=== PATIENT | female | born 1970 | race Caucasian/White ===

== ENCOUNTER 2021-01-25 06:47 | Outpatient (REF) | payer OTHER, SELFPAY ==
--- NOTE | ~2021-01-25 | XR_ITS ---
EXAMINATION: XR CHEST CLINICAL INFORMATION: Chest pain COMPARISON: None TECHNIQUE: 2 views of the chest were obtained. FINDINGS: No significant abnormality is noted involving the heart, lungs, mediastinum, bony thorax or soft tissues. XR/XR chest 2V IMPRESSION: Unremarkable chest examination.
[2021-01-25 11:10] LABS: MANUAL DIFF FLAG NO
[2021-01-25 11:16] LABS: Basophils Absolute Auto 0.1 X10*3/uL (0.0-0.2); Basophils Percent Auto 1.3 % (0-2); Eosinophils Absolute Auto 0.2 X10*3/uL (0.0-0.4); Eosinophils Percent Auto 2.2 % (0-4); Hematocrit 34.3 % (37.0-47.0); Hemoglobin 10.2 g/dl (12.0-16.0); Imm Gran Abs Auto 0.02 X10*3/uL (0.00-0.03); Imm Gran Pct Auto 0.2 % (0.0-0.4); Lymphocytes Absolute Auto 3.1 X10*3/uL (1.2-4.9); Lymphocytes Percent Auto 36.1 % (20-40); Mean Corpuscular HGB Conc 29.7 g/dl (31.0-35.0); Mean Corpuscular Hemoglobin 21.5 pg (27.0-33.0); Mean Corpuscular Volume 72.4 fL (80.0-98.0); Mean Platelet Volume 10.8 fL (9.4-12.3); Monocytes Percent Auto 11.4 % (2-11); Neutrophils Absolute Auto 4.2 x10*3/uL (2.0-8.3); Neutrophils Percent Auto 48.8 % (45-73); Platelet Count 429 X10*3/uL (160-400); Red Blood Count 4.74 X10*6/uL (4.20-5.50); Red Cell Distribution Width 18.3 % (11.0-16.0); White Blood Count 8.5 X10*3/uL (4.8-10.8)
[2021-01-25 12:04] LABS: Alanine Aminotransferase 11 U/L (0-31); Albumin Level 4.3 g/dL (3.5-5.0); Alkaline Phosphatase 63 U/L (39-117); Anion Gap 16 (12-20); Aspartate Amino Transferase 33 U/L (5-31); Bilirubin Total 0.4 mg/dL (0.0-1.0); Blood Urea Nitrogen 8 mg/dL (9-16); Calcium 9.4 mg/dL (8.4-10.2); Carbon Dioxide 20 mmol/L (22-29); Chloride 108 mmol/L (96-108); Cholesterol 326 mg/dL; Estimated Glomerular Filt Rate > 60; Glucose Fasting 88 mg/dL (60-99); HDL Cholesterol 55 mg/dL; LDL Cholesterol Calculated 236 mg/dl; Potassium 4.5 mmol/L (3.3-5.1); Sodium 139 mmol/L (135-145); Total Protein 7.1 g/dL (6.5-8.0); Triglycerides 176 mg/dL
== END 2021-01-25 06:48 | disposition home or self-care (01) ==
LOC: HO.HMGCLDS 06:47
PROVIDERS: PCP Internal Medicine; Visit Provider Internal Medicine
DX: Z00.01 Encounter for general adult medical examination with abnormal findings (principal); G47.9 Sleep disorder, unspecified; R07.9 Chest pain, unspecified; U09.9 Post COVID-19 condition, unspecified
CPT/HCPCS: 36415; 71046; 80053; 80061; 84443; 85025

== ENCOUNTER 2021-03-02 06:40 | Outpatient (REF) | payer OTHER, SELFPAY ==
[2021-03-02 11:44] LABS: MANUAL DIFF FLAG NO
[2021-03-02 11:49] LABS: Basophils Absolute Auto 0.1 X10*3/uL (0.0-0.2); Basophils Percent Auto 1.3 % (0-2); Eosinophils Absolute Auto 0.3 X10*3/uL (0.0-0.4); Eosinophils Percent Auto 3.9 % (0-4); Hematocrit 34.1 % (37.0-47.0); Hemoglobin 9.9 g/dl (12.0-16.0); Imm Gran Abs Auto 0.02 X10*3/uL (0.00-0.03); Imm Gran Pct Auto 0.3 % (0.0-0.4); Lymphocytes Absolute Auto 3.2 X10*3/uL (1.2-4.9); Lymphocytes Percent Auto 44.8 % (20-40); Mean Corpuscular Hemoglobin 20.8 pg (27.0-33.0); Mean Corpuscular Volume 71.8 fL (80.0-98.0); Mean Platelet Volume 10.7 fL (9.4-12.3); Monocytes Absolute Auto 0.6 X10*3/uL (0.1-1.2); Monocytes Percent Auto 7.9 % (2-11); Neutrophils Percent Auto 41.8 % (45-73); Platelet Count 433 X10*3/uL (160-400); Red Blood Count 4.75 X10*6/uL (4.20-5.50); Red Cell Distribution Width 16.4 % (11.0-16.0); White Blood Count 7.1 X10*3/uL (4.8-10.8)
[2021-03-02 12:14] LABS: Iron 18 mcg/dL (30-160); Percent Iron Saturation 4 % (15-50); Total Iron Binding Capacity 415 mcg/dL (228-428); Unsaturated Iron Binding 397 ug/dL
[2021-03-02 12:24] LABS: Ferritin 10 ng/mL (10-250)
[2021-03-02 12:41] LABS: Vitamin B12 514 pg/mL (200-900)
== END 2021-03-02 06:41 | disposition home or self-care (01) ==
LOC: HO.HMGCLDS 06:40
PROVIDERS: PCP Internal Medicine; Visit Provider Internal Medicine
DX: D64.9 Anemia, unspecified (principal)
CPT/HCPCS: 36415; 82607; 82728; 83540; 85025

== ENCOUNTER 2021-05-16 07:23 | Outpatient (REF) | payer OTHER, SELFPAY ==
[2021-05-16 11:42] LABS: MANUAL DIFF FLAG NO
[2021-05-16 11:58] LABS: Basophils Absolute Auto 0.1 X10*3/uL (0.0-0.2); Basophils Percent Auto 1.3 % (0-2); Eosinophils Absolute Auto 0.3 X10*3/uL (0.0-0.4); Eosinophils Percent Auto 3.8 % (0-4); Hematocrit 41.1 % (37.0-47.0); Hemoglobin 12.4 g/dl (12.0-16.0); Imm Gran Abs Auto 0.01 X10*3/uL (0.00-0.03); Imm Gran Pct Auto 0.1 % (0.0-0.4); Lymphocytes Absolute Auto 3.3 X10*3/uL (1.2-4.9); Lymphocytes Percent Auto 43.8 % (20-40); Mean Corpuscular HGB Conc 30.2 g/dl (31.0-35.0); Mean Corpuscular Volume 79.7 fL (80.0-98.0); Mean Platelet Volume 10.6 fL (9.4-12.3); Monocytes Absolute Auto 0.8 X10*3/uL (0.1-1.2); Neutrophils Absolute Auto 3.1 x10*3/uL (2.0-8.3); Platelet Count 381 X10*3/uL (160-400); Red Blood Count 5.16 X10*6/uL (4.20-5.50); Red Cell Distribution Width 21.6 % (11.0-16.0); White Blood Count 7.6 X10*3/uL (4.8-10.8)
[2021-05-16 12:47] LABS: Ferritin 10 ng/mL (10-250)
[2021-05-16 13:11] LABS: Alanine Aminotransferase 14 U/L (0-31); Albumin Level 4.3 g/dL (3.5-5.0); Alkaline Phosphatase 72 U/L (39-117); Anion Gap 12 (12-20); Aspartate Amino Transferase 35 U/L (5-31); Bilirubin Total 0.3 mg/dL (0.0-1.0); Blood Urea Nitrogen 10 mg/dL (9-16); Calcium 9.4 mg/dL (8.4-10.2); Carbon Dioxide 24 mmol/L (22-29); Chloride 107 mmol/L (96-108); Cholesterol 333 mg/dL; Estimated Glomerular Filt Rate > 60; Glucose Fasting 97 mg/dL (60-99); HDL Cholesterol 61 mg/dL; LDL Cholesterol Calculated 238 mg/dl; Potassium 4.2 mmol/L (3.3-5.1); Sodium 139 mmol/L (135-145); Total Protein 7.1 g/dL (6.5-8.0); Triglycerides 174 mg/dL
== END 2021-05-16 07:24 | disposition home or self-care (01) ==
LOC: HO.HMGCLDS 07:23
PROVIDERS: PCP Internal Medicine; Visit Provider Internal Medicine
DX: D50.9 Iron deficiency anemia, unspecified (principal); L65.9 Nonscarring hair loss, unspecified; E78.9 Disorder of lipoprotein metabolism, unspecified
CPT/HCPCS: 36415; 80053; 80061; 82728; 85025

== ENCOUNTER 2021-08-22 08:31 | Outpatient (REF) | payer OTHER, SELFPAY ==
[2021-08-22 11:59] LABS: Alanine Aminotransferase 12 U/L (0-31); Albumin Level 4.4 g/dL (3.5-5.0); Alkaline Phosphatase 69 U/L (39-117); Anion Gap 12 (12-20); Aspartate Amino Transferase 35 U/L (5-31); Bilirubin Total 0.9 mg/dL (0.0-1.0); Blood Urea Nitrogen 10 mg/dL (9-16); Carbon Dioxide 25 mmol/L (22-29); Chloride 108 mmol/L (96-108); Cholesterol 197 mg/dL; Estimated Glomerular Filt Rate > 60; Glucose Fasting 96 mg/dL (60-99); HDL Cholesterol 54 mg/dL; LDL Cholesterol Calculated 121 mg/dl; Potassium 4.2 mmol/L (3.3-5.1); Sodium 141 mmol/L (135-145); Total Protein 6.8 g/dL (6.5-8.0); Triglycerides 114 mg/dL
[2021-08-22 12:27] LABS: Ferritin 19 ng/mL (10-250); TSH reflex Free T4 1.67 uIU/mL (0.32-4.0)
[2021-08-22 12:31] LABS: Vitamin B12 574 pg/mL (200-900)
[2021-08-29 15:06] LABS: Vitamin D 25-OH, D2 <4 ng/mL; Vitamin D 25-OH, D3 32 ng/mL; Vitamin D 25-OH, Total 32 ng/mL (30-100)
== END 2021-08-22 08:32 | disposition home or self-care (01) ==
LOC: HO.HMGCLDS 08:31
PROVIDERS: PCP Internal Medicine; Visit Provider Internal Medicine
DX: E78.9 Disorder of lipoprotein metabolism, unspecified (principal); D50.9 Iron deficiency anemia, unspecified; R00.2 Palpitations
CPT/HCPCS: 36415; 80053; 80061; 82306; 82607; 82728; 84443

== ENCOUNTER 2022-04-11 06:54 | Outpatient (REF) | payer OTHER, SELFPAY ==
[2022-04-11 11:14] LABS: MANUAL DIFF FLAG NO
[2022-04-11 11:31] LABS: Basophils Absolute Auto 0.1 X10*3/uL (0.0-0.2); Basophils Percent Auto 1.2 % (0-2); Eosinophils Absolute Auto 0.3 X10*3/uL (0.0-0.4); Eosinophils Percent Auto 3.7 % (0-4); Hematocrit 42.4 % (37.0-47.0); Hemoglobin 14.1 g/dl (12.0-16.0); Imm Gran Abs Auto 0.01 X10*3/uL (0.00-0.03); Imm Gran Pct Auto 0.1 % (0.0-0.4); Lymphocytes Absolute Auto 3.1 X10*3/uL (1.2-4.9); Lymphocytes Percent Auto 43.1 % (20-40); Mean Corpuscular HGB Conc 33.3 g/dl (31.0-35.0); Mean Corpuscular Hemoglobin 28.7 pg (27.0-33.0); Mean Corpuscular Volume 86.4 fL (80.0-98.0); Mean Platelet Volume 10.6 fL (9.4-12.3); Monocytes Absolute Auto 0.7 X10*3/uL (0.1-1.2); Neutrophils Percent Auto 41.9 % (45-73); Platelet Count 323 X10*3/uL (160-400); Red Blood Count 4.91 X10*6/uL (4.20-5.50); Red Cell Distribution Width 11.7 % (11.0-16.0); White Blood Count 7.3 X10*3/uL (4.8-10.8)
[2022-04-11 12:06] LABS: Alanine Aminotransferase 15 U/L (0-31); Albumin Level 4.3 g/dL (3.5-5.0); Alkaline Phosphatase 73 U/L (39-117); Anion Gap 14 (12-20); Aspartate Amino Transferase 43 U/L (5-31); Bilirubin Total 0.7 mg/dL (0.0-1.0); Blood Urea Nitrogen 12 mg/dL (9-16); Calcium 9.7 mg/dL (8.4-10.2); Carbon Dioxide 27 mmol/L (22-29); Chloride 107 mmol/L (96-108); Cholesterol 240 mg/dL; Estimated Glomerular Filt Rate > 60; Glucose Fasting 88 mg/dL (60-99); HDL Cholesterol 69 mg/dL; LDL Cholesterol Calculated 147 mg/dl; Potassium 4.3 mmol/L (3.3-5.1); Sodium 144 mmol/L (135-145); Total Protein 6.5 g/dL (6.5-8.0); Triglycerides 123 mg/dL
[2022-04-11 12:20] LABS: Ferritin 33 ng/mL (10-250)
== END 2022-04-11 06:55 | disposition home or self-care (01) ==
LOC: HO.HMGCLDS 06:54
PROVIDERS: Visit Provider Internal Medicine
DX: D50.9 Iron deficiency anemia, unspecified (principal); E78.9 Disorder of lipoprotein metabolism, unspecified
CPT/HCPCS: 36415; 80053; 80061; 82728; 85025

== ENCOUNTER 2022-08-28 06:37 | Outpatient (REF) | payer OTHER, SELFPAY ==
[2022-08-28 11:13] LABS: MANUAL DIFF FLAG NO
[2022-08-28 11:37] LABS: Basophils Absolute Auto 0.1 X10*3/uL (0.0-0.2); Basophils Percent Auto 0.9 % (0-2); Eosinophils Absolute Auto 0.2 X10*3/uL (0.0-0.4); Eosinophils Percent Auto 2.5 % (0-4); Hematocrit 41.7 % (37.0-47.0); Hemoglobin 13.9 g/dl (12.0-16.0); Imm Gran Abs Auto 0.01 X10*3/uL (0.00-0.03); Imm Gran Pct Auto 0.1 % (0.0-0.4); Lymphocytes Absolute Auto 3.3 X10*3/uL (1.2-4.9); Lymphocytes Percent Auto 40.9 % (20-40); Mean Corpuscular HGB Conc 33.3 g/dl (31.0-35.0); Mean Corpuscular Hemoglobin 28.8 pg (27.0-33.0); Mean Corpuscular Volume 86.3 fL (80.0-98.0); Mean Platelet Volume 10.6 fL (9.4-12.3); Monocytes Absolute Auto 0.8 X10*3/uL (0.1-1.2); Neutrophils Absolute Auto 3.6 x10*3/uL (2.0-8.3); Neutrophils Percent Auto 45.6 % (45-73); Platelet Count 340 X10*3/uL (160-400); Red Blood Count 4.83 X10*6/uL (4.20-5.50); Red Cell Distribution Width 11.9 % (11.0-16.0)
[2022-08-28 12:38] LABS: Alanine Aminotransferase 14 U/L (0-31); Albumin Level 4.2 g/dL (3.5-5.0); Alkaline Phosphatase 62 U/L (39-117); Anion Gap 14 (12-20); Aspartate Amino Transferase 36 U/L (5-31); Bilirubin Total 1.1 mg/dL (0.0-1.0); Blood Urea Nitrogen 10 mg/dL (9-16); Calcium 9.2 mg/dL (8.4-10.2); Carbon Dioxide 21 mmol/L (22-29); Chloride 109 mmol/L (96-108); Cholesterol 199 mg/dL; Estimated Glomerular Filt Rate > 60; Glucose Fasting 83 mg/dL (60-99); HDL Cholesterol 61 mg/dL; LDL Cholesterol Calculated 113 mg/dl; Potassium 3.6 mmol/L (3.3-5.1); Sodium 140 mmol/L (135-145); Total Protein 6.7 g/dL (6.5-8.0); Triglycerides 127 mg/dL
== END 2022-08-28 06:38 | disposition home or self-care (01) ==
LOC: HO.HMGCLDS 06:37
PROVIDERS: Absent Provider Internal Medicine Medical Oncology; PCP Internal Medicine; Visit Provider Internal Medicine
DX: D50.9 Iron deficiency anemia, unspecified (principal); E78.9 Disorder of lipoprotein metabolism, unspecified; R23.2 Flushing
CPT/HCPCS: 36415; 80053; 80061; 85025

== ENCOUNTER 2022-08-30 08:12 | Outpatient (AMB) | payer OTHER, SELFPAY ==
--- NOTE | 2022-08-30 08:14 | MHC.PC.OV ---
Vital Signs 08/30/22 08:17 Height 5 ft 2 in Weight 132 lb BMI 24.1 BP 118/62 Blood Pressure Location Rt brachial Position Sitting Pulse 100 Pulse Source Pulse Oximeter Pulse Oximetry (%) 95 Oxygen Delivery Method Room Air Intake Visit Reasons: PE Allergies amoxicillin [AMOXICILLIN] Allergy (Unknown, Verified 08/30/22 08:18) RASH Medication List - Last Reconciled 08/30/22 by Ana Flores MD ascorbic acid (vitamin C) (Vitamin C) 500 mg PO DAILY biotin 10,000 mg PO DAILY cholecalciferol (vitamin D3) (Vitamin D3) 25 mcg PO DAILY ferrous sulfate 324 mg PO ONCE 90 days scopolamine base 1 patch transdermal Q3D PRN simvastatin 20 mg PO DAILY 90 days Tobacco use date assessed: 08/30/22 Dental Screening Dental Screen Date: 08/30/22 Did you have a dental visit in the last 12 months?: Yes Did you have a dental problem in the last 6 months where you did not have access to dental care?: No Was dental information given to patient?: No HPI PE HPI Details Patient is a 52-year-old female came in today for physical exam Due for mammogram She has OBGYN doctor Vikas in [place], breast exams Pap smears through him Patient does not want to have a colonoscopy but she agrees to have a Cologuard Patient says that every now and then she gets pain in her right upper quadrant and it has been happening for the past 2 years She is requesting an ultrasound of her abdomen she is concerned about splenomegaly Labs were done recently reviewed with the patient no signs of splenomegaly in the labs Her physical exam is benign. For patient's own peace of mind I have ordered the ultrasound of abdomen. 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 She is taking simvastatin 20 mg Iron supplement once a week, vitamin-D and vitamin-C. Follow-up 6 months [facility] Medical History Urinary tract infection Family History Other No family history of cancer Social History Household Members: Spouse Housing: House Are you a primary health care attorney to a significant other at home: No Do you presently have visiting nurse or other home services: No Patient Tobacco Use Status: Never used Tobacco e-Cigarette/Vaping Use: Never Used service: No Current occupational status: employed Cognitive needs: No Hearing needs: No Vision needs: No Questionnaire Thrive Questionnaire Date Thrive assessed: 05/30/21 AUDIT C Alcohol Use Questionnaire (AUDIT-C) 1. How often do you have a drink containing alcohol?: Never 3. How often do you have six or more drinks on one occasion?: Never Total Score: 0 Score Reviewed/Action Taken: Yes LANNY-7 AMB Questionnaire LANNY-7 Date LANNY - 7 assessed: 05/30/21 Source: Developed by Drs. Cesar Santamaria, Mali Champion, Cal Lomeli and colleagues, with an educational leola from [employer]. Review of Systems Const Denies chills, Denies fever(s) and Denies headache(s) Eyes Denies blurry vision ENT Denies headache(s), Denies nasal discharge, Denies nasal obstruction, Denies odynophagia and Denies sinus pain Card Denies chest pain at rest and Denies chest pain with activity Resp Denies cough and Denies hemoptysis GI Denies diarrhea, Denies odynophagia, Denies vomiting and Denies hematemesis Reports as per HPI Musc Denies abnormal gait Skin/Breast Reports as per HPI Neuro Denies Neuro-related abnormal movements, Denies Abnormal speech present, Denies abnormal gait, Denies headache(s) and Denies Sensory deficit (Neuro) Psych Denies mood swings and Denies paranoia Endo Reports as per HPI Gera/Lymph Reports as per HPI Aller/Immun Reports as per HPI Physical exam (Primary Care) Vital Signs: Last Vital Signs Pulse 100 08/30/22 08:17 BP 118/62 08/30/22 08:17 Pulse Ox 95 08/30/22 08:17 Oxygen Delivery Method Room Air 08/30/22 08:17 BMI result Body Mass Index 24.1 Tobacco/Smoking Status: Tobacco use Status Tobacco use date assessed 08/30/22 08/30/22 08:19 Patient Tobacco Use Status Never used Tobacco 08/30/22 08:19 e-Cigarette/Vaping Use Never Used 08/30/22 08:19 Thrive Assessment: Date of Thrive Assessment Date Thrive assessed 05/30/21 08/30/22 08:19 Const General: cooperative, comfortable and no acute distress Orientation/consciousness: patient oriented x3 HENMT Head: Yes normocephalic and Yes atraumatic Eyes General: appearance normal, both eyes and all related structures Pupils: Equal, round and reactive pupils present EOM: EOMs intact bilaterally Neck Neck: Yes supple and No lymphadenopathy Thyroid: Thyroid normal Lymphatic: no lymphadenopathy noted Resp Effort & Inspection: normal respiratory effort and able to speak in complete sentences Auscultation: clear to auscultation bilaterally Cardio Heart sounds: S1 normal heart sound present and S2 normal heart sound present GI Palpation (GI): Soft to palpation and nontender Auscultation: normal bowel sounds General: Yes no CVA tenderness Back/Spine/Pelvis Back: no CVA tenderness Skin General skin exam: elasticity normal and turgor normal Neuro General: patient oriented x3 and gait normal Cranial nerves: Yes Equal, round and reactive pupils present Speech: No Abnormal speech present Sensory Exam: No Sensory deficit (Neuro) Coordination: tandem gait normal and Romberg test negative Extrem General: Yes normal exam except as noted and No edema Assessment and Plan Assessment & Plan (1) Encounter for general adult medical examination with abnormal findings: Code(s): Z00.01 - Encounter for general adult medical examination with abnormal findings (2) Lipid disorder: Code(s): E78.9 - Disorder of lipoprotein metabolism, unspecified (3) Left upper quadrant abdominal pain: Code(s): R10.12 - Left upper quadrant pain (4) LFT elevation: Code(s): R79.89 - Other specified abnormal findings of blood chemistry Plan Patient is a 52-year-old female came in today for physical exam Due for mammogram She has OBGYN doctor Valeryk in [place], breast exams Pap smears through him Patient does not want to have a colonoscopy but she agrees to have a Cologuard Patient says that every now and then she gets pain in her right upper quadrant and it has been happening for the past 2 years She is requesting an ultrasound of her abdomen she is concerned about splenomegaly Labs were done recently reviewed with the patient no signs of splenomegaly in the labs Her physical exam is benign. For patient's own peace of mind I have ordered the ultrasound of abdomen. 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 She is taking simvastatin 20 mg Iron supplement once a week, vitamin-D and vitamin-C. Follow-up 6 months Orders: Orders US abdomen complete Today R10.12 - Left upper quadrant pain MM tomosynthesis screening BI Today Z12.31 - Encounter for screening mammogram for malignant neoplasm of breast Referrals Cologuard Test Z12.11 - Encounter for screening for malignant neoplasm of colon Coding Level of Care Code Est Pt Prev Care 40-64y(34427) Diagnoses Encounter for general adult medical examination with abnormal findings Z00.01 Lipid disorder E78.9 Left upper quadrant abdominal pain R10.12 LFT elevation R79.89
[2022-08-30 08:17] VITALS: BP 118/62; PULSE 100; O2SAT 95; BMI 24.1
== END 2022-08-30 09:00 | disposition home or self-care (01) ==
PROVIDERS: Visit Provider Internal Medicine
DX: Z00.01 Encounter for general adult medical examination with abnormal findings (principal); E78.9 Disorder of lipoprotein metabolism, unspecified; R10.12 Left upper quadrant pain; R79.89 Other specified abnormal findings of blood chemistry
CPT/HCPCS: 99396

== ENCOUNTER 2022-09-11 07:59 | Outpatient (REF) | payer OTHER, SELFPAY ==
--- NOTE | ~2022-09-11 | US_ITS ---
EXAMINATION: US ABDOMEN COMPLETE CLINICAL INFORMATION: Left upper quadrant pain, elevated liver function test. COMPARISON: None available. TECHNIQUE: Real-time imaging of the abdominal viscera. FINDINGS: PANCREAS: Normal. ABDOMINAL AORTA: The proximal, mid, and distal segments are normal in caliber. INFERIOR VENA CAVA: Visualized portions are normal. LIVER: Normal. The liver is normal in size. The liver contour is normal. Parenchymal echogenicity is normal. No focal hepatic lesion. There is no intrahepatic biliary duct dilatation seen. GALLBLADDER: Normal. The gallbladder is physiologically distended without evidence of stones, sludge, polyps, wall thickening or pericholecystic fluid. COMMON BILE DUCT: Normal in caliber measuring 0.26 cm in diameter. RIGHT KIDNEY: No nephrolithiasis. No hydronephrosis or focal parenchymal lesions. The kidney measures 10.1 cm in maximum dimension. LEFT KIDNEY: Nonobstructive 0.3 cm calculus in the interpolar region. No hydronephrosis or focal parenchymal lesions. The kidney measures 10.3 cm in maximum dimension. SPLEEN: Normal. The spleen measures 8.9 cm in maximum dimension. FREE FLUID: None. US/US abdomen complete IMPRESSION: 1. Nonobstructive 0.3 cm calculus in the left kidney. 2. Otherwise, normal examination.
== END 2022-09-11 08:00 | disposition home or self-care (01) ==
LOC: HO.HMGCX 07:59
PROVIDERS: PCP Internal Medicine; Visit Provider Internal Medicine
DX: R10.12 Left upper quadrant pain (principal)
CPT/HCPCS: 76700

== ENCOUNTER 2022-10-22 13:03 | Outpatient (AMB) | payer OTHER, SELFPAY ==
--- NOTE | 2022-10-22 13:05 | A.OFFPC_ITS ---
Vital Signs 10/22/22 13:10 Height 5 ft 2 in Weight 128 lb BMI 23.4 BP 128/72 Blood Pressure Location Rt brachial Position Sitting Pulse 91 Pulse Source Pulse Oximeter Pulse Oximetry (%) 98 Oxygen Delivery Method Room Air Intake Visit Reasons: Follow Up ~ US report Allergies amoxicillin [AMOXICILLIN] Allergy (Unknown, Verified 10/22/22 13:05) RASH Medication List - Last Reconciled 10/22/22 by Ana Flores MD ascorbic acid (vitamin C) (Vitamin C) 500 mg PO DAILY biotin 10,000 mg PO DAILY cholecalciferol (vitamin D3) (Vitamin D3) 25 mcg PO DAILY ferrous sulfate 324 mg PO ONCE 90 days scopolamine base 1 patch transdermal Q3D PRN simvastatin 20 mg PO DAILY 90 days Tobacco use date assessed: 10/22/22 Dental Screening Dental Screen Date: 10/22/22 Did you have a dental visit in the last 12 months?: Yes Did you have a dental problem in the last 6 months where you did not have access to dental care?: No Was dental information given to patient?: No HPI Follow Up ~ US report HPI Details Patient is a 52 year female Came in today to go over her ultrasound abdomen report Patient was concerned that she keep having discomfort left upper quadrant and back She was concerned about her spleen Ultrasound shows normal spleen normal liver and within normal range gallbladder However it does show Nonobstructive 0.3 cm calculus in the left kidney. Explained to patient that most likely the stone is not causing any discomfort. There is no hydronephrosis But we talked about the symptoms if the stone gets bigger or move and start causing obstructions. She wanted to talk about what can be done if that happens Discussed briefly the procedure of lithotripsy or cystoscopy for removal of the stone from ureter [facility] Medical History Urinary tract infection Family History Other No family history of cancer Social History Household Members: Spouse Housing: House Are you a primary career services officer to a significant other at home: No Do you presently have visiting nurse or other home services: No Patient Tobacco Use Status: Never used Tobacco e-Cigarette/Vaping Use: Never Used service: No Current occupational status: employed Cognitive needs: No Hearing needs: No Vision needs: No Questionnaire PHQ-9 Over the last 2 weeks, how often have you been bothered by any of the following problems? 1. Little interest or pleasure in doing things: not at all 2. Feeling down, depressed, or hopeless: not at all 3. Trouble falling or staying asleep, or sleeping too much: more than half the days 4. Feeling tired or having little energy: not at all 5. Poor appetite or overeating: not at all 6. Feeling bad about yourself - or that you are a failure or have let yourself or your family down: not at all 7. Trouble concentrating on things, such as reading the newspaper or watching television: not at all 8. Moving or speaking so slowly that other people could have noticed. Or the opposite - being so fidgety or restless that you have been moving around a lot more than usual: not at all 9. Thoughts that you would be better off or of hurting yourself in some way: not at all Total score: 2 Depression Screening Interpretation: Negative 06141 - PHQ-9 Billing: Yes Source: Developed by Drs. Cesar Santamaria, Mali Champion, Cal Lomeli and colleagues, with an educational leola from [employer]. Thrive Questionnaire Date Thrive assessed: 10/22/22 I am a: Patient What is your living situation today?: I have a steady place to live Within the past 12 months, did the food you bought not last and you didn't have the money to get more?: Never true Within the past 12 months, did you worry whether your food would run out before you got money to buy more?: Never true Do you have trouble paying for medicines?: No Do you have trouble getting transportation to medical appointments?: No Do you have trouble paying your heating and electricity bill?: No Do you have trouble taking care of your child, family member or friend?: No Do you have trouble with day-to-day activities such as bathing, preparing meals, shopping, managing finances, etc.?: No Are you currently unemployed and looking for a job?: No Are you interested in more education?: No AUDIT C Alcohol Use Questionnaire (AUDIT-C) 1. How often do you have a drink containing alcohol?: Never 3. How often do you have six or more drinks on one occasion?: Never Total Score: 0 Score Reviewed/Action Taken: Yes LANNY-7 AMB Questionnaire LANNY-7 Date LANNY - 7 assessed: 10/22/22 Feeling nervous, anxious, or on edge: 1 = Several days Not being able to stop or control worryin = Several days Worrying too much about different things: 1 = Several days Trouble relaxin = Several days Being so restless that it is hard to sit still: 0 = Not at all Becoming easily annoyed or irritable: 0 = Not at all Feeling afraid as if something awful might happen: 1 = Several days Total LANNY-7 score (0-4 normal; 5-9 mild; 10-14 moderate; 15-21 severe): 5 Source: Developed by Drs. Cesar Santamaria, Mali Champion, Cal Lomeli and colleagues, with an educational leola from [employer]. LANNY-7 Assessment Billing LANNY-7 Assessment Tool: LANNY-7 Assessment 44692 Review of Systems Const Denies chills and Denies fever(s) ENT Denies epistaxis and Denies nasal discharge Card Denies chest pain Resp Denies chest congestion, Denies cough and Denies hemoptysis GI Denies diarrhea and Denies nausea Skin/Breast Denies rash Neuro Reports no additional complaints Psych Reports no additional complaints Endo Reports no additional complaints Physical exam (Primary Care) Vital Signs: Last Vital Signs Pulse 91 10/22/22 13:10 BP 128/72 10/22/22 13:10 Pulse Ox 98 10/22/22 13:10 Oxygen Delivery Method Room Air 10/22/22 13:10 BMI result Body Mass Index 23.4 Tobacco/Smoking Status: Tobacco use Status Tobacco use date assessed 10/22/22 10/22/22 13:05 Patient Tobacco Use Status Never used Tobacco 10/22/22 13:05 e-Cigarette/Vaping Use Never Used 10/22/22 13:05 PHQ-9: PHQ-9 Score PHQ-9: Total score 2 10/22/22 13:30 Depression Screening Interpretation: Negative Thrive Assessment: Date of Thrive Assessment Date Thrive assessed 10/22/22 10/22/22 13:30 Const General: cooperative, comfortable and no acute distress Orientation/consciousness: patient oriented x3 HENMT Head: Yes normocephalic Eyes General: appearance normal, both eyes and all related structures Neck Neck: Yes supple Resp Effort & Inspection: normal respiratory effort, no cough and no stridor Cardio Rhythm: regular rhythm Heart sounds: S1 normal heart sound present and S2 normal heart sound present Skin General skin exam: turgor normal Neuro General: patient oriented x3, tone normal and moves all extremities Extrem Right lower extremity: no edema Left lower extremity: no edema Assessment and Plan Assessment & Plan (1) Renal calculus, left: Code(s): N20.0 - Calculus of kidney Plan Patient is a 52 year female Came in today to go over her ultrasound abdomen report Patient was concerned that she keep having discomfort left upper quadrant and back She was concerned about her spleen Ultrasound shows normal spleen normal liver and within normal range gallbladder However it does show Nonobstructive 0.3 cm calculus in the left kidney. Explained to patient that most likely the stone is not causing any discomfort. There is no hydronephrosis But we talked about the symptoms if the stone gets bigger or move and start causing obstructions. She wanted to talk about what can be done if that happens Discussed briefly the procedure of lithotripsy or cystoscopy for removal of the stone from ureter Coding Level of Care Code Est Pt Level 3 (98828) Diagnoses Renal calculus, left N20.0 Additional Codes LANNY-7 Assessment Billing - LANNY-7 Assessment Tool: LANNY-7 Assessment [id number] ([id number])
[2022-10-22 13:10] VITALS: BP 128/72; PULSE 91; O2SAT 98; BMI 23.4
== END 2022-10-22 15:05 | disposition home or self-care (01) ==
PROVIDERS: PCP Internal Medicine; Visit Provider Internal Medicine
DX: N20.0 Calculus of kidney (principal)
CPT/HCPCS: 99213

== ENCOUNTER 2023-03-07 07:50 | Outpatient (AMB) | payer OTHER, SELFPAY ==
--- NOTE | 2023-03-07 08:03 | MHC.PC.OV ---
Vital Signs 03/07/23 08:04 Height 5 ft 2 in Weight 131 lb 8 oz BMI 24.0 BP 120/86 Blood Pressure Location Rt brachial Position Sitting Pulse 76 Pulse Source Pulse Oximeter Pulse Oximetry (%) 98 Oxygen Delivery Method Room Air Intake Visit Reasons: 6 Month follow up Allergies amoxicillin [AMOXICILLIN] Allergy (Unknown, Verified 03/07/23 08:06) RASH Medication List - Last Reconciled 03/07/23 by Ana Flores MD ascorbic acid (vitamin C) (Vitamin C) 500 mg PO DAILY biotin 10,000 mg PO DAILY cholecalciferol (vitamin D3) (Vitamin D3) 25 mcg PO DAILY ferrous sulfate 324 mg PO ONCE 90 days scopolamine base 1 patch transdermal Q3D PRN simvastatin 20 mg PO DAILY 90 days Tobacco use date assessed: 03/07/23 Dental Screening Dental Screen Date: 03/07/23 Did you have a dental visit in the last 12 months?: Yes Did you have a dental problem in the last 6 months where you did not have access to dental care?: No Was dental information given to patient?: Patient has dentist HPI 6 Month follow up HPI Details Patient is a 52-year-old female came in for regular follow-up appointment Patient is due for labs last set of labs was August of last year 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 She is complaining of paresthesia both hands The problem has been going on for a while, patient has been wearing splints at night which does help Patient says that she feels weak in her hands now and she gets electric shock-like feeling starting from her elbows all the way to her hands I have ordered EMG nerve conduction study for further evaluate the severity of problem before referring her. She is taking simvastatin 20 mg Iron supplement once a week, vitamin-D and vitamin-C. Follow-up 6 months for physical exam [facility] Medical History Urinary tract infection Family History Other No family history of cancer Social History Household Members: Spouse Housing: House Are you a primary care director rn to a significant other at home: No Do you presently have visiting nurse or other home services: No Patient Tobacco Use Status: Never used Tobacco e-Cigarette/Vaping Use: Never Used service: No Current occupational status: employed Cognitive needs: No Hearing needs: No Vision needs: No Questionnaire PHQ-9 Over the last 2 weeks, how often have you been bothered by any of the following problems? 1. Little interest or pleasure in doing things: not at all 2. Feeling down, depressed, or hopeless: not at all 3. Trouble falling or staying asleep, or sleeping too much: several days 4. Feeling tired or having little energy: not at all 5. Poor appetite or overeating: not at all 6. Feeling bad about yourself - or that you are a failure or have let yourself or your family down: not at all 7. Trouble concentrating on things, such as reading the newspaper or watching television: not at all 8. Moving or speaking so slowly that other people could have noticed. Or the opposite - being so fidgety or restless that you have been moving around a lot more than usual: not at all 9. Thoughts that you would be better off or of hurting yourself in some way: not at all Total score: 1 Depression Screening Interpretation: Negative Depression Screening Done: Yes 99089 - PHQ-9 Billing: Yes Source: Developed by Drs. Cesar Santamaria, Mali Champion, Cal Lomeli and colleagues, with an educational leola from [employer]. Thrive Questionnaire Date Thrive assessed: 03/07/23 I am a: Patient What is your living situation today?: I have a steady place to live Within the past 12 months, did the food you bought not last and you didn't have the money to get more?: Never true Within the past 12 months, did you worry whether your food would run out before you got money to buy more?: Never true Do you have trouble paying for medicines?: No Do you have trouble getting transportation to medical appointments?: No Do you have trouble paying your heating and electricity bill?: No Do you have trouble taking care of your child, family member or friend?: No Do you have trouble with day-to-day activities such as bathing, preparing meals, shopping, managing finances, etc.?: No Are you currently unemployed and looking for a job?: No Are you interested in more education?: No Please select the resources that you would like help with: None Currently or been in a relationship where the following occur: no concerns reported THRIVE Score: 0 AUDIT C Alcohol Use Questionnaire (AUDIT-C) 1. How often do you have a drink containing alcohol?: Never 3. How often do you have six or more drinks on one occasion?: Never Total Score: 0 Score Reviewed/Action Taken: No LANNY-7 AMB Questionnaire LANNY-7 Date LANNY - 7 assessed: 03/07/23 Feeling nervous, anxious, or on edge: 1 = Several days Not being able to stop or control worryin = Several days Worrying too much about different things: 1 = Several days Trouble relaxin = Several days Being so restless that it is hard to sit still: 0 = Not at all Becoming easily annoyed or irritable: 0 = Not at all Feeling afraid as if something awful might happen: 0 = Not at all Total LANNY-7 score (0-4 normal; 5-9 mild; 10-14 moderate; 15-21 severe): 4 Source: Developed by Drs. Cesar Santamaria, Mali Champion, Cal Lomeli and colleagues, with an educational leola from [employer]. LANNY-7 Assessment Billing LANNY-7 Assessment Tool: LANNY-7 Assessment 62081 Review of Systems Const Denies chills and Denies fever(s) ENT Denies epistaxis and Denies nasal discharge Card Denies chest pain Resp Denies chest congestion, Denies cough and Denies hemoptysis GI Denies diarrhea and Denies nausea Skin/Breast Denies rash Neuro Reports no additional complaints Psych Reports no additional complaints Endo Reports no additional complaints Physical exam (Primary Care) Vital Signs: Last Vital Signs Pulse 76 03/07/23 08:04 BP 120/86 03/07/23 08:04 Pulse Ox 98 03/07/23 08:04 Oxygen Delivery Method Room Air 03/07/23 08:04 BMI result Body Mass Index 24.0 Tobacco/Smoking Status: Tobacco use Status Tobacco use date assessed 03/07/23 03/07/23 08:08 Patient Tobacco Use Status Never used Tobacco 03/07/23 08:06 e-Cigarette/Vaping Use Never Used 03/07/23 08:06 PHQ-9: PHQ-9 Score PHQ-9: Total score 1 03/07/23 08:22 Depression Screening Interpretation: Negative Thrive Assessment: Date of Thrive Assessment Date Thrive assessed 03/07/23 03/07/23 08:14 Currently or been in a relationship where the following occur: no concerns reported Const General: cooperative, comfortable and no acute distress Orientation/consciousness: patient oriented x3 HENMT Head: Yes normocephalic Eyes General: appearance normal, both eyes and all related structures Neck Neck: Yes supple Resp Effort & Inspection: normal respiratory effort, no cough and no stridor Cardio Rhythm: regular rhythm Heart sounds: S1 normal heart sound present and S2 normal heart sound present Skin General skin exam: turgor normal Neuro Other: Handgrip is equal both hands General: patient oriented x3, tone normal and moves all extremities Extrem Right lower extremity: no edema Left lower extremity: no edema Assessment and Plan Assessment & Plan (1) Paresthesia of both hands: Code(s): R20.2 - Paresthesia of skin (2) Weakness of both hands: Code(s): R29.898 - Other symptoms and signs involving the musculoskeletal system (3) Lipid disorder: Code(s): E78.9 - Disorder of lipoprotein metabolism, unspecified (4) LFT elevation: Code(s): R79.89 - Other specified abnormal findings of blood chemistry Plan Patient is a 52-year-old female came in for regular follow-up appointment Patient is due for labs last set of labs was August of last year 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 She is complaining of paresthesia both hands The problem has been going on for a while, patient has been wearing splints at night which does help Patient says that she feels weak in her hands now and she gets electric shock-like feeling starting from her elbows all the way to her hands I have ordered EMG nerve conduction study for further evaluate the severity of problem before referring her. She is taking simvastatin 20 mg She has mildly elevated LFTs, we will continue to monitor that Iron supplement once a week, vitamin-D and vitamin-C. Follow-up 6 months for physical exam Orders: Orders Lipid Panel Today E78.9 - Disorder of lipoprotein metabolism, unspecified, R79.89 - Other specified abnormal findings of blood chemistry NE nerve conduction velocity Today R20.2 - Paresthesia of skin, R29.898 - Other symptoms and signs involving the musculoskeletal system Comprehensive [place]. Panel Fast 5 Months E78.9 - Disorder of lipoprotein metabolism, unspecified Lipid Panel 5 Months E78.9 - Disorder of lipoprotein metabolism, unspecified Complete Blood Count Auto Diff Today E78.9 - Disorder of lipoprotein metabolism, unspecified, R79.89 - Other specified abnormal findings of blood chemistry Comprehensive [place]. Panel Fast Today E78.9 - Disorder of lipoprotein metabolism, unspecified, R79.89 - Other specified abnormal findings of blood chemistry NE electromyogram (EMG) Today R20.2 - Paresthesia of skin, R29.898 - Other symptoms and signs involving the musculoskeletal system Coding Level of Care Code Est Pt Level 4 (69169) Diagnoses Paresthesia of both hands R20.2 Weakness of both hands R29.898 Lipid disorder E78.9 LFT elevation R79.89 Additional Codes LANNY-7 Assessment Billing - LANNY-7 Assessment Tool: LANNY-7 Assessment 32752 ([id number])
[2023-03-07 08:04] VITALS: BP 120/86; PULSE 76; O2SAT 98; BMI 24.0
== END 2023-03-07 09:39 | disposition home or self-care (01) ==
PROVIDERS: PCP Internal Medicine; Visit Provider Internal Medicine
DX: R20.2 Paresthesia of skin (principal); R29.898 Other symptoms and signs involving the musculoskeletal system; E78.9 Disorder of lipoprotein metabolism, unspecified; R79.89 Other specified abnormal findings of blood chemistry
CPT/HCPCS: 99214

== ENCOUNTER 2023-03-07 08:15 | Outpatient (REF) | payer OTHER, SELFPAY ==
[2023-03-07 11:40] LABS: MANUAL DIFF FLAG NO
[2023-03-07 11:55] LABS: Basophils Absolute Auto 0.1 X10*3/uL (0.0-0.2); Basophils Percent Auto 1.4 % (0-2); Eosinophils Absolute Auto 0.2 X10*3/uL (0.0-0.4); Hematocrit 43.4 % (37.0-47.0); Hemoglobin 14.6 g/dl (12.0-16.0); Imm Gran Abs Auto 0.03 X10*3/uL (0.00-0.03); Imm Gran Pct Auto 0.5 % (0.0-0.4); Lymphocytes Absolute Auto 2.4 X10*3/uL (1.2-4.9); Lymphocytes Percent Auto 35.4 % (20-40); Mean Corpuscular HGB Conc 33.6 g/dl (31.0-35.0); Mean Corpuscular Hemoglobin 28.8 pg (27.0-33.0); Mean Corpuscular Volume 85.6 fL (80.0-98.0); Mean Platelet Volume 10.4 fL (9.4-12.3); Monocytes Absolute Auto 0.7 X10*3/uL (0.1-1.2); Monocytes Percent Auto 10.4 % (2-11); Neutrophils Absolute Auto 3.3 x10*3/uL (2.0-8.3); Neutrophils Percent Auto 49.3 % (45-73); Platelet Count 356 X10*3/uL (160-400); Red Blood Count 5.07 X10*6/uL (4.20-5.50); White Blood Count 6.7 X10*3/uL (4.8-10.8)
[2023-03-07 12:22] LABS: Alanine Aminotransferase 16 U/L (0-31); Albumin Level 4.4 g/dL (3.5-5.0); Alkaline Phosphatase 79 U/L (39-117); Anion Gap 14 (12-20); Aspartate Amino Transferase 37 U/L (5-31); Bilirubin Total 0.8 mg/dL (0.0-1.0); Blood Urea Nitrogen 11 mg/dL (9-16); Calcium 9.7 mg/dL (8.4-10.2); Carbon Dioxide 27 mmol/L (22-29); Chloride 106 mmol/L (96-108); Cholesterol 217 mg/dL (<200); Estimated Glomerular Filt Rate > 60; Glucose Fasting 87 mg/dL (60-99); HDL Cholesterol 66 mg/dL (>40); LDL Cholesterol Calculated 122 mg/dL (<100); Potassium 3.7 mmol/L (3.3-5.1); Sodium 143 mmol/L (135-145); Total Protein 7.2 g/dL (6.5-8.0); Triglycerides 147 mg/dL (<150)
== END 2023-03-07 08:16 | disposition home or self-care (01) ==
LOC: HO.HMGCLDS 08:15
PROVIDERS: PCP Internal Medicine; Visit Provider Internal Medicine
DX: E78.9 Disorder of lipoprotein metabolism, unspecified (principal); R79.89 Other specified abnormal findings of blood chemistry
CPT/HCPCS: 36415; 80053; 80061; 85025

== ENCOUNTER 2023-03-20 09:11 | Outpatient (REF) | payer OTHER, SELFPAY ==
--- NOTE | 2023-03-20 09:13 | EMG_ITS ---
Bilateral median and ulnar motor and sensory studies were performed. Bilateral radial sensory studies were performed and paraspinal muscles were tested with a needle. IMPRESSION: 1. Dmga-zk-cnumosma bilateral median neuropathy across carpal tunnel. 2. 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 MD PALMA Azevedo/[place] / [id number]
== END 2023-03-20 09:12 | disposition home or self-care (01) ==
LOC: HO.NEURO 09:11
PROVIDERS: PCP Internal Medicine; Visit Provider Internal Medicine
DX: R20.2 Paresthesia of skin (principal); R29.898 Other symptoms and signs involving the musculoskeletal system
CPT/HCPCS: 95886; 95911

== ENCOUNTER 2023-03-26 08:22 | Outpatient (AMB) | payer OTHER, SELFPAY ==
--- NOTE | 2023-03-26 09:54 | MHC.PC.OV ---
Intake Visit Reasons: Discuss nerve conduction~ Allergies amoxicillin [AMOXICILLIN] Allergy (Unknown, Verified 03/26/23 09:55) RASH Medication List - Last Reconciled 03/26/23 by Ana Flores MD ascorbic acid (vitamin C) (Vitamin C) 500 mg PO DAILY biotin 10,000 mg PO DAILY cholecalciferol (vitamin D3) (Vitamin D3) 25 mcg PO DAILY ferrous sulfate 324 mg PO ONCE 90 days scopolamine base 1 patch transdermal Q3D PRN simvastatin 20 mg PO DAILY 90 days Tobacco use date assessed: 03/26/23 Dental Screening Dental Screen Date: 03/26/23 Did you have a dental visit in the last 12 months?: Yes Did you have a dental problem in the last 6 months where you did not have access to dental care?: No Was dental information given to patient?: Patient has dentist HPI Discuss nerve conduction~ HPI Details Patient is a 52-year-old female this is a telemedicine video conference to go over EMG nerve conduction study Patient has been wearing splints at night, continued to have tingling sensation in her hands along with some discomfort EMG study showed 1. Nejj-vo-dflxabya bilateral median neuropathy across carpal tunnel. 2. 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 I have placed a referral for her to see a hand specialist to discuss her options Patient does not want to have surgery at this time [facility] Medical History Urinary tract infection Family History Other No family history of cancer Social History Household Members: Spouse Housing: House Are you a primary youth care specialist to a significant other at home: No Do you presently have visiting nurse or other home services: No Patient Tobacco Use Status: Never used Tobacco e-Cigarette/Vaping Use: Never Used service: No Current occupational status: employed Cognitive needs: No Hearing needs: No Vision needs: No Questionnaire Thrive Questionnaire Date Thrive assessed: 03/07/23 AUDIT C Alcohol Use Questionnaire (AUDIT-C) 1. How often do you have a drink containing alcohol?: Never 3. How often do you have six or more drinks on one occasion?: Never Total Score: 0 Score Reviewed/Action Taken: Yes LANNY-7 AMB Questionnaire LANNY-7 Date LANNY - 7 assessed: 03/07/23 Source: Developed by Drs. Cesar Santamaria, Mali Champion, Cal Lomeli and colleagues, with an educational leola from [employer]. Review of Systems Const Denies chills and Denies fever(s) ENT Denies epistaxis and Denies nasal discharge Card Denies chest pain Resp Denies chest congestion, Denies cough and Denies hemoptysis GI Denies diarrhea and Denies nausea Skin/Breast Denies rash Neuro Reports no additional complaints Psych Reports no additional complaints Endo Reports no additional complaints Physical exam (Primary Care) Tobacco/Smoking Status: Tobacco use Status Tobacco use date assessed 03/26/23 03/26/23 09:55 Patient Tobacco Use Status Never used Tobacco 03/26/23 09:55 e-Cigarette/Vaping Use Never Used 03/26/23 09:55 Thrive Assessment: Date of Thrive Assessment Date Thrive assessed 03/07/23 03/26/23 09:55 Telehealth Telehealth Location of provider rendering services: practice address Location of patient: address on file Patient Identification confirmed using: Name, : Yes Telehealth method: video Patient verbally consented to treatment: Yes Patient verbally consented to billing insurance company: Yes Patient informed of any privacy concerns related to visit: Yes Assessment and Plan Assessment & Plan (1) Paresthesia of both hands: Code(s): R20.2 - Paresthesia of skin (2) Weakness of both hands: Code(s): R29.898 - Other symptoms and signs involving the musculoskeletal system Plan Patient is a 52-year-old female this is a telemedicine video conference to go over EMG nerve conduction study Patient has been wearing splints at night, continued to have tingling sensation in her hands along with some discomfort EMG study showed 1. Oubu-xm-ojrddwib bilateral median neuropathy across carpal tunnel. 2. 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 I have placed a referral for her to see a hand specialist to discuss her options Patient does not want to have surgery at this time Orders: Referrals Hand Surgery Referral R20.2 - Paresthesia of skin, R29.898 - Other symptoms and signs involving the musculoskeletal system Coding Level of Care Code Tele Est Pt Level 3 (42329) Diagnoses Paresthesia of both hands R20.2 Weakness of both hands R29.898
== END 2023-03-26 13:06 | disposition home or self-care (01) ==
LOC: HO.HMGC 08:22
PROVIDERS: PCP Internal Medicine; Visit Provider Internal Medicine
DX: R20.2 Paresthesia of skin (principal); R29.898 Other symptoms and signs involving the musculoskeletal system
CPT/HCPCS: 99213

== ENCOUNTER 2023-08-29 08:33 | Outpatient (AMB) | payer OTHER, SELFPAY ==
[2023-08-29 08:44] VITALS: BP 126/88; PULSE 84; O2SAT 93; BMI 23.3
--- NOTE | 2023-08-29 08:44 | MHC.PC.OV ---
Vital Signs 08/29/23 08:44 Height 5 ft 2 in Weight 127 lb 6 oz BMI 23.3 BP 126/88 Blood Pressure Location Lt brachial Position Sitting Pulse 84 Pulse Source Pulse Oximeter Pulse Oximetry (%) 93 Oxygen Delivery Method Room Air Intake Visit Reasons: Dizziness Allergies amoxicillin [AMOXICILLIN] Allergy (Unknown, Verified 08/29/23 08:46) RASH Medication List - Last Reconciled 08/29/23 by Ana Flores MD ascorbic acid (vitamin C) (Vitamin C) 500 mg PO DAILY biotin 10,000 mg PO DAILY cholecalciferol (vitamin D3) (Vitamin D3) 25 mcg PO DAILY ferrous sulfate 324 mg PO ONCE 90 days scopolamine base 1 patch transdermal Q3D PRN simvastatin 20 mg PO DAILY 90 days Tobacco use date assessed: 08/29/23 Dental Screening Dental Screen Date: 08/29/23 Did you have a dental visit in the last 12 months?: Yes Did you have a dental problem in the last 6 months where you did not have access to dental care?: No Was dental information given to patient?: Patient has dentist HPI Dizziness HPI Details Patient is a 53-year-old female came in today to be evaluated for dizziness Patient says that for the past few days she has been feeling dizzy every time she looks down or lay down She said that her mother had a severe case of vertigo She tried cleaning her ears which did helped However last night she felt really dizzy so came in On examination she does not have any ear infection Vertigo test is positive Patient also have a history of elevated LFT and anemia Last time she had labs was February of this year She has an appointment coming up in few days for her regular follow-up Meanwhile I have ordered labs She is to start meclizine 25 mg up to 3 times a day 8 hours apart Explained to patient that it is important that she hydrate herself due to summer heat Avoid outdoor activities, and move slow [facility] Medical History Urinary tract infection Family History Other No family history of cancer Social History Household Members: Spouse Housing: House Are you a primary customer care manager to a significant other at home: No Do you presently have visiting nurse or other home services: No Patient Tobacco Use Status: Never used Tobacco e-Cigarette/Vaping Use: Never Used service: No Current occupational status: employed Cognitive needs: No Hearing needs: No Vision needs: No Questionnaire Thrive Questionnaire Date Thrive assessed: 03/07/23 AUDIT C Alcohol Use Questionnaire (AUDIT-C) 1. How often do you have a drink containing alcohol?: Never 3. How often do you have six or more drinks on one occasion?: Never Total Score: 0 Score Reviewed/Action Taken: Yes LANNY-7 AMB Questionnaire LANNY-7 Date LANNY - 7 assessed: 03/07/23 Source: Developed by Drs. Cesar Santamaria, Mali Champion, Cal Lomeli and colleagues, with an educational leola from [employer]. Review of Systems Const Denies chills and Denies fever(s) ENT Denies epistaxis and Denies nasal discharge Card Denies chest pain Resp Denies chest congestion, Denies cough and Denies hemoptysis GI Denies diarrhea and Denies nausea Skin/Breast Denies rash Neuro Reports no additional complaints Psych Reports no additional complaints Endo Reports no additional complaints Physical exam (Primary Care) Vital Signs: Last Vital Signs Pulse 84 08/29/23 08:44 BP 126/88 08/29/23 08:44 Pulse Ox 93 08/29/23 08:44 Oxygen Delivery Method Room Air 08/29/23 08:44 BMI result Body Mass Index 23.3 Tobacco/Smoking Status: Tobacco use Status Tobacco use date assessed 08/29/23 08/29/23 08:47 Patient Tobacco Use Status Never used Tobacco 08/29/23 08:47 e-Cigarette/Vaping Use Never Used 08/29/23 08:47 Thrive Assessment: Date of Thrive Assessment Date Thrive assessed 03/07/23 08/29/23 08:47 Const General: cooperative, comfortable and no acute distress Orientation/consciousness: patient oriented x3 HENMT Head: Yes normocephalic Eyes General: appearance normal, both eyes and all related structures Neck Neck: Yes supple Resp Effort & Inspection: normal respiratory effort, no cough and no stridor Cardio Rhythm: regular rhythm Heart sounds: S1 normal heart sound present and S2 normal heart sound present Skin General skin exam: turgor normal Neuro Other: Vertigo test positive General: patient oriented x3, tone normal and moves all extremities Extrem Right lower extremity: no edema Left lower extremity: no edema Assessment and Plan Assessment & Plan (1) Dizziness: Code(s): R42 - Dizziness and giddiness (2) Renal calculus, left: Code(s): N20.0 - Calculus of kidney (3) Palpitations: Code(s): R00.2 - Palpitations (4) Microcytic hypochromic anemia: Code(s): D50.9 - Iron deficiency anemia, unspecified (5) Lipid disorder: Code(s): E78.9 - Disorder of lipoprotein metabolism, unspecified Plan Patient is a 53-year-old female came in today to be evaluated for dizziness Patient says that for the past few days she has been feeling dizzy every time she looks down or lay down She said that her mother had a severe case of vertigo She tried cleaning her ears which did helped However last night she felt really dizzy so came in On examination she does not have any ear infection Vertigo test is positive Patient also have a history of elevated LFT and anemia Last time she had labs was February of this year She has an appointment coming up in few days for her regular follow-up Meanwhile I have ordered labs She is to start meclizine 25 mg up to 3 times a day 8 hours apart Explained to patient that it is important that she hydrate herself due to summer heat Avoid outdoor activities, and move slow Orders: Orders Complete Blood Count Auto Diff Today D50.9 - Iron deficiency anemia, unspecified, E78.9 - Disorder of lipoprotein metabolism, unspecified, N20.0 - Calculus of kidney, R00.2 - Palpitations, R42 - Dizziness and giddiness Ferritin Today D50.9 - Iron deficiency anemia, unspecified, E78.9 - Disorder of lipoprotein metabolism, unspecified, N20.0 - Calculus of kidney, R00.2 - Palpitations, R42 - Dizziness and giddiness Comprehensive [place]. Panel Fast Today D50.9 - Iron deficiency anemia, unspecified, E78.9 - Disorder of lipoprotein metabolism, unspecified, N20.0 - Calculus of kidney, R00.2 - Palpitations, R42 - Dizziness and giddiness Lipase Today D50.9 - Iron deficiency anemia, unspecified, E78.9 - Disorder of lipoprotein metabolism, unspecified, N20.0 - Calculus of kidney, R00.2 - Palpitations, R42 - Dizziness and giddiness Vitamin D 25-OH (D2 and D3) Today D50.9 - Iron deficiency anemia, unspecified, E78.9 - Disorder of lipoprotein metabolism, unspecified, N20.0 - Calculus of kidney, R00.2 - Palpitations, R42 - Dizziness and giddiness Vitamin B12 Today D50.9 - Iron deficiency anemia, unspecified, E78.9 - Disorder of lipoprotein metabolism, unspecified, N20.0 - Calculus of kidney, R00.2 - Palpitations, R42 - Dizziness and giddiness TSH reflex Free T4 Today D50.9 - Iron deficiency anemia, unspecified, E78.9 - Disorder of lipoprotein metabolism, unspecified, N20.0 - Calculus of kidney, R00.2 - Palpitations, R42 - Dizziness and giddiness Medications: New meclizine 25 mg PO TID 30 tabs 0RF Dizziness 10 days Coding Level of Care Code Est Pt Level 4 (97243) Diagnoses Dizziness R42 Renal calculus, left N20.0 Palpitations R00.2 Microcytic hypochromic anemia D50.9 Lipid disorder E78.9
== END 2023-08-29 09:07 | disposition home or self-care (01) ==
LOC: HO.HMGC 08:33
PROVIDERS: PCP Internal Medicine; Visit Provider Internal Medicine
DX: R42 Dizziness and giddiness (principal); N20.0 Calculus of kidney; R00.2 Palpitations; D50.9 Iron deficiency anemia, unspecified; E78.9 Disorder of lipoprotein metabolism, unspecified
CPT/HCPCS: 99214

== ENCOUNTER 2023-09-02 07:53 | Outpatient (REF) | payer OTHER, SELFPAY ==
[2023-09-02 10:12] LABS: MANUAL DIFF FLAG NO
[2023-09-02 10:26] LABS: Basophils Absolute Auto 0.1 X10*3/uL (0.0-0.2); Basophils Percent Auto 0.7 % (0-2); Eosinophils Absolute Auto 0.2 X10*3/uL (0.0-0.4); Eosinophils Percent Auto 2.7 % (0-4); Hematocrit 42.2 % (37.0-47.0); Hemoglobin 14.1 g/dl (12.0-16.0); Imm Gran Abs Auto 0.02 X10*3/uL (0.00-0.03); Imm Gran Pct Auto 0.2 % (0.0-0.4); Lymphocytes Absolute Auto 3.4 X10*3/uL (1.2-4.9); Lymphocytes Percent Auto 41.1 % (20-40); Mean Corpuscular HGB Conc 33.4 g/dl (31.0-35.0); Mean Corpuscular Hemoglobin 29.1 pg (27.0-33.0); Mean Platelet Volume 10.4 fL (9.4-12.3); Monocytes Absolute Auto 0.8 X10*3/uL (0.1-1.2); Monocytes Percent Auto 9.6 % (2-11); Neutrophils Absolute Auto 3.7 x10*3/uL (2.0-8.3); Neutrophils Percent Auto 45.7 % (45-73); Platelet Count 313 X10*3/uL (160-400); Red Blood Count 4.85 X10*6/uL (4.20-5.50); White Blood Count 8.2 X10*3/uL (4.8-10.8)
[2023-09-02 10:54] LABS: Alanine Aminotransferase 13 U/L (0-31); Albumin Level 4.3 g/dL (3.5-5.0); Alkaline Phosphatase 78 U/L (39-117); Anion Gap 14 (12-20); Aspartate Amino Transferase 34 U/L (5-31); Blood Urea Nitrogen 10 mg/dL (9-16); Calcium 9.6 mg/dL (8.4-10.2); Carbon Dioxide 24 mmol/L (22-29); Chloride 108 mmol/L (96-108); Cholesterol 227 mg/dL (<200); Estimated Glomerular Filt Rate > 60; Glucose Fasting 81 mg/dL (60-99); HDL Cholesterol 56 mg/dL (>40); LDL Cholesterol Calculated 144 mg/dL (<100); Lipase 32 U/L (8-78); Sodium 142 mmol/L (135-145); Total Protein 6.8 g/dL (6.5-8.0); Triglycerides 139 mg/dL (<150)
[2023-09-02 11:04] LABS: Vitamin B12 525 pg/mL (200-900)
[2023-09-02 11:15] LABS: Ferritin 111 ng/mL (10-250); TSH reflex Free T4 2.37 uIU/mL (0.32-4.0)
[2023-09-02 11:37] LABS: Bilirubin Total 0.8 mg/dL (0.0-1.0)
[2023-09-07 15:28] LABS: Vitamin D 25-OH, D2 <4 ng/mL; Vitamin D 25-OH, D3 40 ng/mL; Vitamin D 25-OH, Total 40 ng/mL (30-100)
== END 2023-09-02 07:54 | disposition home or self-care (01) ==
LOC: HO.HMGCLDS 07:53
PROVIDERS: PCP Internal Medicine; Visit Provider Internal Medicine
DX: E78.9 Disorder of lipoprotein metabolism, unspecified (principal); R42 Dizziness and giddiness; N20.0 Calculus of kidney; R00.2 Palpitations; D50.9 Iron deficiency anemia, unspecified
CPT/HCPCS: 36415; 80053; 80061; 82306; 82607; 82728; 83690; 84443; 85025

== ENCOUNTER 2023-09-05 07:48 | Outpatient (AMB) | payer OTHER, SELFPAY ==
[2023-09-05 07:49] VITALS: BP 122/84; PULSE 85; O2SAT 99; BMI 23.3
--- NOTE | 2023-09-05 07:49 | A.OFFPC_ITS ---
Vital Signs 09/05/23 07:49 Height 5 ft 2 in Weight 127 lb 8 oz BMI 23.3 BP 122/84 Blood Pressure Location Lt brachial Position Sitting Pulse 85 Pulse Source Pulse Oximeter Pulse Oximetry (%) 99 Oxygen Delivery Method Room Air Intake Visit Reasons: Annual PE Allergies amoxicillin [AMOXICILLIN] Allergy (Unknown, Verified 09/05/23 07:51) RASH Medication List - Last Reconciled 09/05/23 by Ana Flores MD ascorbic acid (vitamin C) (Vitamin C) 500 mg PO DAILY biotin 10,000 mg PO DAILY cholecalciferol (vitamin D3) (Vitamin D3) 25 mcg PO DAILY ferrous sulfate 324 mg PO ONCE 90 days meclizine 25 mg PO TID 10 days scopolamine base 1 patch transdermal Q3D PRN simvastatin 20 mg PO DAILY 90 days Tobacco use date assessed: 09/05/23 Dental Screening Dental Screen Date: 09/05/23 Did you have a dental visit in the last 12 months?: Yes Did you have a dental problem in the last 6 months where you did not have access to dental care?: No Was dental information given to patient?: Patient has dentist HPI Annual PE HPI Details Patient is 53-year-old female came in today for physical exam Few days ago she was seen for dizziness I prescribed meclizine, patient is feeling better She says that she only took medication for 3 days and then she stopped Labs done recently reviewed with the patient she is taking iron daily, her hemoglobin is normal, patient was instructed to cut down iron intake to only once a week She is going through menopause and is complaining of hot flashes She will be seeing a new OBGYN in [place], patient will be booking appointment in October She is due for mammogram order placed She had a Cologuard test done last year which was negative I am referring her to ENT because of tinnitus she has in both ears She has developed rash under arms, patient was notified to stop shaving and use cream instead I have sent Lotrisone cream for her she may use that at night until rash is better Labs are needed before next visit in 6 months Physical exam 1 year [facility] Medical History Urinary tract infection Family History Other No family history of cancer Social History Household Members: Spouse Housing: House Are you a primary career guidance counselor to a significant other at home: No Do you presently have visiting nurse or other home services: No Patient Tobacco Use Status: Never used Tobacco e-Cigarette/Vaping Use: Never Used service: No Current occupational status: employed Cognitive needs: No Hearing needs: No Vision needs: No Questionnaire PHQ-9 Over the last 2 weeks, how often have you been bothered by any of the following problems? 1. Little interest or pleasure in doing things: not at all 2. Feeling down, depressed, or hopeless: not at all 3. Trouble falling or staying asleep, or sleeping too much: several days 4. Feeling tired or having little energy: several days 5. Poor appetite or overeating: not at all 6. Feeling bad about yourself - or that you are a failure or have let yourself or your family down: not at all 7. Trouble concentrating on things, such as reading the newspaper or watching television: not at all 8. Moving or speaking so slowly that other people could have noticed. Or the opposite - being so fidgety or restless that you have been moving around a lot more than usual: not at all 9. Thoughts that you would be better off or of hurting yourself in some way: not at all Total score: 2 Depression Screening Interpretation: Negative Depression Screening Done: Yes 08582 - PHQ-9 Billing: Yes Source: Developed by Drs. Cesar Santamaria, Mali Champion, Cal Lomeli and colleagues, with an educational leola from [employer]. Thrive Questionnaire Date Thrive assessed: 03/07/23 I am a: Patient What is your living situation today?: I have a steady place to live Within the past 12 months, did the food you bought not last and you didn't have the money to get more?: Never true Within the past 12 months, did you worry whether your food would run out before you got money to buy more?: Never true Do you have trouble paying for medicines?: No Do you have trouble getting transportation to medical appointments?: No Do you have trouble paying your heating and electricity bill?: No Do you have trouble taking care of your child, family member or friend?: No Do you have trouble with day-to-day activities such as bathing, preparing meals, shopping, managing finances, etc.?: No Are you currently unemployed and looking for a job?: No Are you interested in more education?: No Please select the resources that you would like help with: Housing/Long Term Currently or been in a relationship where the following occur: No concerns reported THRIVE Score: 0 AUDIT C Alcohol Use Questionnaire (AUDIT-C) 1. How often do you have a drink containing alcohol?: Never 3. How often do you have six or more drinks on one occasion?: Never Total Score: 0 Score Reviewed/Action Taken: Yes LANNY-7 AMB Questionnaire LANNY-7 Date LANNY - 7 assessed: 03/07/23 Feeling nervous, anxious, or on edge: 0 = Not at all Not being able to stop or control worryin = Several days Worrying too much about different things: 1 = Several days Trouble relaxin = Not at all Being so restless that it is hard to sit still: 0 = Not at all Becoming easily annoyed or irritable: 0 = Not at all Feeling afraid as if something awful might happen: 0 = Not at all Total LANNY-7 score (0-4 normal; 5-9 mild; 10-14 moderate; 15-21 severe): 2 Source: Developed by Drs. Cesar Santamaria, Mali Champion, Cal Lomeli and colleagues, with an educational leola from [employer]. Review of Systems Const Denies chills, Denies fever(s) and Denies headache(s) Eyes Denies blurry vision ENT Denies headache(s), Denies nasal discharge, Denies nasal obstruction, Denies odynophagia and Denies sinus pain Card Denies chest pain at rest and Denies chest pain with activity Resp Denies cough and Denies hemoptysis GI Denies diarrhea, Denies odynophagia, Denies vomiting and Denies hematemesis Reports as per HPI Musc Denies abnormal gait Skin/Breast Reports as per HPI Neuro Denies Neuro-related abnormal movements, Denies Abnormal speech present, Denies abnormal gait, Denies headache(s) and Denies Sensory deficit (Neuro) Psych Denies mood swings and Denies paranoia Endo Reports as per HPI Gera/Lymph Reports as per HPI Aller/Immun Reports as per HPI Physical exam (Primary Care) Vital Signs: Last Vital Signs Pulse 85 09/05/23 07:49 BP 122/84 09/05/23 07:49 Pulse Ox 99 09/05/23 07:49 Oxygen Delivery Method Room Air 09/05/23 07:49 BMI result Body Mass Index 23.3 Tobacco/Smoking Status: Tobacco use Status Tobacco use date assessed 09/05/23 09/05/23 07:52 Patient Tobacco Use Status Never used Tobacco 09/05/23 07:52 e-Cigarette/Vaping Use Never Used 09/05/23 07:52 PHQ-9: PHQ-9 Score PHQ-9: Total score 2 09/05/23 10:54 Depression Screening Interpretation: Negative Thrive Assessment: Date of Thrive Assessment Date Thrive assessed 03/07/23 09/05/23 07:52 Currently or been in a relationship where the following occur: No concerns reported Const General: cooperative, comfortable and no acute distress Orientation/consciousness: patient oriented x3 HENMT Head: Yes normocephalic and Yes atraumatic Eyes General: appearance normal, both eyes and all related structures Pupils: Equal, round and reactive pupils present EOM: EOMs intact bilaterally Neck Neck: Yes supple and No lymphadenopathy Thyroid: Thyroid normal Lymphatic: no lymphadenopathy noted Resp Effort & Inspection: normal respiratory effort and able to speak in complete sentences Auscultation: clear to auscultation bilaterally Cardio Heart sounds: S1 normal heart sound present and S2 normal heart sound present GI Palpation (GI): Soft to palpation and nontender Auscultation: normal bowel sounds General: Yes no CVA tenderness Back/Spine/Pelvis Back: no CVA tenderness Skin Other: Mild erythematous rash right axilla General skin exam: elasticity normal and turgor normal Neuro General: patient oriented x3 and gait normal Cranial nerves: Yes Equal, round and reactive pupils present Speech: No Abnormal speech present Sensory Exam: No Sensory deficit (Neuro) Coordination: tandem gait normal and Romberg test negative Extrem General: Yes normal exam except as noted and No edema Assessment and Plan Assessment & Plan (1) Encounter for general adult medical examination with abnormal findings: Code(s): Z00.01 - Encounter for general adult medical examination with abnormal findings (2) Tinnitus, bilateral: Code(s): H93.13 - Tinnitus, bilateral (3) Dizziness: Code(s): R42 - Dizziness and giddiness (4) Rash: Code(s): R21 - Rash and other nonspecific skin eruption Plan Patient is 53-year-old female came in today for physical exam Few days ago she was seen for dizziness I prescribed meclizine, patient is feeling better She says that she only took medication for 3 days and then she stopped Labs done recently reviewed with the patient she is taking iron daily, her hemoglobin is normal, patient was instructed to cut down iron intake to only once a week She is going through menopause and is complaining of hot flashes She will be seeing a new OBGYN in [place], patient will be booking appointment in October She is due for mammogram order placed She had a Cologuard test done last year which was negative I am referring her to ENT because of tinnitus she has in both ears She has developed rash under arms, patient was notified to stop shaving and use cream instead I have sent Lotrisone cream for her she may use that at night until rash is better Labs are needed before next visit in 6 months Physical exam 1 year Orders: Orders Complete Blood Count Auto Diff 5 Months H93.13 - Tinnitus, bilateral, R42 - Dizziness and giddiness, Z00.01 - Encounter for general adult medical examination with abnormal findings MM tomosynthesis screening BI Today Z12.31 - Encounter for screening mammogram for malignant neoplasm of breast Comprehensive [place]. Panel Fast 5 Months H93.13 - Tinnitus, bilateral, R42 - Dizziness and giddiness, Z00.01 - Encounter for general adult medical examination with abnormal findings Lipid Panel 5 Months H93.13 - Tinnitus, bilateral, R42 - Dizziness and giddiness, Z00.01 - Encounter for general adult medical examination with abnormal findings Referrals Ear/Nose/Throat Referral H93.13 - Tinnitus, bilateral Medications: New clotrimazole-betamethasone 1-0.05 % 1 appl topical ONCE 30 days 45 grams 0RF Coding Level of Care Code Est Pt Level 3 (68259) Est Pt Prev Care 40-64y(43651) Diagnoses Encounter for general adult medical examination with abnormal findings Z00.01 Tinnitus, bilateral H93.13 Dizziness R42 Rash R21
== END 2023-09-05 08:25 | disposition home or self-care (01) ==
PROVIDERS: PCP Internal Medicine; Visit Provider Internal Medicine
DX: Z00.00 Encounter for general adult medical examination without abnormal findings (principal); H93.13 Tinnitus, bilateral; R42 Dizziness and giddiness; R21 Rash and other nonspecific skin eruption
CPT/HCPCS: 99213; 99396

== ENCOUNTER 2023-10-27 08:08 | Outpatient (AMB) | payer OTHER, SELFPAY ==
--- OUTSIDE RECORDS SUMMARY | 2023-10-27 08:10 | XMS_ITS | Continuity of Care Document ---
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 Name Role Phone Mark BROWN, Asma Primary Care Physician Encounter [facility] Date(s): 11/29/20 - 11/30/[address] [address]- Encounter Diagnosis COVID-19(Final) - 11/30/20 Discharge Disposition: A-D/C Home Attending Physician: Celina Tran MD Admitting Physician: Celina Tran MD Referring Physician: Not on Staff, Referring MD Allergies, Adverse Reactions, Alerts Substance Reaction Severity Status amoxicillin Active Immunizations Given and Recorded Vaccine Date Status Refusal Reason influenza virus vaccine, inactivated 11/30/15 Give n influenza virus vaccine, inactivated 11/25/14 Give n influenza virus vaccine, inactivated 1 10/22/13 [facility] influenza virus vaccine, inactivated 2 02/08/13 [facility] tetanus-diphtheria toxoids (Td) 3 01/22/13 Given Fluzone Preservative-Free (oldterm) 10/29/11 Given Tetanus Toxoid Vaccine (oldterm) 02/18/00 Given 1Result Comment: [02/22/2014] [facility] 2Admin Note: given at [facility] 3Admin Note: done in ED at [facility] 01/22/13 Medications Cocup splints, bilateral Cocup splints, bilateral, See Instructions, # 1 pair, Refills 0, Tot. Refills 0, Maintenance, use at night for carpal tunnel syndrome, 02/26/16 12:04:57, Compound Start Date: 02/26/16 Status: Ordered cromolyn ophthalmic 4% solution 1 drops, Eyes, Both, 4 times a day, PRN itchy eyes, # 10 mL, 11 Refills, Maintenance, 06/28/15 13:36:39, Solution, 1 drops Eyes, Both 4 times a day,PRN:itchy eyes Start Date: 06/28/15 Status: Ordered loratadine 10 mg oral tablet 10 mg, 1, tablet, By Mouth, Daily, PRN, # 30 tablet, Refills 11, Tot. Refills 11, Maintenance, allergies, 06/28/15 13:44:20, Route to Pharmacy Electronically, [id number], [facility]/pharmacy #[id number] Start Date: 06/28/15 Status: Ordered naproxen 500 mg oral tablet 1 tablet = 500 mg, By Mouth, 2 times a day, PRN as needed for pain, # 60 tablet, 1 Refills, Maintenance, 02/26/16 12:06:55, Tablet Start Date: 02/26/16 Status: Ordered Nasacort AQ 55 mcg/inh nasal spray 1 sprays, Nares, Both, Daily, PRN Sinus Symptoms, Nasacort OTC, # 3 each, 0 Refills, Maintenance, 07/28/15 11:16:43, 1 sprays Nares, Both Daily,PRN:Sinus Symptoms,Instr:Nasacort OTC Start Date: 07/28/15 Status: Ordered Problem List Condition Effective Dates Status Health Status Inform ant 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 cough, dyspnea, nausea COMPARISON: 05/24/2014 FINDINGS: LINES AND TUBES: None. LUNGS AND PLEURA: Mild bilateral peripheral predominant hazy airspace opacities, predominately in the mid to lower lungs. No pleural effusion. No pneumothorax. HEART, MEDIASTINUM AND INDIGO: Heart is normal in size. Normal upper mediastinal and hilar contour. BONES AND SOFT TISSUES: No acute abnormality. IMPRESSION: Bilateral airspace opacities in keeping with known COVID-19 pneumonia. I have personally reviewed the images and I agree with this report. WSN: [id number] Ordering Physician: Adam Burr Dictated By: Robert Murillo DO Dictated Date/Time: 11/29/20 7:54 pm Reviewed By: Jose L Carrero MD Signed By: Jose L Carrero MD Signed Date/Time: 11/29/20 7:59 pm Transcribed By: RAPHAEL Transcribed Date/Time: 11/29/20 7:50 pm Vital Signs Most recent to oldest [Reference Range]: 1 2 3 Oxygen Saturation [94-100 %] 95 % (11/30/20 12:53 AM) 98 % (11/29/20 11:30 PM) 96 % (11/29/20 9:25 PM) Pulse Rate [55-90 bpm] 91 bpm *H* (11/29/20 11:30 PM) 112 bpm *H* (11/29/20 9:25 PM) 115 bpm *H* (11/29/20 7:07 PM) Blood Pressure [90-138/55-84 mm Hg] 122/58mm Hg (11/29/20 11:30 PM) 104/80mm Hg (11/29/20 9:25 PM) 117/55mm Hg (11/29/20 7:07 PM) Respiratory Rate [16-30 br/min] 20 br/min (11/29/20 11:30 PM) 18 br/min (11/29/20 9:25 PM) 18 br/min (11/29/20 7:07 PM) Temperature [96.8-100.4 DegF] 99.3 DegF (11/29/20 11:30 PM) 101.0 DegF *H* (11/29/20 9:25 PM) 100.5 DegF *H* (11/29/20 7:07 PM) Liters per Minute 2 L/min (11/29/20 11:30 PM) Mode of Delivery (Oxygen) Room air (11/30/20 12:53 AM) Nasal cannula (11/29/20 11:30 PM) Room air (11/29/20 7:07 PM) Blood pressure sites Arm, left (11/29/20 7:07 PM) Temperature Route Oral (11/29/20 11:30 PM) Oral (11/29/20 9:25 PM) Oral (11/29/20 7:07 PM) Social History Social History Type Response Smoking Status Never smoker entered on: 10/28/16 Sex
[2023-10-27 08:12] VITALS: BP 118/82; PULSE 92; TEMP 36.8; O2SAT 98; BMI 23.8
--- NOTE | 2023-10-27 08:12 | MHC.OFFWIV ---
Intake Vital Signs 10/27/23 08:12 Height 5 ft 2 in Weight 130 lb BMI 23.8 BP 118/82 Blood Pressure Location Lt brachial Position Sitting Pulse 92 Pulse Source Pulse Oximeter Temp 98.3 F Temp Source Oral Pulse Oximetry (%) 98 Oxygen Delivery Method Room Air Intake Visit Reasons: EP-body aches/chills/ears block Intake Note: pt c/o body aches, chills, sore throat, ears blocked, cough. Started Friday Patient Tobacco Use Status: Never used Tobacco Allergies amoxicillin [AMOXICILLIN] Allergy (Unknown, Verified 10/27/23 08:16) RASH Do you need a note to return to daycare/school/sports/work: No HPI HPI Comments History of Present Illness Details Patient presents to the walk in for 2 days of cough, sinus congestion, sore throat, bodyaches. Endorses feeling of fever yesterday but did not check Denies chest pain, shortness of breath, palpitations, syncope, weakness Denies headache, ear pain, nausea, vomiting, diarrhea PFSH Medical History Urinary tract infection Family History Other No family history of cancer Social History Household Members: Spouse Housing: House Are you a primary child care cook to a significant other at home: No Do you presently have visiting nurse or other home services: No Patient Tobacco Use Status: Never used Tobacco e-Cigarette/Vaping Use: Never Used service: No Current occupational status: employed Cognitive needs: No Hearing needs: No Vision needs: No Review of Systems Const All systems reviewed & are unremarkable except as noted in HPI and below Physical Exam Vital Signs: Last Vital Signs Temp 98.3 F 10/27/23 08:12 Pulse 92 10/27/23 08:12 BP 118/82 10/27/23 08:12 Pulse Ox 98 10/27/23 08:12 Oxygen Delivery Method Room Air 10/27/23 08:12 BMI result Body Mass Index 23.8 General: awake, alert, oriented. Answers questions appropriately. Fully engaged in examination. Skin: warm, dry, intact HEENT: TMs intact bilaterally, without erythema. Posterior pharynx without erythema or exudate. Sclera without icterus or injection. Cardiac: External chest normal in appearance. Respiratory: +cough. LSCTAB. Abdomen: without gross distension. Neurological: Oriented to person, place, time and situation. Thought process intact. Psychiatric: Appropriate mood and affect. Good judgment and insight. Results AMB Rapid Strep AMB Rapid Strep Negative Last Edit by SERGIO Dumont on 10/27/23 08:30 Results Reviewed Results Reviewed: Laboratory Last Values Strep Scn Rapid Clinic Negative 10/27/23 08:17 Assessment & Plan Assessment & Plan (1) URI (upper respiratory infection): Code(s): J06.9 - Acute upper respiratory infection, unspecified Plan URI, no abx warranted. SARS-CoV2/FLU/RSV swab collected, results pending. Patient aware she will be called with results. She is requesting antivirals if test results are positive. Benzonatate 100mg po bid as needed Rest, drink plenty of fluids, tylenol or motrin as needed. Recommend taking OTC nasal decongestants Follow up with pcp or in clinic for any new or worsening symptoms. Go to ER for shortness of breath, chest pain, palpitations, weakness, dizziness. Orders: Orders SARS-CoV2/FLU/RSV Today Lilian Luis PA-C J06.9 - Acute upper respiratory infection, unspecified AMB Rapid Strep Screen Today Lilian Luis PA-C Z13.9 - Encounter for screening, unspecified Medications: New benzonatate 100 mg PO BID PRN 20 caps 0RF cough Pamella Souza, COMPRESSION MOLDING MACHINE OPERATOR, PUBLICATION MANAGER Coding Level of Care Code Est Pt Level 3 (87066) Diagnoses URI (upper respiratory infection) J06.9
== END 2023-10-27 08:48 | disposition home or self-care (01) ==
PROVIDERS: PCP Internal Medicine; Visit Provider Registered Nurse Emergency
DX: Z13.9 Encounter for screening, unspecified (principal); J06.9 Acute upper respiratory infection, unspecified
CPT/HCPCS: 87880; 99213

== ENCOUNTER 2023-10-27 08:17 | Outpatient (REF) | payer OTHER, SELFPAY ==
[2023-10-27 11:30] LABS: Influenza A PCR NEGATIVE (Negative); Influenza B PCR NEGATIVE (Negative); Resp Syncy Virus RNA Qual PCR NEGATIVE (Negative); SARS COV2 PCR INHOUSE POSITIVE (Negative)
== END 2023-10-27 08:18 | disposition home or self-care (01) ==
LOC: HO.LAB 08:17
PROVIDERS: Visit Provider Physician Assistant
DX: J06.9 Acute upper respiratory infection, unspecified (principal)
CPT/HCPCS: 0241U

== ENCOUNTER 2023-12-02 08:03 | Outpatient (AMB) | payer OTHER, SELFPAY ==
--- NOTE | 2023-12-02 08:34 | AM.OFFVISNUR ---
Intake Visit Reasons: flu shot/TDap Intake Note: Pt was here today for a nurse visit to get flu vaccine and tdap vaccine. I informed pt that she can get them within 1 week apart to avoid any reactions she stated that she is fine getting both at the same time and that she going to to have a new born grandchild this month and she needs tdap. Pt stated that her son got both vaccines this week and he is fine. Allergies amoxicillin [AMOXICILLIN] Allergy (Unknown, Verified 10/27/23 08:16) RASH Office Procedures Flu Questionnaire Does the patient have a severe egg allergy?: No Does the patient have severe life threatening allergies?: No Does the patient have a fever or illness today?: No Has the patient ever had Guillain-[place] Syndrome?: No Has the patient ever had any past reaction to a flu shot?: No Assessment & Plan Assessment & Plan Orders: Orders Influenza [id number] Immunization Today Z23 - Encounter for immunization TDaP Immunization Today Z23 - Encounter for immunization Medications: New Fluarix Triv [id number] (PF) (flu vacc [id number] 6mos up(PF)) 0.5 mL IM ONCE 0.5 mL 0RF NS Z23 - Encounter for immunization Boostrix Tdap (diphth,pertus(acell),tetanus) 0.5 mL IM ONCE 0.5 mL 0RF NS Z23 - Encounter for immunization
== END 2023-12-02 08:39 | disposition home or self-care (01) ==
PROVIDERS: PCP Internal Medicine; Visit Provider Internal Medicine
DX: Z23 Encounter for immunization (principal)

== ENCOUNTER → 2023-12-02 08:03 | Outpatient (BNVA) | payer OTHER, SELFPAY | PROVIDERS: PCP Internal Medicine; Visit Provider Internal Medicine | DX: Z23 Encounter for immunization (principal) | CPT/HCPCS: 90471; 90472; 90656; 90715 ==

== ENCOUNTER 2024-02-19 09:28 | Outpatient (AMB) | payer OTHER, SELFPAY ==
--- OUTSIDE RECORDS SUMMARY | 2024-02-19 09:30 | XMS_ITS | Continuity of Care Document ---
Author Organization [facility] Address [address] [place] [address]- Care Team Providers Care Edge Trimmer Name Role Phone Not on Staff, PCP Primary Care Physician Unavail able [place] [facility] [place] - 01/22/[address] [address]- Attending Physician: Suyapa Mcadams MD Admitting Physician: Suyapa Mcadams MD Referring Physician: Suyapa Mcadams MD Encounter Type: Pre-OutPatient One Time Allergies, Adverse Reactions, Alerts Substance Criticality Severity Reaction Reaction Severity Status amoxicillin Active Immunizations Given [...] Vaccine (oldterm) 02/18/00 Given 1Result Comment: [02/22/2014] [facility] 2Admin Note: given at [facility] 3Admin Note: done in ED at [facility] 01/22/13 Medications Cocup splints, bilateral Cocup splints, bilateral, See Instructions, # 1 pair, Refills 0, Tot. Refills 0, Maintenance, use at night for carpal tunnel syndrome, 02/26/16 12:04:57 PM EST, Compound Start Date: 02/26/16 Status: Ordered Quantity: 1.0 Unit: pair Repeat number: 1 cromolyn ophthalmic 4% solution 1 drops, Eyes, Both, 4 times a day, PRN itchy eyes, # 10 mL, 11 Refills, Maintenance, 06/28/15 1:36:39 PM EDT, Solution, [facility]/pharmacy #[id number], 1 drops Eyes, Both 4 times a day,PRN:itchy eyes Start Date: 06/28/15 Status: Ordered Quantity: 10.0 Unit: mL Repeat number: 12 loratadine 10 mg oral tablet 10 mg, 1, tablet, By Mouth, Daily, PRN, # 30 tablet, Refills 11, Tot. Refills 11, Maintenance, allergies, 06/28/15 1:44:20 PM EDT, Route to Pharmacy Electronically, [facility]/pharmacy #0693 Start Date: 06/28/15 Status: Ordered Quantity: 30.0 Unit: tablet Repeat number: 12 naproxen 500 mg oral tablet 1 tablet = 500 mg, By Mouth, 2 times a day, PRN as needed for pain, # 60 tablet, 1 Refills, Maintenance, 02/26/16 12:06:55 PM EST, Tablet, [facility]/pharmacy #0693 Start Date: 02/26/16 Status: Ordered Quantity: 60.0 Unit: tablet Repeat number: 2 Nasacort AQ 55 mcg/inh nasal spray 1 sprays, Nares, Both, Daily, PRN Sinus Symptoms, Nasacort OTC, # 3 each, 0 Refills, Maintenance, 07/28/15 11:16:43 AM EDT, [facility]/pharmacy #0693, 1 sprays Nares, Both Daily,PRN:Sinus Symptoms,Instr:Nasacort OTC Start Date: 07/28/15 Status: Ordered Quantity: 3.0 Unit: each Repeat number: 1 Problem List Condition Confirmation Course Effective Dates Status Health Status Informant Arthropathy of cervical facet joint Confirmed Active Bunion Confirmed Active Hypercholesterolemia Confirmed Active Impacted cerumen of both ears Confirmed Active Depression, major Confirmed Active Seasonal allergic rhinitis Confirmed Active Social History Social History Type Response Smoking Status Never smoker entered on: 10/28/16 Sex Sex Representation Female (finding) Patient Care team information Care Team Personnel Name: Not on Staff, PCP Position: S Physician (General Medicine) Member Role: PCP Care Team Related Persons Name: ALEXUS PEREZIY Insurance Providers Guarantor name: ROSALBA Health Plan Information #: 3 Payer: [facility] [employer] Member Number: [id number] Policy Number: NA Group Number: ROSALBA Health Plan Information #: 5 Payer: [facility] Member Number: [id number] Policy Number: ROSALBA Group Number: ROSALBA Health Plan Information #: 1 Payer: [employer] Member Number: [id number] Policy Number: ROSALBA Group Number: ROSALBA Health Plan Information #: 4 Payer: [employer] Member Number: [id number] Policy Number: ROSALBA Group Number: ROSALBA Health Plan Information #: 2 Payer: [employer] Member Number: [id number] Policy Number: ROSALBA Group Number: NA
--- OUTSIDE RECORDS SUMMARY | 2024-02-19 09:30 | XMS_ITS | Continuity of Care Document ---
Author Organization [facility] Address [address] [place] [address]- Care Team Providers Care Field Trainer Name Role Phone Not on Staff, PCP Primary Care Physician Unavail able [place] [facility] [place]/23/23 - 01/22/[address] [address]- Attending Physician: Dylan Guevara Admitting Physician: AdmtrDylan Referring Physician: AdmtrDylan Encounter Type: Triage Allergies, Adverse Reactions, Alerts Substance Criticality Severity [...] Vaccine (oldterm) 02/18/00 Given 1Result Comment: [02/22/2014] [facility] 2Admin Note: given at [facility] 3Admin Note: done in ED at [facility] 01/22/13 Medications Cocup splints, bilateral Cocup splints, [...] Refills, Maintenance, 06/28/15 1:36:39 PM EDT, Solution, [facility]/pharmacy #0693, 1 drops Eyes, Both 4 times a day,PRN:itchy eyes Start Date: 06/28/15 Status: Ordered Quantity: 10.0 Unit: mL Repeat number: 12 loratadine 10 mg oral tablet 10 mg, 1, tablet, By Mouth, Daily, PRN, # 30 tablet, Refills 11, Tot. Refills 11, Maintenance, allergies, 06/28/15 1:44:20 PM EDT, Route to Pharmacy Electronically, [facility]/pharmacy #0693 Start Date: 06/28/15 Status: Ordered Quantity: 30.0 Unit: tablet Repeat number: 12 naproxen 500 mg oral tablet 1 tablet = 500 mg, By Mouth, 2 times a day, PRN as needed for pain, # 60 tablet, 1 Refills, Maintenance, 02/26/16 12:06:55 PM EST, Tablet, [facility]/pharmacy #0693 Start Date: 02/26/16 Status: Ordered Quantity: 60.0 Unit: tablet Repeat number: 2 Nasacort AQ 55 mcg/inh nasal spray 1 sprays, Nares, Both, Daily, PRN Sinus Symptoms, Nasacort OTC, # 3 each, 0 Refills, Maintenance, 07/28/15 11:16:43 AM EDT, [facility]/pharmacy #0693, 1 sprays Nares, Both Daily,PRN:Sinus Symptoms,Instr:Nasacort [...] Guarantor name: ROSALBA Health Plan Information #: 1 Payer: [employer] Member Number: [id number] Policy Number: NA Group Number: NA
--- OUTSIDE RECORDS SUMMARY | 2024-02-19 09:31 | XMS_ITS | Data Portability ---
Author Organization [facility], [address] Address [address] [place] [address] Care Team Providers Care Summer Intern Name Role Phone CASPER FAITH Primary Care Provider Assessment No assessment recorded. Plan of Treatment Reminders Order Date Submit Date Provider Last Modified By Organization Details Last Modified Time Details Appointments None recorded. Lab streptococc us group A, culture, throat 2022 023 [place] [facility] ([facility], [address] [place], [address], 3 12:06:35 rapid strep group A, throat 2022 023 [email or web address] [place], [address], 3 17:20:13 streptococc us group A, culture, throat [email or web address], [address] [place], [address], 3 13:30:07 Referral None recorded. Procedures None recorded. Surgeries None recorded. Imaging None recorded. Medication Orders azithromyci n 250 mg tablet 2022 023 [facility]/Pharmacy #0693, [address] [place], [address], 3 17:20:16 Patient TargetsNo targets recorded. Patient InstructionsNo instructions recorded. Reason for Referral None Reported. Results Created Date Observation Date Name Description Value Unit Range Abnormal Flag Note LastModifiedBy Organization Detail LastModifiedTime 03/13/1903/16/2022 BETA STREP GP A CULTU RE beta strep gp A culture NEGATI VE Refer ence Range : Negat deangelo Not Available [facility] ([facility]) [address] [facility], [place], [address], 03/16/2022 12:06:35 03/13/1903/13/2022 rapid strep group A, throa t Unknown Analyte Normal = Negati ve Not Available [address] [place], [address], 03/13/2022 16:37:24 03/13/1903/13/2022 rapid strep group A, throa t Unknown Analyte negati ve Not Available [address] [place], [address], 03/13/2022 16:37:24 Result Notes None recorded. Problems Name Problem SNOMED Code Status Onset Date Resolution Date Notes Provider Name and Address Organization Details Recorded Time Hyperlipidemia 21824400 Active 2022 [facility] 3 16:31:38 Problem Notes None recorded. Medical Equipment None Reported. Allergies Allergen ID Allergen Name Allergen Category Reaction Reaction Severity Criticality Documentation Date Start Date Code Code System Note Provider Name and Address Organization Details Recorded Time 413126 amoxicill in medicatio n Not available Not available Not available 03/13/2022 723 [facility] 3 16:31:03 Medications Name Sig Start Date Stop Date Status Note LastModified by Organization Details LastModified Time azithromycin 250 mg tablet TAKE 2 TABLETS (500 MG) BY ORAL ROUTE ONCE DAILY FOR 1 DAY THEN 1 TABLET (250 MG) BY ORAL ROUTE ONCE DAILY FOR 4 DAYS 2022 active Not Available Not Available Not Avai lable simvastatin 20 mg tablet Take 1 tablet every day by oral route. active Not Available Not Available No t Available ferrous sulfate active Not Available Not Available Not Available Vitals Date Recorded Body height Body mass index (BMI) Body weight Heart rate Oxygen saturation Oxygen saturation in Arterial blood by Pulse oximetry Respiratory rate Body temperature Systolic blood pressure Diastolic blood pressure Provider Name and Address Organization Details Last Updated DateTime 3 157.48 cm 23.8 kg/m2 57579.0 1 g 68 /min 99 % 99 % 18 /min 98.7 [degF] 130 mm[Hg] 80 mm[Hg] Kami Louie [facility] 3 16:33:16 Social History Question Answer Notes LastModified by Organizat ion Details LastModified Time Tobacco Smoking Status Never Smoker Kami valles [place] [facility] 03/13/2022 16:31:50 What Is Your Level Of Alcohol Consumption? None Information not available 03/13/2022 Do You Use Any Illicit Or Recreational Drugs? No [email or web address] Information not available 03/13/2022 Do You Or Have You Ever Used Any Other Forms Of Tobacco Or Nicotine? No Information not available 03/13/2022 Sex: Unknown Functional Status None recorded. Mental Status None recorded. Family History Nothing Reported. Medical History No medical history recorded. Gynecological HistoryNo gynecological history recorded. Obstetrics History GPAL:G 0 P 0 0 0 0 Immunizations Vaccine Type Date Status Note Provider Nam e and Address Organization Details Recorded Time COVID-19, mRNA, LNP-S, PF, 30 mcg/0.3 mL dose 2 completed Kami valles PA - [facility] 03/13/2022 16:30:51 COVID-19, mRNA, LNP-S, PF, 30 mcg/0.3 mL dose, fahad-sucrose 2 completed Kami valles PA - [facility] 03/13/2022 16:30:51 Td (adult), 5 Lf tetanus toxoid, preservative free, adsorbed 3 completed Kami valles PA - [facility] 03/13/2022 16:30:51 Influenza, split virus, quadrivalent, preservative 7 completed Kami valles PA - [facility] 03/13/2022 16:30:51 Past Encounters Encounter ID Performer Location Encounter Start Date Encounter Closed Date Diagnosis/Indication Diagnosis SNOMED-CT Code Diagnosis ICD10 Code [id number] [address] [facility] SHRUTHI Johnson [address] 09/12/2021 08:42:07 09/12/2021 09:03:51 [id number] [address] [facility] SHRUTHI Johnson [address] 12/21/2020 08:03:16 12/21/2020 09:16:57 [id number] [address] [facility] [place] [address] 06/28/2016 15:17:18 06/28/2016 16:05:30 [id number] [place] [address] 09/13/2021 18:20:53 09/13/2021 19:38:27 [id number] [address] [facility] [place] [address] 11/29/2020 16:07:20 11/29/2020 17:06:12 [id number] [address] [facility] [place] [address] 10/14/2016 17:41:11 10/14/2016 18:07:37 [id number] FREDDY GUO [place] [address] [place] [address] 03/13/2022 15:29:06 03/13/2022 17:21:51 Sore throat 539679320 J02.9 Cervical lymphadenitis 2909463 I88.9 Health Concerns Section Related Observation LastModified by Organization Detai ls LastModified Time None Recorded Concern Status LastModified by Organization Details LastModified Time None Recorded Advance Directives Directive None Recorded Payers Encounter Date Sequence Insurance Name Policy Number Policy Marcum Covered Member ID Marcum Member ID Guarantor Name 11/29/2020 1 [facility] PLAN (MEDICAID HMO) GERMAIN Mckinney [id number] Purnima Mckinney 12/21/2020 1 [facility] PLAN (MEDICAID HMO) GERMAIN Mckinney [id number] Purnima Mckinney 09/12/2021 1 [facility] PLAN (MEDICAID HMO) GERMAIN Mckinney [id number] Purnima Mckinney 09/13/2021 1 [facility] (MEDICAID HMO) GERMAIN Mckinney [id number] Purnima Mckinney 03/13/2022 1 [facility] (MEDICAID HMO) GERMAIN Mckinney [id number] Purnima Mckinney Notes Date Note Type Note Provider Name and Address Organization Details Recorded Time 03/13/2022 text/html pt c/o right sided throat pain, fever, weakness x 3 days FREDDY GUO MD [address] [place] [address] [place], [address], [place] - [facility] 03/13/2022 17:34:02 OBGyn Episode No OBEpisode recorded.
--- NOTE | 2024-02-19 10:22 | MHC.OFFWIV ---
Intake Vital Signs 02/19/24 10:26 Weight 132 lb BP 122/80 Blood Pressure Location Rt brachial Position Sitting Pulse 70 Pulse Source Pulse Oximeter Pulse Oximetry (%) 99 Oxygen Delivery Method Room Air Intake Visit Reasons: EP-lower back pain Intake Note: Patient here for lower back pain that has been present for a few weeks but recently she bent down to get something from the floor but felt severe pain and shortly after that she began to have pain in the left leg/knee. Patient Tobacco Use Status: Never used Tobacco Allergies amoxicillin [AMOXICILLIN] Allergy (Unknown, Verified 02/19/24 10:27) RASH Do you need a note to return to daycare/school/sports/work: No HPI EP-lower back pain HPI Details This note is constructed using voice recognition software. While every effort has been made to ensure accuracy, chief unit forester errors may have been included. The patient is a 53 year old female who presents to the clinic today with left lower back pain for the past month. She notes she has been driving more often to see her son, who lives 2 hours away, and about 3-4 weeks ago developed left lower back pain. She treated this with ibuprofen typically with some relief, however about a week ago she felt and increased sharp pain in the left lower back, and later to developed some symptoms radiating down her leg into her knee. She denies any loss of control of bladder or bowel, or any specific trauma to the area. She reports the pain is still intermittent in nature, and does respond some to the ibuprofen. She has not tried any heat or ice or any topical uwwk-eni-nouxziu treatments as of yet. REPLACED BY [facility] Medical History Urinary tract infection Family History Other No family history of cancer Social History Household Members: Spouse Housing: House Are you a primary resident care aide to a significant other at home: No Do you presently have visiting nurse or other home services: No Patient Tobacco Use Status: Never used Tobacco e-Cigarette/Vaping Use: Never Used service: No Current occupational status: employed Cognitive needs: No Hearing needs: No Vision needs: No Review of Systems Const All systems reviewed & are unremarkable except as noted in HPI and below Physical Exam Vital Signs: Last Vital Signs Pulse 70 02/19/24 10:26 BP 122/80 02/19/24 10:26 Pulse Ox 99 02/19/24 10:26 Oxygen Delivery Method Room Air 02/19/24 10:26 Const General: cooperative, healthy appearing, comfortable, no acute distress and well developed Orientation/consciousness: patient oriented x3 Limitations: no limitations Resp Effort & Inspection: normal respiratory effort and able to speak in complete sentences Back/Spine/Pelvis Other: No spinal tenderness. Spine with full range of motion. Left SI joint tenderness. No left sciatic notch tenderness. Positive left SLR, negative well SLR. Strength 5/5, equal bilaterally. Distal neurovascular exam intact. Skin General skin exam: no rashes or lesions noted Neuro General: patient oriented x3 Extrem General: Yes normal to inspection Assessment & Plan Assessment & Plan (1) Sacroiliac inflammation: Code(s): M46.1 - Sacroiliitis, not elsewhere classified Plan: Muscle relaxers sent for symptomatic management of pain. Advised use of NSAIDs, heat/ice, topical dsyg-wbn-vvkfsouu for treatment management. Advised patient to follow up with PCP with worsening or failure to resolve. May benefit from physical therapy with prolonged symptoms. No indication for imaging at this time. Plan See above for full details and plan. Medications: New cyclobenzaprine 1 to 2 orally 3 times a day PRN; 10 tabs 0RF muscle spasm Coding Level of Care Code Est Pt Level 3 (74630) Diagnoses Sacroiliac inflammation M46.1
[2024-02-19 10:26] VITALS: BP 122/80; PULSE 70; O2SAT 99
== END 2024-02-19 10:51 | disposition home or self-care (01) ==
PROVIDERS: PCP Internal Medicine; Visit Provider Registered Nurse
DX: M46.1 Sacroiliitis, not elsewhere classified (principal)

== ENCOUNTER → 2024-02-19 09:28 | Outpatient (BNVA) | payer OTHER, SELFPAY | PROVIDERS: PCP Internal Medicine; Visit Provider Registered Nurse | DX: M46.1 Sacroiliitis, not elsewhere classified (principal) | CPT/HCPCS: 99212 ==

== ENCOUNTER 2024-02-27 07:55 | Outpatient (AMB) | payer OTHER, SELFPAY ==
--- OUTSIDE RECORDS SUMMARY | 2024-02-27 07:57 | XMS_ITS | Data Portability ---
Author Organization [facility], [address] Address [address] [place] [address] Care Team Providers Care Crane Helper Name Role Phone CASPER FAITH Primary Care Provider Assessment No assessment recorded. Plan of Treatment Reminders Order Date Submit Date Provider Last Modified By Organization Details Last Modified Time Details Appointments None recorded. Lab streptococc us group A, culture, throat 2022 023 [place] [facility] ([facility], [address] [place], [address], 3 12:06:35 rapid strep group A, throat 2022 023 [email or web address] [place], [address], 3 17:20:13 streptococc us group A, culture, throat [email or web address], [address] [place], [address], 3 13:30:07 Referral None recorded. Procedures None recorded. Surgeries None recorded. Imaging None recorded. Medication Orders azithromyci n 250 mg tablet 2022 023 [facility]/Pharmacy #0693, [address] [place], [address], 3 17:20:16 Patient TargetsNo targets recorded. Patient InstructionsNo instructions recorded. Reason for Referral None Reported. Results Created Date Observation Date Name Description Value Unit Range Abnormal Flag Note LastModifiedBy Organization Detail LastModifiedTime 03/13/1903/16/2022 BETA STREP GP A CULTU RE beta strep gp A culture NEGATI VE Refer ence Range : Negat deangelo Not Available [facility] ([facility]) [address] [facility], [place], [address], 03/16/2022 12:06:35 03/13/1903/13/2022 rapid strep group A, throa t Unknown Analyte Normal = Negati ve Not Available [address] [place], [address], 03/13/2022 16:37:24 03/13/1903/13/2022 rapid strep group A, throa t Unknown Analyte negati ve Not Available [address] [place], [address], 03/13/2022 16:37:24 Result Notes None recorded. Problems Name Problem SNOMED Code Status Onset Date Resolution Date Notes Provider Name and Address Organization Details Recorded Time Hyperlipidemia 65473228 Active 2022 [facility] 3 16:31:38 Problem Notes None recorded. Medical Equipment None Reported. Allergies Allergen ID Allergen Name Allergen Category Reaction Reaction Severity Criticality Documentation Date Start Date Code Code System Note Provider Name and Address Organization Details Recorded Time 385482 amoxicill in medicatio n Not available Not [...] Updated DateTime 3 157.48 cm 23.8 kg/m2 84853.0 1 g 68 /min 99 % 99 % 18 /min 98.7 [degF] 130 mm[Hg] 80 mm[Hg] Kami Louie [facility] 3 16:33:16 Social History Question Answer Notes LastModified by Organizat ion Details LastModified Time Tobacco Smoking Status Never Smoker Kami valles [place] [facility] 03/13/2022 16:31:50 What Is Your Level Of Alcohol Consumption? None [email or web address] Information not available 03/13/2022 Do You Use Any Illicit Or Recreational Drugs? No Information not available 03/13/2022 Do You Or Have You Ever Used Any Other Forms Of Tobacco Or Nicotine? No [email or web address] Information not available 03/13/2022 Sex: Unknown Functional [...] Diagnosis/Indication Diagnosis SNOMED-CT Code Diagnosis ICD10 Code Diagnosis Note [id number] [address] [facility] SHRUTHI Johnson [address] 09/12/2021 08:42:07 09/12/2021 09:03:51 [id number] Bandar Ni [facility] SHRUTHI Johnson [address] 12/21/2020 08:03:16 12/21/2020 09:16:57 [id number] Bandar Gresham [address] [place] [address] [place] [address] 06/28/2016 15:17:18 06/28/2016 16:05:30 [id number] [address] [place] [address] 09/13/2021 18:20:53 09/13/2021 19:38:27 [id number] Bandar Gresham [address] [facility] [place] [address] 11/29/2020 16:07:20 11/29/2020 17:06:12 [id number] Bandar Thompsonr [address] [place] [address] [place] [address] 10/14/2016 17:41:11 10/14/2016 18:07:37 [id number] FREDDY GUO MD [address] [place] [address] 03/13/2022 15:29:06 03/13/2022 17:21:51 Sore throat 401379848 J02.9 Sore throatClea r liquids for comfortFre sh Helder Root Tea-Cut up fresh helder root and boil it till fragrant. drink the liquid as a tea. Can add Honey to taste. Also For Sore Throat:Thr oat Comfort Tea (by [employer])Thro at Coat Tea ( by [employer] ) Clear broth soup: Vegetable, Chicken or Beef as tolerated. Cervical lymphadenitis 1143057 I88.9 Health Concerns Section Related Observation LastModified by Organization Detai ls LastModified Time None Recorded Concern Status LastModified by Organization Details LastModified Time None Recorded Advance Directives Directive None Recorded Payers Encounter Date Sequence Insurance Name Policy Number Policy Marcum Covered Member ID Marcum Member ID Guarantor Name 11/29/2020 1 [facility] [employer] [facility] PLAN (MEDICAID HMO) GERMAIN Mckinney [id number] Purnima Mckinney 12/21/[address] [facility] PLAN (MEDICAID HMO) GERMAIN Reillyarmin [id number] Purnima Rene 09/12/[address] [facility] PLAN (MEDICAID HMO) [facility] [id number] Purnima Reillyjennifer 09/13/[address] [facility] PLAN (MEDICAID HMO) GERMAIN Mckinney [id number] Purnima Reillyarmin 03/13/[address] [facility] PLAN (MEDICAID HMO) GERMAIN Mckinney [id number] Purnima Mckinney Notes Date Note Type Note Provider Name and Address Organization Details Recorded Time 03/13/2022 text/html pt c/o right sided throat pain, fever, weakness x 3 days FREDDY GUO MD [address] [place], [address], [place] - [facility] 03/13/2022 17:34:02 OBGyn Episode No OBEpisode recorded.
[2024-02-27 08:00] VITALS: BP 122/82; PULSE 83; O2SAT 98; BMI 24.2
--- NOTE | 2024-02-27 08:00 | A.OFFPC_ITS ---
Vital Signs 02/27/24 08:00 Height 5 ft 2 in Weight 132 lb 6 oz BMI 24.2 BP 122/82 Blood Pressure Location Rt brachial Position Sitting Pulse 83 Pulse Source Pulse Oximeter Pulse Oximetry (%) 98 Intake Visit Reasons: lower back pain Allergies amoxicillin [AMOXICILLIN] Allergy (Unknown, Verified 02/27/24 08:02) RASH Medication List - Last Reconciled 02/27/24 by Ana Flores MD ascorbic acid (vitamin C) (Vitamin C) 500 mg PO DAILY benzonatate 100 mg PO BID PRN biotin 10,000 mg PO DAILY cholecalciferol (vitamin D3) (Vitamin D3) 25 mcg PO DAILY clotrimazole-betamethasone 1-0.05 % 1 appl topical ONCE 30 days cyclobenzaprine 1 to 2 orally 3 times a day PRN; ferrous sulfate 324 mg PO ONCE 90 days scopolamine base 1 patch transdermal Q3D PRN simvastatin 20 mg PO DAILY 90 days Tobacco use date assessed: 02/27/24 Dental Screening Dental Screen Date: 02/27/24 Did you have a dental visit in the last 12 months?: Yes Did you have a dental problem in the last 6 months where you did not have access to dental care?: No Was dental information given to patient?: Patient has dentist HPI lower back pain HPI Details Patient is a 53-year-old female who was evaluated 02/19/2024 at our walk- in clinic When she presented with lower back pain Following note was taken from that visit The patient is a 53 year old female who presents to the clinic today with left lower back pain for the past month. She notes she has been driving more often to see her son, who lives 2 hours away, and about 3-4 weeks ago developed left lower back pain. She treated this with ibuprofen typically with some relief, however about a week ago she felt and increased sharp pain in the left lower back, and later to developed some symptoms radiating down her leg into her knee. She denies any loss of control of bladder or bowel, or any specific trauma to the area. She reports the pain is still intermittent in nature, and does respond some to the ibuprofen. She has not tried any heat or ice or any topical mzhu-old-klcromc treatments as of yet. She was prescribed cyclobenzaprine She came in today for a follow-up visit Patient states that she continued to have the pain which starts from left lumbar area radiating to her left leg all the way to knee and little bit below Patient is having weakness in the leg and paresthesia as well Cyclobenzaprine has not helped her I have ordered x-ray of her left knee as well as lumbar spine Treatment will be provided with Diclofenac 75 mg b.i.d. with food Prednisone 20 mg once a day for 5 days with food And tramadol at night as needed for pain control, 15 tablets sent Patient have a follow-up appointment on of this month [facility] Medical History Urinary tract infection Surgical History No pertinent past surgical history Family History Other No family history of cancer Social History Household Members: Spouse Housing: House Are you a primary director medicare sales to a significant other at home: No Do you presently have visiting nurse or other home services: No Patient Tobacco Use Status: Never used Tobacco e-Cigarette/Vaping Use: Never Used service: No Current occupational status: employed Cognitive needs: No Hearing needs: No Vision needs: No Questionnaire PHQ-9 Over the last 2 weeks, how often have you been bothered by any of the following problems? 1. Little interest or pleasure in doing things: not at all 2. Feeling down, depressed, or hopeless: not at all 3. Trouble falling or staying asleep, or sleeping too much: several days 4. Feeling tired or having little energy: not at all 5. Poor appetite or overeating: not at all 6. Feeling bad about yourself - or that you are a failure or have let yourself or your family down: not at all 7. Trouble concentrating on things, such as reading the newspaper or watching television: not at all 8. Moving or speaking so slowly that other people could have noticed. Or the opposite - being so fidgety or restless that you have been moving around a lot more than usual: not at all 9. Thoughts that you would be better off or of hurting yourself in some way: not at all Total score: 1 Depression Screening Interpretation: Negative Depression Screening Done: Yes 93213 - PHQ-9 Billing: Yes Source: Developed by Drs. Cesar Santamaria, Cal Woo and colleagues, with an educational leola from [employer]. Thrive Questionnaire Date Thrive assessed: 02/27/24 I am a: Patient What is your living situation today?: I have a steady place to live Within the past 12 months, did the food you bought not last and you didn't have the money to get more?: Never true Within the past 12 months, did you worry whether your food would run out before you got money to buy more?: Never true Do you have trouble paying for medicines?: No Do you have trouble getting transportation to medical appointments?: No Do you have trouble paying your heating and electricity bill?: No Do you have trouble taking care of your child, family member or friend?: Yes Do you have trouble with day-to-day activities such as bathing, preparing meals, shopping, managing finances, etc.?: Yes Are you currently unemployed and looking for a job?: No Are you interested in more education?: No Please select the resources that you would like help with: None Currently or been in a relationship where the following occur: No concerns reported THRIVE Score: 0 AUDIT C Alcohol Use Questionnaire (AUDIT-C) 1. How often do you have a drink containing alcohol?: Never 3. How often do you have six or more drinks on one occasion?: Never Total Score: 0 Score Reviewed/Action Taken: Yes LANNY-7 AMB Questionnaire LANNY-7 Date LANNY - 7 assessed: 02/27/24 Feeling nervous, anxious, or on edge: 1 = Several days Not being able to stop or control worryin = Several days Worrying too much about different things: 1 = Several days Trouble relaxin = Several days Being so restless that it is hard to sit still: 1 = Several days Becoming easily annoyed or irritable: 1 = Several days Feeling afraid as if something awful might happen: 1 = Several days Total LANNY-7 score (0-4 normal; 5-9 mild; 10-14 moderate; 15-21 severe): 7 Source: Developed by Mali Ortiz Kurt Kroenke and colleagues, with an educational leola from [employer]. LANNY-7 Assessment Billing LANNY-7 Assessment Tool: LANNY-7 Assessment 12076 Review of Systems Const Denies chills and Denies fever(s) ENT Denies epistaxis and Denies nasal discharge Card Denies chest pain Resp Denies chest congestion, Denies cough and Denies hemoptysis GI Denies diarrhea and Denies nausea Skin/Breast Denies rash Neuro Reports no additional complaints Psych Reports no additional complaints Endo Reports no additional complaints Physical exam (Primary Care) Tobacco/Smoking Status: Tobacco use Status Tobacco use date assessed 09/05/23 09/05/23 07:52 Patient Tobacco Use Status Never used Tobacco 02/19/24 10:23 e-Cigarette/Vaping Use Never Used 09/05/23 07:52 Depression Screening Interpretation: Negative Thrive Assessment: Date of Thrive Assessment Date Thrive assessed 02/25/24 02/25/24 13:33 Currently or been in a relationship where the following occur: No concerns reported Const General: cooperative, comfortable and no acute distress Orientation/consciousness: patient oriented x3 HENMT Head: Yes normocephalic Eyes General: appearance normal, both eyes and all related structures Neck Neck: Yes supple Resp Effort & Inspection: normal respiratory effort, no cough and no stridor Cardio Rhythm: regular rhythm Heart sounds: S1 normal heart sound present and S2 normal heart sound present Back/Spine/Pelvis Other: No pain with percussion over lumbar spine, straight leg positive left side, range of motion back limited secondary to pain Skin General skin exam: turgor normal Neuro General: patient oriented x3, tone normal and moves all extremities Extrem Right lower extremity: no edema Left lower extremity: no edema Coding Level of Care Code Est Pt Level 4 (17498) Diagnoses Acute left-sided low back pain with left-sided sciatica M54.42 Back pain laterality: left Chronicity: acute Sciatica laterality: sciatica of left side Sciatica presence: with sciatica Left lumbar radiculitis M54.16 Weakness of left leg R29.898 Left leg paresthesias R20.2 Additional Codes LANNY-7 Assessment Billing - LANNY-7 Assessment Tool: LANNY-7 Assessment 30323 ([id number]) PHQ-9 - 18883 - PHQ-9 Billing: Yes ([id number]) Assessment & Plan Assessment & Plan (1) Lower back pain: Code(s): M54.50 - Low back pain, unspecified Category: Medical Qualifiers: Back pain laterality: left Chronicity: acute Sciatica laterality: sciatica of left side Sciatica presence: with sciatica Qualified Code(s): M54.42 - Lumbago with sciatica, left side (2) Left lumbar radiculitis: Code(s): M54.16 - Radiculopathy, lumbar region Category: Medical (3) Weakness of left leg: Code(s): R29.898 - Other symptoms and signs involving the musculoskeletal system Category: Medical (4) Left leg paresthesias: Code(s): R20.2 - Paresthesia of skin Category: Medical Plan Patient is a 53-year-old female who was evaluated 02/19/2024 at our walk-in clinic When she presented with lower back pain Following note was taken from that visit The patient is a 53 year old female who presents to the clinic today with left lower back pain for the past month. She notes she has been driving more often to see her son, who lives 2 hours away, and about 3-4 weeks ago developed left lower back pain. She treated this with ibuprofen typically with some relief, however about a week ago she felt and increased sharp pain in the left lower back, and later to developed some symptoms radiating down her leg into her knee. She denies any loss of control of bladder or bowel, or any specific trauma to the area. She reports the pain is still intermittent in nature, and does respond some to the ibuprofen. She has not tried any heat or ice or any topical mabu-yli-ogfcjpy treatments as of yet. She was prescribed cyclobenzaprine She came in today for a follow-up visit Patient states that she continued to have the pain which starts from left lumbar area radiating to her left leg all the way to knee and little bit below Patient is having weakness in the leg and paresthesia as well Cyclobenzaprine has not helped her I have ordered x-ray of her left knee as well as lumbar spine Treatment will be provided with Diclofenac 75 mg b.i.d. with food Prednisone 20 mg once a day for 5 days with food And tramadol at night as needed for pain control, 15 tablets sent Patient have a follow-up appointment on this month Orders: Orders XR lumbar spine 2-3V Today M54.16 - Radiculopathy, lumbar region, M54.50 - Low back pain, unspecified, R20.2 - Paresthesia of skin, R29.898 - Other symptoms and signs involving the musculoskeletal system XR knee RT 2V Today M54.16 - Radiculopathy, lumbar region, M54.50 - Low back pain, unspecified, R20.2 - Paresthesia of skin, R29.898 - Other symptoms and signs involving the musculoskeletal system Medications: New prednisone 20 mg PO DAILY 5 days 5 tabs 0RF diclofenac sodium 75 mg PO BID 15 days 30 tabs 0RF pain tramadol 50 mg PO BEDTIME 15 days PRN 14 tabs 0RF pain
== END 2024-02-27 09:34 | disposition home or self-care (01) ==
PROVIDERS: PCP Internal Medicine; Visit Provider Internal Medicine
DX: M54.42 Lumbago with sciatica, left side (principal); M54.16 Radiculopathy, lumbar region; R29.898 Other symptoms and signs involving the musculoskeletal system; R20.2 Paresthesia of skin

== ENCOUNTER 2024-02-27 07:55 | Outpatient (REF) | payer OTHER, SELFPAY ==
--- NOTE | ~2024-02-27 | XR_ITS ---
EXAMINATION: XR KNEE 1-2 VIEWS LEFT HISTORY: Left knee pain. COMPARISON: There are no prior studies available for comparison. FINDINGS: AP and lateral views of the left knee are submitted. Osseous mineralization is normal. There is no fracture or dislocation. There is mild degenerative change with narrowing of the medial compartment and small osteophytes off the superior and inferior poles of the patella. The soft tissues are unremarkable. There is no joint effusion. XR/XR knee LT 2V IMPRESSION: Mild degenerative changes as described. Electronically signed by: Cesar Cardoza MD 03/02/2024 08:13 AM [facility]
--- NOTE | ~2024-02-27 | XR_ITS ---
EXAMINATION: XR LUMBOSACRAL SPINE CLINICAL INFORMATION: M54.50 - Low back pain, unspecified COMPARISON: None available. TECHNIQUE: Three views of the lumbosacral spine. FINDINGS: Endplate sclerosis decreased intervertebral disc height at L5-S1. Grade 1 anterolisthesis L4-5. Multilevel marginal osteophyte formation and endplate sclerosis and the lower thoracic spine. Facet joint hypertrophy at L4-5 and L5-S1. No acute cortical disruption. No lytic or blastic lesions. XR/XR lumbar spine 2-3V IMPRESSION: Multilevel spondylosis resulting in grade 1 anterolisthesis L4-5. Electronically signed by: Austin Pedro MD 03/03/2024 12:01 PM [facility]
== END 2024-02-27 07:56 | disposition home or self-care (01) ==
LOC: HO.HMGCX 07:55
PROVIDERS: PCP Internal Medicine; Visit Provider Internal Medicine
DX: M54.42 Lumbago with sciatica, left side (principal); M54.16 Radiculopathy, lumbar region; R29.898 Other symptoms and signs involving the musculoskeletal system; R20.2 Paresthesia of skin
CPT/HCPCS: 72100; 73560; 96127; 99212

== ENCOUNTER → 2024-02-27 08:34 | Outpatient (BNV) | payer OTHER, SELFPAY | PROVIDERS: PCP Internal Medicine; Visit Provider Radiology Diagnostic Radiology | DX: M54.50 Low back pain, unspecified (principal) | CPT/HCPCS: 72100; 73560 ==

== ENCOUNTER 2024-03-05 08:11 | Outpatient (REF) | payer OTHER, SELFPAY ==
--- OUTSIDE RECORDS SUMMARY | 2024-03-05 08:24 | XMS_ITS | Data Portability ---
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 Plan of Treatment Reminders Order Date Submit Date Provider Last Modified By Organization Details Last Modified Time Details Appointments None recorded. Lab streptococc us group A, culture, throat 2022 023 [place] [facility] ([facility], [address] [place], [address], 3 12:06:35 rapid strep group A, throat 2022 023 [email or web address], [address] [place], [address], 3 17:20:13 streptococc us group A, culture, throat [email or web address], [address] [place], [address], 3 13:30:07 Referral None recorded. Procedures None recorded. Surgeries None recorded. Imaging None recorded. Medication Orders azithromyci n 250 mg tablet 2022 023 [facility] #[id number], [address] [place], [address], 3 17:20:16 Patient TargetsNo targets recorded. Patient InstructionsNo instructions recorded. Reason for Referral None Reported. Results Created Date Observation Date Name Description Value Unit Range Abnormal Flag Note LastModifiedBy Organization Detail LastModifiedTime 03/13/1903/16/2022 BETA STREP GP A CULTU RE beta strep gp A culture NEGATI VE Refer ence Range : Negat deangelo Not Available [facility] ([facility]) [address] [facility], [place], [address], 03/16/2022 12:06:35 03/13/1903/13/2022 rapid strep group A, throa t Unknown Analyte Normal = Negati ve Not Available [address] [place], [address], 03/13/2022 16:37:24 03/13/1903/13/2022 rapid strep group A, throa t Unknown Analyte negati ve Not Available [address] [place], [address], 03/13/2022 16:37:24 Result Notes None recorded. Problems Name Problem SNOMED Code Status Onset Date Resolution Date Notes Provider Name and Address Organization Details Recorded Time Hyperlipidemia 07401296 Active 2022 [facility] 3 16:31:38 Problem Notes None recorded. Medical Equipment None Reported. Allergies Allergen ID Allergen Name Allergen Category Reaction Reaction Severity Criticality Documentation Date Start Date Code Code System Note Provider Name and Address Organization Details Recorded Time 925172 amoxicill in medicatio n Not available Not [...] Not Available Vitals Date Recorded Body height Provider Name an d Address Organization Details Last Updated DateTime 03/13/2022 157.48 cm Kami Todd PA - [facility] 0 03/13/2022 16:31:54 Date Recorded Body mass index (BMI) Body weight Provider Name and Address Organization Details Last Updated DateTime 03/13/2022 23.8 kg/m2 66384.01 g Kami Todd PA - [facility] 03/13/2022 16:32:15 Date Recorded Pain severity - 0-10 verbal numeric rating [Score] - Reported Provider Name and Address Organization Details Last Updated DateTime 03/13/2022 6 Kami Todd PA - [facility] 0 03/13/2022 16:32:03 Date Recorded Heart rate Provider Name an d Address Organization Details Last Updated DateTime 03/13/2022 68 /min Kami Todd PA - [facility] 0 03/13/2022 16:33:20 Date Recorded Oxygen saturation Oxygen saturation in Arterial blood by Pulse oximetry Provider Name and Address Organization Details Last Updated DateTime 03/13/2022 99 % 99 % Kami Todd PA - [facility] 03/13/2022 16:33:17 Date Recorded Respiratory rate Provider Name a nd Address Organization Details Last Updated DateTime 03/13/2022 18 /min Kami Todd PA - [facility] 0 03/13/2022 16:33:21 Date Recorded Body temperature Provider Name a nd Address Organization Details Last Updated DateTime 03/13/2022 98.7 [degF] Kami Todd PA - [facility] 03/13/2022 16:33:26 Date Recorded Systolic blood pressure Diastolic blood pressure Provider Name and Address Organization Details Last Updated DateTime 03/13/2022 130 mm[Hg] 80 mm[Hg] Kami Todd PA - [facility] 03/13/2022 16:33:16 Social History Question Answer Notes LastModified by Organizat ion Details LastModified Time Tobacco Smoking Status Never Smoker Kami Todd reena PA - [facility] 03/13/2022 16:31:50 What Is Your Level Of Alcohol Consumption? None [email or web address] Information not available 03/13/2022 Do You Use Any Illicit Or Recreational Drugs? No [email or web address] Information not available 03/13/2022 Do You Or Have You Ever Used Any Other Forms Of Tobacco Or Nicotine? No [email or web address] Information not available 03/13/2022 Sex: Unknown Functional Status None recorded. Mental Status None recorded. Family History Nothing Reported. Medical History No medical history recorded. Gynecological HistoryNo gynecological history recorded. Obstetrics History GPAL:G 0 P 0 0 0 0 Immunizations Vaccine Type Date Status Note Provider Nam e and Address Organization Details Recorded Time COVID-19, mRNA, LNP-S, PF, 30 mcg/0.3 mL dose 2 completed Kamivera Todd null, PA - [facility] 03/13/2022 16:30:51 COVID-19, mRNA, LNP-S, PF, 30 mcg/0.3 mL dose, fahad-sucrose 2 completed Kamivera Todd null, PA - [facility] 03/13/2022 16:30:51 Td (adult), 5 Lf tetanus toxoid, preservative free, adsorbed 3 completed Kami valles, PA - [facility] 03/13/2022 16:30:51 Influenza, split virus, quadrivalent, preservative 7 completed Kamivera valles, PA - [facility] 03/13/2022 16:30:51 Past Encounters Encounter ID Performer Location Encounter Start Date Encounter Closed Date Diagnosis/Indication Diagnosis SNOMED-CT Code Diagnosis ICD10 Code Diagnosis Note [id number] [address] [place] [address] 09/12/2021 08:42:07 09/12/2021 09:03:51 [id number] [address] [place] [address] 12/21/2020 08:03:16 12/21/2020 09:16:57 [id number] [address] [place], [place] [address], [place] [address] 06/28/2016 15:17:18 06/28/2016 16:05:30 [id number] [address] [address] [place] [address] 09/13/2021 18:20:53 09/13/2021 19:38:27 [id number] [address] [facility] SHRUTHI Johnson [address] 11/29/2020 16:07:20 11/29/2020 17:06:12 [id number] [address] [facility] SHRUTHI Johnson [address] 10/14/2016 17:41:11 10/14/2016 18:07:37 [id number] FREDDY GUO MD [address] [facility] SHRUTHI hernandez [id number] 03/13/2022 15:29:06 03/13/2022 17:21:51 Sore throat 602840867 J02.9 Sore throatClea r liquids for comfortFre sh Helder Root Tea-Cut up fresh helder root and boil it till fragrant. drink the liquid as a tea. Can add Honey to taste. Also For Sore Throat:Thr oat Comfort Tea (by [employer])Thro at Coat Tea ( by [employer] ) Clear broth soup: Vegetable, Chicken or Beef as tolerated. Cervical lymphadenitis 9414771 I88.9 Health Concerns Section Related Observation LastModified by Organization Detai ls LastModified Time None Recorded Concern Status LastModified by Organization Details LastModified Time None Recorded Advance Directives Directive None Recorded Payers Encounter Date Sequence Insurance Name Policy Number Policy Marcum Covered Member ID Marcum Member ID Guarantor Name 11/29/2020 1 [facility]AN (MEDICAID HMO) GERMAIN Mckinney [id number] Purnima Mckinney 12/21/2020 1 [facility] NET PLAN (MEDICAID HMO) GERMAIN Mckinney [id number] Purnima Mckinney 09/12/2021 1 [facility] NET PLAN (MEDICAID HMO) GERMAIN Mckinney [id number] Purnima Mckinney 09/13/2021 1 [facility] NET PLAN (MEDICAID HMO) GERMAIN Mckinney [id number] Purnima Mckinney 03/13/2022 1 [facility] NET PLAN (MEDICAID HMO) GERMAIN Reneuk [id number] Purnima Mckinney Notes Date Note Type Note Provider Name and Address Organization Details Recorded Time 03/13/2022 text/html pt c/o right sided throat pain, fever, weakness x 3 days FREDDY GUO MD [address] [place], [place] [address], [address], PA - [facility] 03/13/2022 17:34:02 OBGyn Episode No OBEpisode recorded.
[2024-03-05 10:17] LABS: MANUAL DIFF FLAG NO
[2024-03-05 10:28] LABS: Basophils Absolute Auto 0.1 X10*3/uL (0.0-0.2); Eosinophils Absolute Auto 0.3 X10*3/uL (0.0-0.4); Eosinophils Percent Auto 2.9 % (0-4); Hematocrit 40.4 % (37.0-47.0); Hemoglobin 13.6 g/dl (12.0-16.0); Imm Gran Abs Auto 0.03 X10*3/uL (0.00-0.03); Imm Gran Pct Auto 0.3 % (0.0-0.4); Lymphocytes Absolute Auto 4.5 X10*3/uL (1.2-4.9); Mean Corpuscular HGB Conc 33.7 g/dl (31.0-35.0); Mean Corpuscular Hemoglobin 29.2 pg (27.0-33.0); Mean Corpuscular Volume 86.7 fL (80.0-98.0); Mean Platelet Volume 10.2 fL (9.4-12.3); Monocytes Absolute Auto 0.7 X10*3/uL (0.1-1.2); Monocytes Percent Auto 7.7 % (2-11); Neutrophils Absolute Auto 3.6 x10*3/uL (2.0-8.3); Neutrophils Percent Auto 39.1 % (45-73); Platelet Count 380 X10*3/uL (160-400); Red Blood Count 4.66 X10*6/uL (4.20-5.50); Red Cell Distribution Width 12.1 % (11.0-16.0); White Blood Count 9.2 X10*3/uL (4.8-10.8)
[2024-03-05 11:02] LABS: Alanine Aminotransferase 27 U/L (0-31); Albumin Level 4.2 g/dL (3.5-5.0); Alkaline Phosphatase 66 U/L (39-117); Anion Gap 9 (12-20); Aspartate Amino Transferase 50 U/L (5-31); Bilirubin Total 0.4 mg/dL (0.0-1.0); Blood Urea Nitrogen 11 mg/dL (9-16); Calcium 8.9 mg/dL (8.4-10.2); Carbon Dioxide 28 mmol/L (22-29); Chloride 110 mmol/L (96-108); Cholesterol 214 mg/dL (<200); Estimated Glomerular Filt Rate > 60; Glucose Fasting 84 mg/dL (60-99); HDL Cholesterol 58 mg/dL (>40); LDL Cholesterol Calculated 108 mg/dL (<100); Potassium 3.7 mmol/L (3.3-5.1); Sodium 143 mmol/L (135-145); Total Protein 6.8 g/dL (6.5-8.0); Triglycerides 241 mg/dL (<150)
== END 2024-03-05 08:12 | disposition home or self-care (01) ==
LOC: HO.HMGCLDS 08:11
PROVIDERS: PCP Internal Medicine; Visit Provider Internal Medicine
DX: Z00.01 Encounter for general adult medical examination with abnormal findings (principal); H93.13 Tinnitus, bilateral; R42 Dizziness and giddiness
CPT/HCPCS: 36415; 80053; 80061; 85025

== ENCOUNTER 2024-03-09 08:44 | Outpatient (AMB) | payer OTHER, SELFPAY ==
[2024-03-09 08:55] VITALS: BP 130/88; PULSE 92; O2SAT 100; BMI 24.2
--- NOTE | 2024-03-09 08:55 | A.OFFPC_ITS ---
Vital Signs 03/09/24 08:55 Height 5 ft 2 in Weight 132 lb 8 oz BMI 24.2 BP 130/88 Blood Pressure Location Lt brachial Position Sitting Pulse 92 Pulse Source Pulse Oximeter Pulse Oximetry (%) 100 Oxygen Delivery Method Room Air Intake Visit Reasons: 6 month follow up Allergies amoxicillin [AMOXICILLIN] Allergy (Unknown, Verified 03/09/24 08:59) RASH Medication List - Last Reconciled 03/09/24 by Ana Flores MD ascorbic acid (vitamin C) (Vitamin C) 500 mg PO DAILY biotin 10,000 mg PO DAILY cholecalciferol (vitamin D3) (Vitamin D3) 25 mcg PO DAILY cyclobenzaprine 1 to 2 orally 3 times a day PRN; diclofenac sodium 75 mg PO BID 15 days ferrous sulfate 324 mg PO ONCE 90 days scopolamine base 1 patch transdermal Q3D PRN simvastatin 20 mg PO DAILY 90 days tramadol 50 mg PO BEDTIME PRN 15 days Tobacco use date assessed: 03/09/24 Dental Screening Dental Screen Date: 03/09/24 Did you have a dental visit in the last 12 months?: Yes Did you have a dental problem in the last 6 months where you did not have access to dental care?: No Was dental information given to patient?: Patient has dentist HPI 6 month follow up HPI Details - The patient is a 53-year-old female pr esenting with lower back pain radiating to the left leg. - Symptoms commenced on February 08, a pproximately four weeks prior to the visit. - Pain severity intermittently reaches u p to 9 out of 10 but can fluctuate. - Pain significantly impairs activities such as picking items from the floor and driving. - Reports weakness initially, especially descending stairs; continues to experience numbness in the leg. - X-ray indicates multilevel spondylosis ; symptoms suggestive of a possible herniated disc. - Treatment to date includes prednisone, ibuprofen, and tramadol with temporary relief. - Experiences increased difficulty durin g activities such as rising from the toilet without assistance. Problem List - Multilevel spondylosis - Possible herniated disc - left lumbar radiculitis - paresthesia left lower extremity Patient Instructions - Begin physical therapy as prescribed. - Continue taking medications as previou sly directed for pain relief. - Attend MRI appointment upon approval t o further investigate symptoms. Review of Systems - Musculoskeletal: Reports severe lower back pain radiating to the left leg, leg weakness, and numbness. - Neurological: Reports occasional leg w eakness and numbness. 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: Alert awake oriented x3 motor sensory intact, uncomfortable sitting down, straight leg positive left side, motor strength equal both legs Skin: Normal turgor [facility] Medical History Urinary tract infection Surgical History No pertinent past surgical history Family History Other No family history of cancer Social History Household Members: Spouse Housing: House Are you a primary animal care attendant to a significant other at home: No Do you presently have visiting nurse or other home services: No Patient Tobacco Use Status: Never used Tobacco e-Cigarette/Vaping Use: Never Used service: No Current occupational status: employed Cognitive needs: No Hearing needs: No Vision needs: No Questionnaire PHQ-9 Over the last 2 weeks, how often have you been bothered by any of the following problems? 1. Little interest or pleasure in doing things: not at all 2. Feeling down, depressed, or hopeless: not at all 3. Trouble falling or staying asleep, or sleeping too much: several days 4. Feeling tired or having little energy: not at all 5. Poor appetite or overeating: not at all 6. Feeling bad about yourself - or that you are a failure or have let yourself or your family down: not at all 7. Trouble concentrating on things, such as reading the newspaper or watching television: not at all 8. Moving or speaking so slowly that other people could have noticed. Or the opposite - being so fidgety or restless that you have been moving around a lot more than usual: not at all 9. Thoughts that you would be better off or of hurting yourself in some way: not at all Total score: 1 Depression Screening Interpretation: Negative Depression Screening Done: Yes 37119 - PHQ-9 Billing: Yes Source: Developed by Drs. Cesar Santamaria, Mali Champion, Cal Lomeli and colleagues, with an educational leola from [employer]. Thrive Questionnaire Date Thrive assessed: 03/09/24 I am a: Patient What is your living situation today?: I have a steady place to live Within the past 12 months, did the food you bought not last and you didn't have the money to get more?: Never true Within the past 12 months, did you worry whether your food would run out before you got money to buy more?: Never true Do you have trouble paying for medicines?: No Do you have trouble getting transportation to medical appointments?: No Do you have trouble paying your heating and electricity bill?: No Do you have trouble taking care of your child, family member or friend?: Yes Do you have trouble with day-to-day activities such as bathing, preparing meals, shopping, managing finances, etc.?: Yes Are you currently unemployed and looking for a job?: No Are you interested in more education?: No Please select the resources that you would like help with: None Currently or been in a relationship where the following occur: No concerns reported THRIVE Score: 0 AUDIT C Alcohol Use Questionnaire (AUDIT-C) 1. How often do you have a drink containing alcohol?: Never 3. How often do you have six or more drinks on one occasion?: Never Total Score: 0 Score Reviewed/Action Taken: Yes LANNY-7 AMB Questionnaire LANNY-7 Date LANNY - 7 assessed: 03/09/24 Feeling nervous, anxious, or on edge: 1 = Several days Not being able to stop or control worryin = Several days Worrying too much about different things: 1 = Several days Trouble relaxin = Several days Being so restless that it is hard to sit still: 1 = Several days Becoming easily annoyed or irritable: 1 = Several days Feeling afraid as if something awful might happen: 1 = Several days Total LANNY-7 score (0-4 normal; 5-9 mild; 10-14 moderate; 15-21 severe): 7 Source: Developed by Drs. Cesar Santamaria, Mali Champion, Cal Lomeli and colleagues, with an educational leola from [employer]. LANNY-7 Assessment Billing LANNY-7 Assessment Tool: LANNY-7 Assessment 34040 Physical exam (Primary Care) Vital Signs: Last Vital Signs Pulse 92 03/09/24 08:55 BP 130/88 03/09/24 08:55 Pulse Ox 100 03/09/24 08:55 Oxygen Delivery Method Room Air 03/09/24 08:55 BMI result Body Mass Index 24.2 Tobacco/Smoking Status: Tobacco use Status Tobacco use date assessed 03/09/24 03/09/24 09:00 Patient Tobacco Use Status Never used Tobacco 03/09/24 09:00 e-Cigarette/Vaping Use Never Used 03/09/24 09:00 PHQ-9: PHQ-9 Score PHQ-9: Total score 1 03/09/24 09:00 Depression Screening Interpretation: Negative Thrive Assessment: Date of Thrive Assessment Date Thrive assessed 03/09/24 03/09/24 09:00 Currently or been in a relationship where the following occur: No concerns reported Coding Level of Care Code Est Pt Level 3 (54784) Diagnoses Left leg paresthesias R20.2 Left lumbar radiculitis M54.16 Weakness of left leg R29.898 Additional Codes LANNY-7 Assessment Billing - LANNY-7 Assessment Tool: LANNY-7 Assessment 29051 ([id number]) PHQ-9 - 21378 - PHQ-9 Billing: Yes ([id number]) Assessment & Plan Assessment & Plan (1) Left leg paresthesias: Code(s): R20.2 - Paresthesia of skin Category: Medical (2) Left lumbar radiculitis: Code(s): M54.16 - Radiculopathy, lumbar region Category: Medical (3) Weakness of left leg: Code(s): R29.898 - Other symptoms and signs involving the musculoskeletal system Category: Medical Plan - The patient is a 53-year-old female presenting with lower back pain radiating to the left leg. - Symptoms commenced on February 08, approximately four weeks prior to the visit. - Pain severity intermittently reaches up to 9 out of 10 but can fluctuate. - Pain significantly impairs activities such as picking items from the floor and driving. - Reports weakness initially, especially descending stairs; continues to experience numbness in the leg. - X-ray indicates multilevel spondylosis; symptoms suggestive of a possible herniated disc. - Treatment to date includes prednisone, ibuprofen, and tramadol with temporary relief. - Experiences increased difficulty during activities such as rising from the toilet without assistance. Problem List - Multilevel spondylosis - Possible herniated disc - left lumbar radiculitis - paresthesia left lower extremity Patient Instructions - Begin physical therapy as prescribed. - Continue taking medications as previously directed for pain relief. - Attend MRI appointment upon approval Follow-up after MRI report Orders: Orders OT Evaluation and Treatment Today M54.16 - Radiculopathy, lumbar region, R20.2 - Paresthesia of skin, R29.898 - Other symptoms and signs involving the musculoskeletal system MR lumbar spine wo con Today M54.16 - Radiculopathy, lumbar region, R20.2 - Paresthesia of skin, R29.898 - Other symptoms and signs involving the musculoskeletal system Medications: Changed From cyclobenzaprine 1 to 2 orally 3 times a day PRN; 10 tabs 0RF muscle spasm To cyclobenzaprine 5 mg PO BEDTIME PRN 14 tabs 0RF muscle spasm 14 days Refilled tramadol 50 mg PO BEDTIME PRN 14 tabs 0RF pain 15 days diclofenac sodium 75 mg PO BID 30 tabs 0RF pain 15 days
--- OUTSIDE RECORDS SUMMARY | 2024-03-09 09:00 | XMS_ITS | Data Portability ---
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 Plan of Treatment Reminders Order Date Submit Date Provider Last Modified By Organization Details Last Modified Time Details Appointments None recorded. Lab streptococc us group A, culture, throat 2022 023 LEUPP [facility] ([facility], [address] [place], [address], 3 12:06:35 rapid strep group A, throat 2022 023 [email or web address], [address] [place], [address], 3 17:20:13 streptococc us group A, culture, throat [address], [address] [place], [address], 3 13:30:07 Referral None recorded. Procedures None recorded. Surgeries None recorded. Imaging None recorded. Medication Orders azithromyci n [address] [id number], [address] [place], [address], 3 17:20:16 Patient TargetsNo targets recorded. Patient InstructionsNo instructions recorded. Reason for Referral None Reported. Results Created Date Observation Date Name Description Value Unit Range Abnormal Flag Note LastModifiedBy Organization Detail LastModifiedTime 03/13/1903/16/2022 BETA STREP GP A CULTU RE beta strep gp A culture NEGATI VE Refer ence Range : Negat deangelo Not Available [facility] ([facility]) [address] [facility], [place], [address], 03/16/2022 12:06:35 03/13/1903/13/2022 rapid strep group A, throa t Unknown Analyte Normal = Negati ve Not Available [address] [place], [address], 03/13/2022 16:37:24 03/13/1903/13/2022 rapid strep group A, throa t Unknown Analyte negati ve Not Available [address] [place], [address], 03/13/2022 16:37:24 Result Notes None recorded. Problems Name Problem SNOMED Code Status Onset Date Resolution Date Notes Provider Name and Address Organization Details Recorded Time Hyperlipidemia 59856336 Active 2022 [facility] 3 16:31:38 Problem Notes None recorded. Medical Equipment None Reported. Allergies Allergen ID Allergen Name Allergen Category Reaction Reaction Severity Criticality Documentation Date Start Date Code Code System Note Provider Name and Address Organization Details Recorded Time 303157 amoxicill in medicatio n Not available Not [...] Details Last Updated DateTime 03/13/2022 23.8 kg/m2 01298.01 g Kami Todd PA - [facility] [...] Is Your Level Of Alcohol Consumption? None [email or web address] Information not available 03/13/2022 Do You Use Any Illicit Or Recreational Drugs? No [email or web address] Information not available 03/13/2022 Do You Or [...] SNOMED-CT Code Diagnosis ICD10 Code Diagnosis Note [id number] [address] [place] [address] 09/12/2021 08:42:07 09/12/2021 09:03:51 [id number] [address] [place] [address] 12/21/2020 08:03:16 12/21/2020 09:16:57 [id number] [address] [place], [place] [address], [place] [address] 06/28/2016 15:17:18 06/28/2016 16:05:30 [id number] [address] [address] [place] [address] 09/13/2021 18:20:53 09/13/2021 19:38:27 [id number] [address] [facility] SHRUTHI Johnson [address] 11/29/2020 16:07:20 11/29/2020 17:06:12 [id number] [address] [facility] SHRUTHI Johnson [address] 10/14/2016 17:41:11 10/14/2016 18:07:37 [id number] FREDDY GUO MD [address] [facility] SHRUTHI hernandez [address] 03/13/2022 15:29:06 03/13/2022 17:21:51 Sore throat [id number] J02.9 Sore throatClea r liquids for comfortFre sh Helder Root Tea-Cut up fresh helder root and boil it till fragrant. drink the liquid as a tea. Can add Honey to taste. Also For Sore Throat:Thr oat Comfort Tea (by [employer])Thro at Coat Tea ( by [employer] ) Clear broth soup: Vegetable, Chicken or Beef as tolerated. Cervical lymphadenitis 3821386 I88.9 Health Concerns Section Related Observation LastModified by Organization Detai ls LastModified Time None Recorded Concern Status LastModified by Organization Details LastModified Time None Recorded Advance Directives Directive None Recorded Payers Encounter Date Sequence Insurance Name Policy Number Policy Marcum Covered Member ID Marcum Member ID Guarantor Name 11/29/2020 1 [facility] NET PLAN (MEDICAID HMO) GERMAIN Mckinney [id number] Purnima Mckinney 12/21/2020 1 [facility] NET PLAN (MEDICAID HMO) GERMAIN Mckinney [id number] Purnima Mckinney 09/12/2021 1 [facility] NET PLAN (MEDICAID HMO) GERMAIN Mckinney [id number] Purnima Mckinney 09/13/2021 1 [facility] NET PLAN (MEDICAID HMO) GERMAIN Mckinney [id number] Purnima Mckinney 03/13/2022 1 [facility] [employer] NET PLAN (MEDICAID HMO) GERMAIN Reneuk [id number] Purnima Mckinney Notes Date Note Type Note Provider Name and Address Organization Details Recorded Time 03/13/2022 text/html pt c/o right sided throat pain, fever, weakness x 3 days FREDDY GUO MD [address] [place], [place] [address], [address], PA - [facility] 03/13/2022 17:34:02 OBGyn Episode No OBEpisode recorded.
== END 2024-03-09 11:20 | disposition home or self-care (01) ==
PROVIDERS: PCP Internal Medicine; Visit Provider Internal Medicine
DX: R20.2 Paresthesia of skin (principal); M54.16 Radiculopathy, lumbar region; R29.898 Other symptoms and signs involving the musculoskeletal system

== ENCOUNTER → 2024-03-09 08:44 | Outpatient (BNVA) | payer OTHER, SELFPAY | PROVIDERS: PCP Internal Medicine; Visit Provider Internal Medicine | DX: R20.2 Paresthesia of skin (principal); M54.16 Radiculopathy, lumbar region; R29.898 Other symptoms and signs involving the musculoskeletal system | CPT/HCPCS: 96127; 99212 ==

== ENCOUNTER → 2024-03-26 16:05 | Outpatient (BNV) | payer OTHER, SELFPAY | PROVIDERS: PCP Internal Medicine; Visit Provider Radiology Diagnostic Radiology | DX: M54.16 Radiculopathy, lumbar region (principal) | CPT/HCPCS: 72148 ==

== ENCOUNTER 2024-03-26 16:27 | Outpatient (REF) | payer OTHER, SELFPAY ==
--- NOTE | ~2024-03-26 | MR_ITS ---
MR/MR lumbar spine wo con IMPRESSION: Multilevel thoracolumbar spondylosis. Left foraminal disc extrusion, L3-4 compressing the left L3 exiting nerve root. Right subarticular disc protrusion, T11-12 without compression upon neural elements. Bilateral neuroforamina narrowing, L4-5 and L5-S1 on a degenerative basis. Electronically signed by: Austin Pedro MD 03/29/2024 07:53 AM EST
== END 2024-03-26 16:28 | disposition home or self-care (01) ==
LOC: HO.MRI 16:27
PROVIDERS: PCP Internal Medicine; Visit Provider Internal Medicine
DX: R20.2 Paresthesia of skin (principal); M54.16 Radiculopathy, lumbar region; R29.898 Other symptoms and signs involving the musculoskeletal system
CPT/HCPCS: 72148

== ENCOUNTER 2024-03-31 12:57 | Outpatient (AMB) | payer OTHER, SELFPAY ==
--- NOTE | 2024-03-31 13:00 | MHC.PC.OV ---
Vital Signs 03/31/24 13:01 Height 5 ft 2 in Weight 134 lb BMI 24.5 BP 120/74 Blood Pressure Location Lt brachial Position Sitting Respiration 18 Pulse 101 H Pulse Source Pulse Oximeter Temp 99.1 F Temp Source Oral Pulse Oximetry (%) 97 Oxygen Delivery Method Room Air Intake Visit Reasons: Discuss Results Allergies amoxicillin [AMOXICILLIN] Allergy (Unknown, Verified 03/31/24 13:01) RASH Medication List - Last Reconciled 03/31/24 by Ana Flores MD ascorbic acid (vitamin C) (Vitamin C) 500 mg PO DAILY biotin 10,000 mg PO DAILY cholecalciferol (vitamin D3) (Vitamin D3) 25 mcg PO DAILY cyclobenzaprine 5 mg PO BEDTIME PRN 14 days diclofenac sodium 75 mg PO BID 15 days ferrous sulfate 324 mg PO ONCE 90 days scopolamine base 1 patch transdermal Q3D PRN simvastatin 20 mg PO DAILY 90 days tramadol 50 mg PO BEDTIME PRN 15 days Tobacco use date assessed: 03/31/24 Dental Screening Dental Screen Date: 03/09/24 HPI Discuss Results HPI Details Patient is a 53-year-old female came in today to go over MRI report and also for an acute visit Patient has been having sore throat cough for the past 3 days Cough is getting congested, sinuses feels full Having mild headache but no fever chills No chest pain no shortness a breath Her mid back pain is better MRI back showed Multilevel thoracolumbar spondylosis. Left foraminal disc extrusion, L3-4 compressing the left L3 exiting nerve root. Right subarticular disc protrusion, T11-12 without compression upon neural elements. Bilateral neuroforamina narrowing, L4-5 and L5-S1 on a degenerative basis. Since she is feeling better we will continue to observe. For her respiratory infection I have sent antibiotic patient was instructed to push fluids and vitamin-C. [facility] Medical History Urinary tract infection Surgical History No pertinent past surgical history Family History Other No family history of cancer Social History Household Members: Spouse Housing: House Are you a primary healthcare business analyst to a significant other at home: No Do you presently have visiting nurse or other home services: No Patient Tobacco Use Status: Never used Tobacco e-Cigarette/Vaping Use: Never Used service: No Current occupational status: employed Cognitive needs: No Hearing needs: No Vision needs: No Questionnaire Thrive Questionnaire Date Thrive assessed: 02/25/24 I am a: Patient What is your living situation today?: I have a steady place to live Within the past 12 months, did the food you bought not last and you didn't have the money to get more?: Never true Within the past 12 months, did you worry whether your food would run out before you got money to buy more?: Never true Do you have trouble paying for medicines?: No Do you have trouble getting transportation to medical appointments?: No Do you have trouble paying your heating and electricity bill?: No Do you have trouble taking care of your child, family member or friend?: Yes Do you have trouble with day-to-day activities such as bathing, preparing meals, shopping, managing finances, etc.?: Yes Are you currently unemployed and looking for a job?: No Are you interested in more education?: No Please select the resources that you would like help with: None Currently or been in a relationship where the following occur: No concerns reported THRIVE Score: 0 LANNY-7 AMB Questionnaire LANNY-7 Date LANNY - 7 assessed: 03/09/24 Source: Developed by Drs. Cesar Santamaria, Mali Champion, Cal Lomeli and colleagues, with an educational leola from [employer]. Physical exam (Primary Care) Vital Signs: Last Vital Signs Temp 99.1 F 03/31/24 13:01 Pulse 101 H 03/31/24 13:01 Resp 18 03/31/24 13:01 BP 120/74 03/31/24 13:01 Pulse Ox 97 03/31/24 13:01 Oxygen Delivery Method Room Air 03/31/24 13:01 BMI result Body Mass Index 24.5 Tobacco/Smoking Status: Tobacco use Status Tobacco use date assessed 03/31/24 03/31/24 13:07 Patient Tobacco Use Status Never used Tobacco 03/31/24 13:07 e-Cigarette/Vaping Use Never Used 03/31/24 13:07 Thrive Assessment: Date of Thrive Assessment Date Thrive assessed 02/25/24 03/31/24 13:07 Currently or been in a relationship where the following occur: No concerns reported Results AMB Rapid Strep AMB Rapid Strep Negative Last Edit by SONIA Haney on 03/31/24 13:20 Results Reviewed Results Reviewed: Laboratory Last Values Strep Scn Rapid Clinic Negative 03/31/24 13:10 Coding Level of Care Code Est Pt Level 3 (35290) Diagnoses Left lumbar radiculitis M54.16 HNP (herniated nucleus pulposus), lumbar M51.26 Acute pharyngitis J02.9 Assessment & Plan Assessment & Plan (1) Left lumbar radiculitis: Code(s): M54.16 - Radiculopathy, lumbar region Category: Medical (2) HNP (herniated nucleus pulposus), lumbar: Code(s): M51.26 - Other intervertebral disc displacement, lumbar region Category: Medical (3) Acute pharyngitis: Code(s): J02.9 - Acute pharyngitis, unspecified Category: Medical Plan Patient is a 53-year-old female came in today to go over MRI report and also for an acute visit Patient has been having sore throat cough for the past 3 days Cough is getting congested, sinuses feels full Having mild headache but no fever chills No chest pain no shortness a breath Her mid back pain is better MRI back showed Multilevel thoracolumbar spondylosis. Left foraminal disc extrusion, L3-4 compressing the left L3 exiting nerve root. Right subarticular disc protrusion, T11-12 without compression upon neural elements. Bilateral neuroforamina narrowing, L4-5 and L5-S1 on a degenerative basis. Since she is feeling better we will continue to observe. For her respiratory infection I have sent antibiotic patient was instructed to push fluids and vitamin-C. Orders: Orders AMB Rapid Strep Screen Today Z13.9 - Encounter for screening, unspecified SARS-CoV2/FLU/RSV Today R09.89 - Other specified symptoms and signs involving the circulatory and respiratory systems Medications: New azithromycin Take 2 tablets today then 1 daily 250 mg PO ONCE 5 days 6 tabs 0RF J06.9 - Acute upper respiratory infection, unspecified azithromycin Take 2 tablets today then 1 daily 250 mg PO ONCE 5 days 6 tabs 0RF J06.9 - Acute upper respiratory infection, unspecified Discontinued tramadol Discontinued Reason: Doctor's Order 50 mg PO BEDTIME 15 days PRN 14 tabs 0RF pain diclofenac sodium Discontinued Reason: Doctor's Order 75 mg PO BID 15 days 30 tabs 0RF pain
[2024-03-31 13:01] VITALS: BP 120/74; PULSE 101; RESP 18; TEMP 37.3; O2SAT 97; BMI 24.5
--- OUTSIDE RECORDS SUMMARY | 2024-03-31 14:17 | XMS_ITS | Data Portability ---
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 Plan of Treatment Reminders Order Date Submit Date Provider Last Modified By Organization Details Last Modified Time Details Appointments None recorded. Lab streptococc us group A, culture, throat 2022 023 [place] [facility] ([facility], [address] [place], [address], 3 12:06:35 rapid strep group A, throat 2022 023 [email or web address], [address] [place], [address], 3 17:20:13 streptococc us group A, culture, throat [address], [address] [place], [address], 3 13:30:07 Referral None recorded. Procedures None recorded. Surgeries None recorded. Imaging None recorded. Medication Orders azithromyci n 250 mg tablet 2022 023 [id number], [address] [place], [address], 3 17:20:16 Patient TargetsNo targets recorded. Patient InstructionsNo instructions recorded. Reason for Referral None Reported. Results Created Date Observation Date Name Description Value Unit Range Abnormal Flag Note LastModifiedBy Organization Detail LastModifiedTime 03/13/1903/16/2022 BETA STREP GP A CULTU RE beta strep gp A culture NEGATI VE Refer ence Range : Negat deangelo Not Available [facility] ([facility]) [address] [facility], [place], [address], 03/16/2022 12:06:35 03/13/1903/13/2022 rapid strep group A, throa t Unknown Analyte Normal = Negati ve Not Available [address] [place], [address], 03/13/2022 16:37:24 03/13/1903/13/2022 rapid strep group A, throa t Unknown Analyte negati ve Not Available [address] [place], [address], 03/13/2022 16:37:24 Result Notes None recorded. Problems Name Problem SNOMED Code Status Onset Date Resolution Date Notes Provider Name and Address Organization Details Recorded Time Hyperlipidemia 79975138 Active 2022 GARDENIA Arenas [facility] 3 16:31:38 Problem Notes None recorded. Medical Equipment None Reported. Allergies Allergen ID Allergen Name Allergen Category Reaction Reaction Severity Criticality Documentation Date Start Date Code Code System Note Provider Name and Address Organization Details Recorded Time 696123 amoxicill in medicatio n Not available Not [...] height Body mass index (BMI) Body weight Pain severity - 0-10 verbal numeric rating [Score] - Reported Heart rate Oxygen saturation Oxygen saturation in Arterial blood by Pulse oximetry Respiratory rate Body temperature Systolic blood pressure Diastolic blood pressure Provider Name and Address Organization Details Last Updated DateTime 3 157.48 cm 23.8 kg/m2 37596.0 1 g 6 68 /min 99 % 99 % 18 /min 98.7 [degF] 130 mm[Hg] 80 mm[Hg] Kami Todd PA - [facility] 3 16:33:16 Social History Question Answer Notes LastModified by OrganFlintat ion Details LastModified Time Tobacco Smoking Status Never Smoker Kami valles PA - [facility] 03/13/2022 16:31:50 What Is Your Level Of Alcohol Consumption? None [email or web address] Information not available 03/13/2022 Do You Use Any Illicit Or Recreational Drugs? No [email or web address] Information not available 03/13/2022 Do You Or Have You Ever Used Any Other Forms Of Tobacco Or Nicotine? No [email or web address] Information not available 03/13/2022 Sex: Unknown Functional [...] SNOMED-CT Code Diagnosis ICD10 Code Diagnosis Note [id number] Bandar Ni [facility] SHRUTHI Johnson [address] 09/12/2021 08:42:07 09/12/2021 09:03:[id number] [place] [address] SHRUTHI Johnson [address] 12/21/2020 08:03:16 12/21/2020 09:16:57 [id number] Band[address] N[address] [place] [address] SHRUTHI Johnson [address] 06/28/2016 15:17:18 06/28/2016 16:05:30 [id number] [address] [place] [address] 09/13/2021 18:20:53 09/13/2021 19:38:27 [id number] Bandar Gresham [address] [place] [address] [place] [address] 11/29/2020 16:07:20 11/29/2020 17:06:12 [id number] Band[address] [place] [address] [place] [address] 10/14/2016 17:41:11 10/14/2016 18:07:37 [id number] FREDDY GUO MD [address] [place] [address] 03/13/2022 15:29:06 03/13/2022 17:21:51 Sore throat [id number] J02.9 Sore throatClea r liquids for comfortFre sh Helder Root Tea-Cut up fresh helder root and boil it till fragrant. drink the liquid as a tea. Can add Honey to taste. Also For Sore Throat:Thr oat Comfort Tea (by Yogi [employer])Thro at Coat Tea ( by [employer] ) Clear broth soup: Vegetable, Chicken or Beef as tolerated. Cervical lymphadenitis 7713139 I88.9 Health Concerns Section Related Observation LastModified by Organization Detai ls LastModified Time None Recorded Concern Status LastModified by Organization Details LastModified Time None Recorded Advance Directives Directive None Recorded Payers Encounter Date Sequence Insurance Name Policy Number Policy Marcum Covered Member ID Marcum Member ID Guarantor Name 11/29/[address] [facility] (MEDICAID HMO) GERMAIN Reillyarmin [id number] Purnima Reillyarmin 12/21/[address] [facility] (MEDICAID HMO) [place] Purnima Hank [id number] Purnimaaleta Reillyarmin 09/12/[address] [facility] (MEDICAID HMO) [place] Purnima Hank [id number] Purnimaaleta Reillyarmin 09/13/[address] [facility] (MEDICAID HMO) GERMAIN Reillyarmin [id number] Purnima Reillyarmin 03/13/[address] [facility] (MEDICAID HMO) GERMAIN Reillyarmin [id number] Purnima Reillyarmin Notes Date Note Type Note Provider Name and Address Organization Details Recorded Time 03/13/2022 text/html pt c/o right sided throat pain, fever, weakness x 3 days FREDDY GUO MD [address] [place], [address], [place] - [facility] 03/13/2022 17:34:02 OBGyn Episode No OBEpisode recorded.
== END 2024-03-31 13:45 | disposition home or self-care (01) ==
PROVIDERS: PCP Internal Medicine; Visit Provider Internal Medicine
DX: M54.16 Radiculopathy, lumbar region (principal); M51.26 Other intervertebral disc displacement, lumbar region; J02.9 Acute pharyngitis, unspecified; Z13.9 Encounter for screening, unspecified

== ENCOUNTER 2024-03-31 12:57 | Outpatient (REF) | payer OTHER, SELFPAY ==
[2024-03-31 18:01] LABS: Influenza A PCR POSITIVE (Negative); Influenza B PCR NEGATIVE (Negative); Resp Syncy Virus RNA Qual PCR NEGATIVE (Negative); SARS COV2 PCR INHOUSE NEGATIVE (Negative)
== END 2024-03-31 12:58 | disposition home or self-care (01) ==
LOC: HO.LNP 12:57
PROVIDERS: PCP Internal Medicine; Visit Provider Internal Medicine
DX: R09.89 Other specified symptoms and signs involving the circulatory and respiratory systems (principal); M54.16 Radiculopathy, lumbar region; M51.26 Other intervertebral disc displacement, lumbar region; J02.9 Acute pharyngitis, unspecified
CPT/HCPCS: 0241U; 87880; 99212

== ENCOUNTER 2024-06-09 08:00 | Outpatient (RCR) | payer OTHER, SELFPAY ==
--- NOTE | 2024-03-12 08:20 | MHC.PT.EP ---
[facility] [place] [facility] [place] [facility] [place] [facility] [address] Melida Wilson [address] [phone] F: [phone] F: [phone] F: [phone] F: [phone] Physical Therapy Plan of Care Date of Evaluation: 03/12/24 Date of Surgery: Diagnosis: This is a 53 yo female presenting to skilled PT with a script for low back pain. Assessment: This is a 53 yo female presenting to skilled PT with a script for low back pain. Patient reporting that at the end of Jan she was reaching down to reach something on a low shelf and felt excruciating pain in her low back. A few days later she was reaching down again at the grocery store and experienced pain and weakness in the L LE. Since then she has had back and leg symptoms. The back comes and goes but the leg has continued to have constant symptoms. Pain is located L side low back (sharp pain), radiates into the groin, medial leg, knee and gastroc (numbness). She denies changes to bowel and bladder. She has seen her PCP who prescribed her a range of medications including prednisone, tramadol, diclofenac and cyclobenzaprine as well as ordered x-rays of her knees and lumbar spine (decreased intervertebral disc height at L5-S1. Grade 1 anterolisthesis L4-5). MRI was also scheduled for 03/25/24. Pain increases with bending forward, LB dressing, driving, transfers out of car and out of bed, sleeping on the R and standing. Assessment reveals pain that ranges from up to a 9/10 at the worst. Patient demos decreased lumbar and L LE ROM, strength of core, back and L LE with noted atrophy in quad muscles, TTP at soft tissues surrounding L3-5, + s/s for disc herniation and associated SIJ involvement as well and impaired posture with forward head and rounded shoulders with decreased tolerance for transfers, stairs and ADLs. Based on functional limitations, impaired QOL and pain tolerance patient is a good candidate for skilled PT 2x/wk for 4wks (we will proceed with 1x/wk due to high copay). Frequency and Duration: The patient will be seen 2x/wk for 4wks Short Term Goals: Pt will demonstrate improved postural awareness and understanding of core engagement with supine and standing tasks without cues throughout session to improve overall back safety in 2 weeks. Pt will demonstrate centralization of sx in 2 weeks. Pt will continue to reinforce precautions, sitting, standing and ADL modifications with proper body mechanics in 2 wks. Admissions Clerk Goals: Pt will demonstrate improved outcome measure by 5 points in 4 weeks for improved functional mobility. Pt will demonstrate ability to bend and lift WNL min to no pain for household tasks in 4 wks. Pt will be I in HEP and compliant in 4wks Pt will be able to perform reciprocal gait on stairs in 4 wks Pt will demo equal LE ROM and strength in 4 wks Treatment Plan: Modalities to reduce pain, spasms and effusion. Manual therapy to restore motion and function. Therapeutic exercise to improve strength and flexibility. Neuromuscular re-education for posture and balance. Therapeutic activities to return to functional activities of daily living. Electronically signed by: Julia Kang Please sign and return to therapist. Thank you for your referral.
--- NOTE | 2024-07-13 12:33 | MHC.PT.DC ---
[facility] [place] Office [place] Office [place] Office [address] Melida Wilson [address] [phone] F: [phone] F: [phone] F: [phone] F: [phone] Physical Therapy Discharge Report Diagnosis: This is a 53 yo female presenting to skilled PT with a script for low back pain. Date of Surgery: Date of Evaluation: 03/12/24 Date of Discharge: 07/13/24 Treatments to Date: 9 Cancellations to Date: 0 No Shows to Date: 0 Discharge Status: Improved Function Independent with HEP Patient Elected to Stop Discharge Summary: 06/09; Pt I with HEP. She feels like massage is helpful and will be discontinuing PT at this time to pursue this. She is somewhat improved but her symptoms are still lingering. Recommended follow up with MD as needed. Electronically signed by: Mary Lombardi PT Please sign and return to therapist. Thank you for your referral.
== END 2024-07-13 12:33 | disposition home or self-care (01) ==
LOC: HO.PTCHIC 08:00
PROVIDERS: PCP Internal Medicine; Visit Provider Internal Medicine
DX: M54.16 Radiculopathy, lumbar region (principal); R20.2 Paresthesia of skin; Z91.81 History of falling
CPT/HCPCS: 97012; 97110; 97140; 97162

== ENCOUNTER 2024-09-29 08:32 | Outpatient (REF) | payer OTHER, SELFPAY ==
--- OUTSIDE RECORDS SUMMARY | 2024-09-29 08:44 | XMS_ITS | Clinical Summary ---
Author Organization [facility] Address [address] [place] [address] Phone Care Team Providers Care Web Services Architect Name Role Phone Ana Flores MD Primary Care Provider [phone] Allergies Active Allergy Reactions Criticality Noted Date Comments Amoxicillin 11/21/2023 Medications ferrous sulfate 324 mg (65 mg [place] iron) TbEC Take 1 tablet by mouth once a week. anemia 4 Active simvastatin (ZOCOR) 20 MG tablet Take 1 tablet by mouth every morning. 4 Active biotin, bulk, 100 % Powd by Miscellaneous route. Active estradioL (ESTRACE) 0.01 % (0.1 mg/gram) vaginal cream Place 1 g vaginally daily for 7 days, THEN 1 g 2 (two) times a week. 42.5 g 2 4 11/28/19 25 Active Active Problems Problem Noted Date Diagnosed Date Uterine prolapse 11/21/2023 Assessment & Plan (11/21/2023 4:54 PM EDT): She reports increasing prolapse which causes discomfort and self consciousness during sex with her . She can feel the tissue protruding out of the vagina when washing. On exam there is cervical descent beyond the hymen with valsalva. At rest it is a few cms above the hymen I reassure her that this is safe and common after childbearing, and encouraged first a trial of vaginal estrogen to see if this improves comfort with intercourse. I am also referring her to Urogyn for a consult on surgical correction. As her main complaint is symtpoms during sex, a pessary would not be appropriate Family History Medical History Relation Comments Hyperlipidemia Father Hyperlipidemia Mother Relation Status Comments Brother Alive Father Alive Maternal Grandfather Maternal Grandmother Mother Alive Paternal Grandfather Paternal Grandmother Social History Tobacco Use Types Packs/Day Years Used Date Smoking Tobacco: Never Smokeless Tobacco: Never Alcohol Use Standard Drinks/Week Comments Never 0 (1 standard drink = 0.6 oz pur e alcohol) Education Answer Date Recorded Are you interested in more education? Not on sangita e 09/08/2023 Are you concerned about learning? Not on file 09/08/2023 No 09/08/2023 No 09/08/2023 Digital Access Answer Date Recorded No 09/08/2023 No 09/08/2023 Reliable internet access at home? Not on file 09/08/2023 Device with a working camera? Not on file Comments Unknown Sex and Gender Information Value Date Recorded Sex Assigned at Not on file Legal Sex Female 10:33 AM EDT Gender Identity Not on file Sexual Orientation Not on file Last Filed Vital Signs Vital Sign Reading Time Taken Comments Blood Pressure 140/95 11/21/2023 3:40 PM EDT Pulse - - Temperature - - Respiratory Rate - - Oxygen Saturation - - Inhaled Oxygen Concentration - - Weight 58.5 kg (129 lb) 11/21/2023 3:40 PM EDT Height 154.9 cm (5' 1 ) 11/21/2023 3:40 PM EDT Body Mass Index 24.37 11/21/2023 3:40 PM EDT Plan of Treatment Health Maintenance Due Date Last Done Comments LIPID PANEL 1970 DEPRESSION SCREENING 1983 HEPATITIS C SCREENING 05/10/1989 HIV ONE-TIME SCREENING (18-6 5 YEARS) 05/10/1989 MAMMOGRAM 2011 COLOGUARD 05/10/2016 COLONOSCOPY 05/10/2016 COLORECTAL CANCER SCREENING 05/10/2016 FIT TEST 05/10/2016 FOBT 05/10/2016 SIGMOIDOSCOPY 05/10/2016 VIRTUAL COLONOSCOPY 05/10/2016 PNEUMOCOCCAL VACCINES (50+ years) (1 of 1 - PCV) 05/10/2021 ZOSTER VACCINES (1 of 2) 05/10/2021 Adult Td,Tdap Booster 01/22/2023 01/22/2013 COVID-19 VACCINE (2023-03 5 season) 2023 03/15/2021, 02/22/2021 PAP SMEAR 11/20/2026 11/21/2023 SMOKING STATUS SCREENING (On ce After 26 Yrs) Completed 11/21/2023 HEPATITIS A VACCINES Aged Out No long er eligible based on patient's age to complete this topic HIB VACCINES Aged Out No longer eligi ble based on patient's age to complete this topic MENINGOCOCCAL VACCINES (ACWY) Aged Out No longer eligible based on patient's age to complete this topic MENINGOCOCCAL VACCINES (B) Aged Out N o longer eligible based on patient's age to complete this topic Medical Devices Not on file Procedures Procedure Name Priority Date/Time Associated Diagnosis Comments PAP TEST Routine 11/21/2023 12:00 AM EDT from Last 3 Months or Most Recently Relevant to Health Maintenance Results * Pap Test (11/21/2023 12:00 AM EDT) 11/21/2023 11/24/2023 9:2 4 AM EDT Narrative SEE NARRATIVE - 11/26/2023 10:56 AM EDT [address] [address] Electric Range Assembler: Good Cabello MD REFRIGERATION PLANT OPERATOR Cytology Report FINAL DIAGNOSIS A. PAP SMEAR (THIN PREP) CE: SPECIMEN ADEQUACY: Satisfactory for evaluation; transformation zone present. INTERPRETATION: NEGATIVE FOR INTRAEPITHELIAL LESION OR MALIGNANCY. This specimen was analyzed by the automated ThinPrep Imaging System (Therative Paul.) and the selected pederson were reviewed by a joiner helper. Electronically Signed Out By: AYDEE Gregory(ASCP) The Pap test is a screening test primarily for squamous cancers and precursors and has associated false-negative and false-positive results. New technologies such as liquid-based preparations may decrease but will not eliminate all false-negative results. Regular sampling and follow-up of unexplained clinical signs and symptoms are recommended to minimize false negative results. PROCEDURES/ADDENDA HPV Testing (Requested) Ordered Date: 11/24/2023 A. PAP SMEAR (THIN PREP) CE: Human Papilloma Virus Test NEGATIVE for high-risk Human Papilloma Virus types 16, 18, 45 and the Other high risk probe set (Includes 31, 33, 35, 39, 51, 52, 56, 58, 59, 66, 68) Note: Testing performed by momondolarity HR-HPV analysis. Clinical correlation is advised. This HPV test was performed at [facility], [address] [place] [address]. This test has been FDA approved for both SurePath and ThinPrep cervical cytology specimens. The accuracy and precision of this test for all other specimen sources has been verified in the Cytopathology Laboratory of the [facility] and has not been cleared or approved by the U.S. Food and Drug Administration. Clinical correlation is advised. CLINICAL HISTORY Date of Last Menstrual Period: 09-16-2022 Menstrual History: Post Menopausal Other Clinical Conditions: Screening Pap SPECIMEN SOURCE A: PAP SMEAR (THIN PREP) CE Patient Name: SPENCER PEREZ : 1970 (Age: 53) Sex: F Institution: [facility] Location: [facility] Date of Collection: 11/21/2023 Date of Reported: 11/26/2023 10:56 Results to: Marcie Ortiz MD Marcie Ortiz MD CYTOLOGY ORDERABLES Final Result SEE NARRATIVE from Last 3 Months or Most Recently Relevant to Health Maintenance Insurance [facility] PCP ROSALINA WEBER CONNECTORCARE WELLSENSE NON NSPG PCP SILVER CLARITY CONNECTORCARE WELLSENSE NON NSPG PCP SILVER CLARITY CONNECTORCARE WELLSENSE NON NSPG PCP SILVER CLARITY CONNECTORCARE UNDERWOODENSE NON NSPG PCP SILVER CLARITY CONNECTORCARE [facility] NON NSPG PCP SILVER CLARITY CONNECTORCARE Care Teams Web Services Architect Relationship Specialty Start Date End Date Ana Flores MD [facility] [place] [address] PCP - General Internal Medicine 07/24/23 Additional Source Comments The information contained in this document represents components of the legal health record. It is not the complete legal health record.[facility]
[2024-09-29 10:37] LABS: MANUAL DIFF FLAG NO
[2024-09-29 10:46] LABS: Hematocrit 40.1 % (37.0-47.0); Hemoglobin 13.4 g/dl (12.0-16.0); Imm Gran Abs Auto 0.01 X10*3/uL (0.00-0.03); Imm Gran Pct Auto 0.1 % (0.0-0.4); Lymphocytes Absolute Auto 3.2 X10*3/uL (1.2-4.9); Mean Corpuscular HGB Conc 33.4 g/dl (31.0-35.0); Mean Corpuscular Hemoglobin 28.9 pg (27.0-33.0); Mean Corpuscular Volume 86.6 fL (80.0-98.0); NRBC Abs Auto 0.000 X10*3/uL (0.0-0.012); NRBC Pct Auto 0.0 /100WBC (0.0-0.2); Platelet Count 330 X10*3/uL (160-400); Red Blood Count 4.63 X10*6/uL (4.20-5.50); White Blood Count 7.4 X10*3/uL (4.8-10.8)
[2024-09-29 11:16] LABS: Alanine Aminotransferase 19 U/L (0-31); Albumin Level 4.5 g/dL (3.5-5.0); Alkaline Phosphatase 80 U/L (39-117); Anion Gap 13 (12-20); Aspartate Amino Transferase 54 U/L (5-31); Blood Urea Nitrogen 10 mg/dL (9-16); Calcium 9.1 mg/dL (8.4-10.2); Carbon Dioxide 25 mmol/L (22-29); Chloride 110 mmol/L (96-108); Cholesterol 218 mg/dL (<200); Estimated Glomerular Filt Rate > 60; Ferritin 76 ng/mL (10-250); HDL Cholesterol 58 mg/dL (>40); Potassium 4.1 mmol/L (3.3-5.1); Sodium 144 mmol/L (135-145); Total Protein 6.7 g/dL (6.5-8.0); Triglycerides 142 mg/dL (<150)
== END 2024-09-29 08:33 | disposition home or self-care (01) ==
LOC: HO.HMGCLDS 08:32
PROVIDERS: PCP Internal Medicine; Visit Provider Internal Medicine
DX: R79.89 Other specified abnormal findings of blood chemistry (principal); E78.9 Disorder of lipoprotein metabolism, unspecified
CPT/HCPCS: 36415; 80053; 80061; 82728; 85025

== ENCOUNTER 2024-10-01 09:35 | Outpatient (AMB) | payer OTHER, SELFPAY ==
[2024-10-01 09:37] VITALS: BP 118/72; PULSE 82; O2SAT 98; BMI 24.1
--- NOTE | 2024-10-01 09:37 | A.OFFPC_ITS ---
Vital Signs 10/01/24 09:37 Height 5 ft 2 in Weight 132 lb BMI 24.1 BP 118/72 Blood Pressure Location Lt brachial Position Sitting Pulse 82 Pulse Source Pulse Oximeter Pulse Oximetry (%) 98 Intake Visit Reasons: Annual PE Allergies amoxicillin (AMOXICILLIN) Allergy (Unknown, Verified 10/01/24 09:38) RASH Medication List - Last Reconciled 10/01/24 by Ana Flores MD biotin 10,000 mg PO DAILY cromolyn 4% 1 drp ophthalmic (eye) QID 30 days loratadine 10 mg PO DAILY PRN simvastatin 20 mg PO DAILY 90 days Tobacco use date assessed: 03/31/24 Dental Screening Dental Screen Date: 03/09/24 HPI Annual PE HPI Details History of Present Illness The patient is a 54-year-old female presenting for annual physical examination Chronic Low Back Pain: - Reports stiffness but manageable - The issue is aggravated by bending for cortes . - Denies the use of muscle relaxers desp ite occasional pain relief need. - Engages in regular stretching and home exercises which have provided some relief. Hyperlipidemia: - LDL levels increased from 108 in Janua ry to 132, concurrent with a diet high in desserts. Rotator Cuff Tendinopathy: Right - Reports shoulder pain that started eva und eight years ago linked to lifting boxes. - would like to see an orthopedic for ev aluation Medical History: - Hyperlipidemia - Chronic Low Back Pain - Rotator Cuff Tendinopathy right - Elevated AST stable Health Maintenance - Discussion regarding overdue mammograp hy screening. - Simvastatin use monitored. - Recommendation to maintain diet contro l for cholesterol management. - AST & cholesterol levels to be re-eval uated in six months. - Consideration of shingles vaccination discussed. - patient Deferred colorectal cancer scr eening by opting for Cologuard. [facility] for [facility] appointments. - Potential referral to [email or web address] for FRONT EDGER care. 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 - Currently unemployed or not stated emp loyment status during visit. Patient Instructions - Schedule a mammogram at [facility]. - Engage with potential new FRONT EDGER close r to [place]. - Continue stretching exercises for back pain management. - Maintain diet control to manage hyperl ipidemia. - Monitor for any worsening shoulder raman n and consider visiting a medial activities specialist. - Undergo fasting blood tests in six mon ths to check liver function. Review of Systems - General: No fever no chills - Neurological: No headaches no dizzin ess - Ear nose throat: No sore throat no hearing difficulty no ear pain - Cardiovascular: No syncope, no chest pain, no palpitations - Gastrointestinal: No nausea vomiting or diarrhea - Endocrine: No polyuria polydipsia no heat intolerance - Genitourinary: No dysuria - Skin: No new complaints Physical Exam General: Cooperative, healthy appearing, comfortable, no acute distress Orientation: Patient oriented x3 Head: Normal to inspection Ears: Within normal limit visually Nose: Normal external nose present Face and sinus: Normal facial exam Eyes: Appearance normal, extraocular movement intact pupils reactive Neck: Normal visual inspection and supple, no lymph nodes in the neck Respiratory: Normal respiratory effort and able to speak in complete sentences. Clear to auscultation, no stridor Cardiovascular: S1 and S2 RRR Breast exam benign GI: Normal to inspection. Soft to palpation and nontender, no pain in the abdomen with palpation Skin: Turgor normal, no acute findings Neuro: Patient oriented x3, motor sensory intact, balance intact, tandem pass Extremities: Normal to inspection, right shoulder tender over rotator cuff with pressure, range of motion intact but with soreness PFSH Medical History Urinary tract infection Surgical History No pertinent past surgical history Family History Other No family history of cancer Social History Household Members: Spouse Housing: House Are you a primary physician assistant primary care to a significant other at home: No Do you presently have visiting nurse or other home services: No Patient Tobacco Use Status: Never used Tobacco e-Cigarette/Vaping Use: Never Used service: No Current occupational status: employed Cognitive needs: No Hearing needs: No Vision needs: No Questionnaire Thrive Questionnaire Date Thrive assessed: 02/25/24 I am a: Patient What is your living situation today?: I have a steady place to live Within the past 12 months, did the food you bought not last and you didn't have the money to get more?: Never true Within the past 12 months, did you worry whether your food would run out before you got money to buy more?: Never true Do you have trouble paying for medicines?: No Do you have trouble getting transportation to medical appointments?: No Do you have trouble paying your heating and electricity bill?: No Do you have trouble taking care of your child, family member or friend?: Yes Do you have trouble with day-to-day activities such as bathing, preparing meals, shopping, managing finances, etc.?: Yes Are you currently unemployed and looking for a job?: No Are you interested in more education?: No Please select the resources that you would like help with: None Currently or been in a relationship where the following occur: No concerns reported THRIVE Score: 0 LANNY-7 AMB Questionnaire LANNY-7 Date LANNY - 7 assessed: 03/09/24 Source: Developed by Drs. Cesar Santamaria, Mali Champion, Cal Lomeli and colleagues, with an educational leola from [employer]. Physical exam (Primary Care) Vital Signs: Last Vital Signs Pulse 82 10/01/24 09:37 BP 118/72 10/01/24 09:37 Pulse Ox 98 10/01/24 09:37 BMI result Body Mass Index 24.1 Tobacco/Smoking Status: Tobacco use Status Tobacco use date assessed 03/31/24 10/01/24 09:42 Patient Tobacco Use Status Never used Tobacco 10/01/24 09:42 e-Cigarette/Vaping Use Never Used 10/01/24 09:42 Thrive Assessment: Date of Thrive Assessment Date Thrive assessed 02/25/24 10/01/24 09:42 Currently or been in a relationship where the following occur: No concerns reported Coding Level of Care Code Est Pt Level 3 (71439) Est Pt Prev Care 40-64y(65516) Diagnoses Encounter for general adult medical examination with abnormal findings Z00.01 Chronic right shoulder pain M25.511; G89.29 Chronicity: chronic Lipid disorder E78.9 Left lumbar radiculitis M54.16 LFT elevation R79.89 Assessment & Plan Assessment & Plan (1) Encounter for general adult medical examination with abnormal findings: Code(s): Z00.01 - Encounter for general adult medical examination with abnormal findings Category: Medical (2) Right shoulder pain: Code(s): M25.511 - Pain in right shoulder Category: Medical Qualifiers: Chronicity: chronic Qualified Code(s): M25.511 - Pain in right shoulder; G89.29 - Other chronic pain (3) Lipid disorder: Code(s): E78.9 - Disorder of lipoprotein metabolism, unspecified Category: Medical (4) Left lumbar radiculitis: Code(s): M54.16 - Radiculopathy, lumbar region Category: Medical (5) LFT elevation: Code(s): R79.89 - Other specified abnormal findings of blood chemistry Category: Medical Plan History of Present Illness The patient is a 54-year-old female presenting for annual physical examination Chronic Low Back Pain: - Reports stiffness but manageable - The issue is aggravated by bending forward . - Denies the use of muscle relaxers despite occasional pain relief need. - Engages in regular stretching and home exercises which have provided some relief. Hyperlipidemia: - LDL levels increased from 108 in February to 132, concurrent with a diet high in desserts. Rotator Cuff Tendinopathy: Right - Reports shoulder pain that started around eight years ago linked to lifting boxes. - would like to see an orthopedic for evaluation Medical History: - Hyperlipidemia - Chronic Low Back Pain - Rotator Cuff Tendinopathy right - Elevated AST stable Health Maintenance - Discussion regarding overdue mammography screening. - Simvastatin use monitored. - Recommendation to maintain diet control for cholesterol management. - AST & cholesterol levels to be re-evaluated in six months. - Consideration of shingles vaccination discussed. - patient Deferred colorectal cancer screening by opting for Cologuard. [facility] for mammogram appointments. - Potential referral to [email or web address] for FRONT EDGER care. 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 - Currently unemployed or not stated employment status during visit. Patient Instructions - Schedule a mammogram at [facility]. - Engage with potential new FRONT EDGER closer to [place]. - Continue stretching exercises for back pain management. - Maintain diet control to manage hyperlipidemia. - Monitor for any worsening shoulder pain and consider visiting a medial activities specialist. - Undergo fasting blood tests in six months to check liver function. Orders: Orders Comprehensive [place]. Panel Fast 6 Months E78.9 - Disorder of lipoprotein metabolism, unspecified Lipid Panel 6 Months E78.9 - Disorder of lipoprotein metabolism, unspecified MM tomosynthesis screening BI Today Z12.31 - Encounter for screening mammogram for malignant neoplasm of breast Referrals FRONT EDGER Referral Z01.419 - Encounter for gynecological examination (general) (routine) without abnormal findings Orthopedics Referral M25.511 - Pain in right shoulder
--- OUTSIDE RECORDS SUMMARY | 2024-10-01 09:43 | XMS_ITS | Clinical Summary ---
Author Organization [facility] Address [address] [place] [address] Phone Care Team Providers Care Station Baggage Agent Name Role Phone Ana Flores MD Primary Care Provider [phone] Allergies Active Allergy Reactions Criticality Noted Date Comments Amoxicillin 11/21/2023 Medications ferrous sulfate 324 mg (65 mg [place] iron) TbEC Take 1 tablet by mouth [...] SEE NARRATIVE - 11/26/2023 10:56 AM EDT [address] [address] Chicken Cleaner: Good Cabello MD DEVELOPMENTAL BEHAVIORAL PHYSICIAN Cytology Report FINAL DIAGNOSIS A. PAP SMEAR (THIN PREP) CE: SPECIMEN ADEQUACY: Satisfactory for evaluation; transformation zone present. INTERPRETATION: NEGATIVE FOR INTRAEPITHELIAL LESION OR MALIGNANCY. This specimen was analyzed by the automated ThinPrep Imaging System ([employer] Paul.) and the selected pederson were reviewed by a single stroke preformer. Electronically Signed Out By: AYDEE Gregory(ASCP) The [...] 59, 66, 68) Note: Testing performed by [facility] HR-HPV analysis. Clinical correlation is advised. This HPV test was performed at [facility], [address] [place] [address]. This test has been FDA approved for both SurePath and ThinPrep cervical cytology specimens. The accuracy and precision of this test for all other specimen sources has been verified in the Cytopathology Laboratory of the [facility] and has not been cleared or approved by the U.S. Food and Drug Administration. Clinical correlation is advised. CLINICAL HISTORY Date of Last Menstrual Period: 09-16-2022 Menstrual History: Post Menopausal Other Clinical Conditions: Screening Pap SPECIMEN SOURCE A: PAP SMEAR (THIN PREP) CE Patient Name: SPENCER PEREZ : 1970 (Age: 53) Sex: F Institution: [facility] Location: [facility] Date of Collection: 11/21/2023 Date of Reported: 11/26/2023 10:56 Results to: Marcie Ortiz MD Marcie Ortiz MD CYTOLOGY ORDERABLES Final Result SEE NARRATIVE from Last 3 Months or Most Recently Relevant to Health Maintenance Insurance [facility] PCP ROSALINA WEBER CONNECTORCARE [employer] NON NSPG PCP SILVER CLARITY CONNECTORCARE WELLSENSE NON NSPG PCP SILVER CLARITY CONNECTORCARE WELLSENSE NON NSPG PCP SILVER CLARITY CONNECTORCARE [employer] NON NSPG PCP SILVER CLARITY CONNECTORCARE [facility] NON NSPG PCP SILVER CLARITY CONNECTORCARE Care Teams Station Baggage Agent Relationship Specialty Start Date End Date Ana Flores MD [facility] [place] [address] PCP - General Internal Medicine 07/24/23 Additional Source Comments The information contained in this document represents components of the legal health record. It is not the complete legal health record.[facility]
== END 2024-10-01 10:14 | disposition home or self-care (01) ==
LOC: HO.HMCC 09:35
PROVIDERS: PCP Internal Medicine; Visit Provider Internal Medicine
DX: Z00.01 Encounter for general adult medical examination with abnormal findings (principal); M25.511 Pain in right shoulder; G89.29 Other chronic pain; E78.9 Disorder of lipoprotein metabolism, unspecified; M54.16 Radiculopathy, lumbar region; R79.89 Other specified abnormal findings of blood chemistry

== ENCOUNTER → 2024-10-01 09:35 | Outpatient (BNVA) | payer OTHER, SELFPAY | PROVIDERS: PCP Internal Medicine; Visit Provider Internal Medicine | DX: Z00.01 Encounter for general adult medical examination with abnormal findings (principal); E78.5 Hyperlipidemia, unspecified; M25.511 Pain in right shoulder; G89.29 Other chronic pain; E78.9 Disorder of lipoprotein metabolism, unspecified; M54.16 Radiculopathy, lumbar region; R79.89 Other specified abnormal findings of blood chemistry | CPT/HCPCS: 99212; 99396 ==

== ENCOUNTER 2024-12-02 12:22 | Outpatient (REF) | payer OTHER, SELFPAY ==
--- OUTSIDE RECORDS SUMMARY | 2024-12-02 15:33 | XMS_ITS | Data Portability ---
Author Organization [facility], [address] Address [address] [place] [address] Care Team Providers Care Barrel Plater Name Role Phone CASPER FAITH Primary Care Provider [phone] Assessment No assessment recorded. Plan of Treatment Reminders Order Date Submit Date Provider Last Modified By Organization Details Last Modified Time Details Appointments None recorded. Lab streptococc us group A, culture, throat 2022 023 [facility] ([facility], [address] [place], [address], 3 12:06:35 rapid strep group A, throat 2022 023 [email or web address] [facility] [address], [address] [place], [address], 3 17:20:13 streptococc us group A, culture, throat 2022 023 [email or web address] [facility], [address] [place], [address], 3 13:30:07 Referral None recorded. Procedures None recorded. Surgeries None recorded. Imaging None recorded. Medication Orders azithromyci n 250 mg tablet 2022 023 [id number], [address] [place], [address], 3 17:20:16 Patient TargetsNo targets recorded. Patient InstructionsNo instructions recorded. Reason for Referral None Reported. Results Created Date Observation Date Name Description Value Unit Range Abnormal Flag Note LastModifiedBy Organization Detail LastModifiedTime 03/13/19 23 03/16/2022 BETA STREP GP A CULTU RE beta strep gp A culture NEGATI VE Refer ence Range : Negat deangelo Not Available [facility] ([facility]) [address], [place], [address], 03/16/2022 12:06:35 03/13/1903/13/2022 rapid strep group A, throa t Unknown Analyte Normal = Negati ve Not Available [address] [place], [address], 03/13/2022 16:37:24 03/13/1903/13/2022 rapid strep group A, throa t Unknown Analyte negati ve Not Available [address] [place], [address], 03/13/2022 16:37:24 Result Notes None recorded. Problems Name Problem SNOMED Code Status Onset Date Resolution Date Notes Provider Name and Address Organization Details Recorded Time Hyperlipidemia 81587334 Active 2022 [facility] 3 16:31:38 Problem Notes None recorded. Medical Equipment None Reported. Allergies Allergen ID Allergen Name Allergen Category Reaction Reaction Severity Criticality Documentation Date Start Date Code Code System Note Provider Name and Address Organization Details Recorded Time 236820 amoxicill in medicatio n Not available Not [...] Pulse oximetry Respiratory rate Body temperature Systolic And Diastolic Provider Name and Address Organization Details Last Updated DateTime 3 157.48 cm 23.8 kg/m2 74482.0 1 g 6 68 /min 99 % 99 % 18 /min 98.7 [degF] 130/80 mm[Hg] Kami Todd PA - [facility] 3 16:33:16 Social History None recorded. Functional Status Question Answer Note LastModified by Organizat ion Details LastModified Time Do you use any illicit or recreational drugs? No [email or web address] Information not available 03/13/2022 Do you or have you ever used any other forms of tobacco or nicotine? No [email or web address] Information not available 03/13/2022 What is your level of alcohol consumption? None [email or web address] Information not available 03/13/2022 Mental Status None recorded. Family History Nothing [...] mcg/0.3 mL dose, fahad-sucrose 2 completed Kami valles, PA - [facility] 03/13/2022 16:30:51 Td (adult), 5 Lf tetanus toxoid, preservative free, adsorbed 3 completed Kami valles PA - [facility] 03/13/2022 16:30:51 Influenza, split virus, quadrivalent, preservative 7 completed Kami valles PA - [facility] 03/13/2022 16:30:51 Past Encounters Encounter ID Performer Location Encounter Start Date Encounter Closed Date Diagnosis/Indication Diagnosis SNOMED-CT Code Diagnosis ICD10 Code Diagnosis IMO Codes Diagnosis Note [id number] [address] [place] [address] 09/12/2021 08:42:07 09/12/2021 09:03:51 [id number] [address] [place] [address] 12/21/2020 08:03:16 12/21/2020 09:16:57 [id number] [address] [place] [address] 06/28/2016 15:17:18 06/28/2016 16:05:30 [id number] [address] [place] [address] 09/13/2021 18:20:53 09/13/2021 19:38:27 [id number] [address] [place] [address] 11/29/2020 16:07:20 11/29/2020 17:06:12 [id number] [address] [place] [address] 10/14/2016 17:41:11 10/14/2016 18:07:37 [id number] FREDDY GUO MD [address] [place] [address] 03/13/2022 15:29:06 03/13/2022 17:21:51 Sore throat 070221451 J02.9 Sore throatClea r liquids for comfortFre sh Helder Root Tea-Cut up fresh helder root and boil it till fragrant. drink the liquid as a tea. Can add Honey to taste. Also For Sore Throat:Thr oat Comfort Tea (by [employer])Thro at Coat Tea ( by [employer] ) Clear broth soup: Vegetable, Chicken or Beef as tolerated. Cervical lymphadenitis [id number] I88.9 Health Concerns Section Related Observation LastModified by Organization Detai ls LastModified Time None Recorded Concern Status LastModified by Organization Details LastModified Time None Recorded Advance Directives Directive None Recorded Payers Insurance Date Sequence Insurance Name Policy Number Policy Marcum Covered Member ID Marcum Member ID Guarantor Name 03/13/2022 1 [facility] PL[facility] (MEDICAID HMO) [id number] Reillyjennifer [id number] Purnima Hank Notes Date Note Type Note Provider Name and Address Organization Details Recorded Time 03/13/2022 text/html pt c/o right sided throat pain, fever, weakness x 3 days FREDDY GUO MD [address] [place], [address], PA - [facility] 03/13/2022 17:34:02 OBGyn Episode No OBEpisode recorded.
--- OUTSIDE RECORDS SUMMARY | 2024-12-02 15:33 | XMS_ITS | Clinical Summary ---
Author Organization [facility] Address [address] [place] [address] Phone Care Team Providers Care Crib Clerk Name Role Phone Ana Flores MD Primary Care Provider Allergies Active Allergy Reactions Criticality Noted Date Comments Amoxicillin 11/21/2023 Medications ferrous sulfate 324 mg (65 mg [place] iron) TbEC Take 1 tablet by mouth [...] times a week. 42.5 g 2 4 025 Active Problems Problem Noted Date Diagnosed Date [...] 2) 05/10/2021 Adult Td,Tdap Booster 01/22/2023 01/22/2013 INFLUENZA VACCINE (#1) 2024 01/15/2017 COVID-19 VACCINE (3 - 2024-2 6 season) 2024 03/15/2021, 02/22/2021 PAP SMEAR 11/20/2026 11/21/2023 RSV VACCINE (1 - 1-dose 75+ series) 05/10/2046 SMOKING STATUS SCREENING (On ce After 26 [...] * Pap Test (11/21/2023 12:00 AM EDT) Report [address] [address] Business Area Director: Good Cabello MD FLASK HANDLER Cytology Report FINAL DIAGNOSIS A. PAP SMEAR (THIN PREP) CE: SPECIMEN ADEQUACY: Satisfactory for evaluation; transformation zone present. INTERPRETATION: NEGATIVE FOR INTRAEPITHELIAL LESION OR MALIGNANCY. This specimen was analyzed by the automated ThinPrep Imaging System ([employer] Paul[employer] and the selected pederson were reviewed by a conveyor monitor. Electronically Signed Out By: AYDEE Gregory(ASCP) The [...] 59, 66, 68) Note: Testing performed by [facility] HR-HPV analysis. Clinical correlation is advised. This HPV test was performed at [address] This test has been FDA approved for both SurePath and ThinPrep cervical cytology specimens. The accuracy and precision of this test for all other specimen sources has been verified in the Cytopathology Laboratory of the [facility] and has not been cleared or approved by the U.S. Food and Drug Administration. Clinical correlation is advised. CLINICAL HISTORY Date of Last Menstrual Period: 09-16-2022 Menstrual History: Post Menopausal Other Clinical Conditions: Screening Pap SPECIMEN SOURCE A: PAP SMEAR (THIN PREP) CE Patient Name: SPENCER PEREZ : 1970 (Age: 53) Sex: F Institution: [facility] Location: [facility] Date of Collection: 11/21/2023 Date of Reported: 11/26/2023 10:56 Results to: Marcie Ortiz MD [facility] Final Diagnosis A. PAP SMEAR (THIN PREP) CE: SPECIMEN ADEQUACY: Satisfactory for evaluation; transformation zone present. INTERPRETATION: NEGATIVE FOR INTRAEPITHELIAL LESION OR MALIGNANCY. This specimen was analyzed by the automated ThinPrep Imaging System ([employer] and the selected pederson were reviewed by a conveyor monitor. [facility] Results\Inter pretation A. PAP SMEAR (THIN PREP) CE: Human Papilloma Virus TestNEGATIVE for high-risk Human Papilloma Virus types 16, 18, 45 and the Other high risk probe set (Includes 31, 33, 35, 39, 51, 52, 56, 58, 59, 66, 68)Note: Testing performed by [employer] HR-HPV analysis. Clinical correlation is advised. This HPV test was performed at [address] This test has been FDA approved for both SurePath and ThinPrep cervical cytology specimens. The accuracy and precision of this test for all other specimen sources has been verified in the Cytopathology Laboratory of the [facility] and has not been cleared or approved by the U.S. Food and Drug Administration. Clinical correlation is advised. [facility] Conversion Type 11/21/2023 9:24 AM EDT Marcie Ortiz MD CYTOLOGY ORDERABLES Edited Result - Final [facility] [address] [place] [address] from Last 3 Months or Most Recently Relevant to Health Maintenance Insurance NON NSPG PCP SILVER CLARITY CONNECTORCARE [facility] NON NSPG PCP SILVER CLARITY CONNECTORCARE [employer] NON NSPG PCP SILVER CLARITY CONNECTORCARE [employer]IV[employer] NON NSPG PCP SILVER CLARITY CONNECTORCARE [employer] NON NSPG PCP SILVER CLARITY CONNECTORCARE [facility] NON NSPG [facility] Care Teams Crib Clerk Relationship Specialty Start Date End Date Ana Flores MD [facility] [place] [address] PCP - General Internal Medicine 07/24/23 Additional Source Comments The information contained in this document represents components of the legal health record. It is not the complete legal health record.[facility]
== END 2024-12-02 12:23 | disposition home or self-care (01) ==
LOC: HO.MAMMO 12:22
PROVIDERS: PCP Internal Medicine; Visit Provider Internal Medicine
DX: Z12.31 Encounter for screening mammogram for malignant neoplasm of breast (principal)
CPT/HCPCS: 77063; 77067

== ENCOUNTER → 2024-12-02 12:45 | Outpatient (BNV) | payer OTHER, SELFPAY | PROVIDERS: PCP Internal Medicine; Visit Provider Radiology Body Imaging | DX: Z12.31 Encounter for screening mammogram for malignant neoplasm of breast (principal) | CPT/HCPCS: 77063; 77067 ==

== ENCOUNTER → 2024-12-13 11:30 | Outpatient (BNV) | payer OTHER, SELFPAY | PROVIDERS: PCP Internal Medicine; Visit Provider Radiology Body Imaging | DX: N64.89 Other specified disorders of breast (principal) | CPT/HCPCS: 76642; 77065; G0279 ==

== ENCOUNTER 2024-12-13 11:37 | Outpatient (REF) | payer OTHER, SELFPAY ==
--- NOTE | ~2024-12-13 | MM_ITS ---
EXAMINATION(S): 1. MM DIAGNOSTIC DIGITAL BREAST TOMOSYNTHESIS, RIGHT 2. Targeted ultrasound of the right breast CLINICAL INFORMATION: Callback from screening for 2 adjacent focal asymmetries in the upper outer quadrant of the right breast on the baseline screening mammogram. COMPARISON: December 02, 2024 TECHNIQUE: Digital breast tomosynthesis is performed in full field ML 90 degrees along with computer-aided detection (CAD). Synthesized 2D images are generated from the tomosynthesis. Spot compression tomosynthesis were obtained. FINDINGS: BREAST COMPOSITION: There are scattered areas of fibroglandular density. RIGHT BREAST: Redemonstration of previously seen 2 adjacent 0.4-0.5 cm masses in the upper outer quadrant at approximately 7.5 cm from the nipple (spot MLO 15/, spot CC 28/). Targeted ultrasound of the right breast was performed at the location of the mammographic finding. The survey shows 2 adjacent benign-appearing lymph nodes, with normal cortical thickness, measuring 0.5 x 0.3 x 0.4 cm and 0.6 x 0.3 x 0.4 cm at 10 o'clock position at 8 cm from the nipple. Hilar vasculature was demonstrated with color Doppler evaluation. They correlate with the mammographic finding. MM/MM tomosynthesis added views R IMPRESSION: RIGHT BREAST: 2 adjacent benign-appearing lymph nodes at 10 o'clock position. Benign, no mammographic evidence of malignancy. Normal interval follow-up is recommended in 12 months. ASSESSMENT: BI-RADS: Category 2: Benign RECOMMENDATION: 1 year F/U Results were provided to the patient at time of visit by the technologist. This patient's information was entered into a reminder system with a target due date for their next mammogram. Electronically signed by: Lucio Hensley MD 12/13/2024 12:35 PM EDT
--- OUTSIDE RECORDS SUMMARY | 2024-12-13 15:01 | XMS_ITS | Clinical Summary ---
Author Organization [facility] Address [address] [place] [address] Phone Care Team Providers Care Dairy Technologist Name Role Phone Ana Flores MD Primary Care Provider [phone] Allergies Active Allergy Reactions Criticality Noted Date Comments Amoxicillin 11/21/2023 Medications ferrous sulfate 324 mg (65 mg mary's igloo iron) TbEC Take 1 tablet by mouth [...] Pap Test (11/21/2023 12:00 AM EDT) Report [address] [address] Cook Night: Good Cabello MD ASSISTANT NURSE MANAGER Cytology Report FINAL DIAGNOSIS A. PAP SMEAR (THIN PREP) CE: SPECIMEN ADEQUACY: Satisfactory for evaluation; transformation zone present. INTERPRETATION: NEGATIVE FOR INTRAEPITHELIAL LESION OR MALIGNANCY. This specimen was analyzed by the automated ThinPrep Imaging System ([employer] Paul.) and the selected pederson were reviewed by a solutions sales consultant. Electronically Signed Out By: AYDEE Gregory(ASCP) The [...] 59, 66, 68) Note: Testing performed by [employer] HR-HPV analysis. Clinical correlation is advised. This HPV test was performed at [address] This test has been FDA approved for both SurePath and ThinPrep cervical cytology specimens. The accuracy and precision of this test for all other specimen sources has been verified in the Cytopathology Laboratory of the [facility] and has not been cleared or approved by the U.S. Food and Drug Administration. Clinical correlation is advised. CLINICAL HISTORY Date of Last Menstrual Period: 09-16-2022 Menstrual History: Post Menopausal Other Clinical Conditions: Screening Pap SPECIMEN SOURCE A: PAP SMEAR (THIN PREP) CE Patient Name: SPENCER PEREZ : 1970 (Age: 53) Sex: F Institution: [facility] Location: [facility] Date of Collection: 11/21/2023 Date of Reported: 11/26/2023 10:56 Results to: Marcie Ortiz MD [facility] Final Diagnosis A. PAP SMEAR (THIN PREP) CE: SPECIMEN ADEQUACY: Satisfactory for evaluation; transformation zone present. INTERPRETATION: NEGATIVE FOR INTRAEPITHELIAL LESION OR MALIGNANCY. This specimen was analyzed by the automated ThinPrep Imaging System (RE2.) and the selected pederson were reviewed by a solutions sales consultant. [facility] Results\Inter pretation A. PAP SMEAR (THIN PREP) CE: Human Papilloma Virus TestNEGATIVE for high-risk Human Papilloma Virus types 16, 18, 45 and the Other high risk probe set (Includes 31, 33, 35, 39, 51, 52, 56, 58, 59, 66, 68)Note: Testing performed by [employer] HR-HPV analysis. Clinical correlation is advised. This HPV test was performed at [address] This test has been FDA approved for both SurePath and ThinPrep cervical cytology specimens. The accuracy and precision of this test for all other specimen sources has been verified in the Cytopathology Laboratory of the [facility] and has not been cleared or approved by the U.S. Food and Drug Administration. Clinical correlation is advised. [facility] Conversion Type (Conversion Source) 11/21/2023 11/24/2023 9:24 AM EDT Marcie Ortiz MD CYTOLOGY ORDERABLES Edited Result - Final [facility] [address] [place] [address] from Last 3 Months or Most Recently Relevant to Health Maintenance [place] [id number] NON NSPG PCP SILVER [employer]ARITY [facility] NON NSPG PCP S[employer]VER [employer]ITY [employer] [place] NON NSPG PCP SILVER [employer]ARITY [facility] NON NSPG PCP SILVER [employer]ITY [employer] [place] NON NSPG PCP S[employer]ITY [facility] NON NSPG PCP [facility] Care Teams Dairy Technologist Relationship Specialty Start Date End Date Ana Flores MD [address] [place] [address] PCP - General Internal Medicine 07/24/23 Additional Source Comments The information contained in this document represents components of the legal health record. It is not the complete legal health record.[facility]
== END 2024-12-13 11:38 | disposition home or self-care (01) ==
LOC: HO.MAMMO 11:37
PROVIDERS: PCP Internal Medicine; Visit Provider Internal Medicine
DX: N64.89 Other specified disorders of breast (principal)
CPT/HCPCS: 76642; 77061; 77065

== ENCOUNTER 2024-12-21 07:50 | Outpatient (AMB) | payer OTHER, SELFPAY ==
--- OUTSIDE RECORDS SUMMARY | 2024-12-21 07:52 | XMS_ITS | Data Portability ---
Author Organization [facility], [address] Address [address] [place] [address] Care Team Providers Care Psychiatric Social Worker Supervisor Name Role Phone CASPER FAITH Primary Care Provider Assessment No assessment recorded. Plan of Treatment Reminders Order Date Submit Date Provider Last Modified By Organization Details Last Modified Time Details Appointments None recorded. Lab streptococc us group A, culture, throat 2022 023 [place] [facility] ([facility], [address] [place], [address], 3 12:06:35 rapid strep group A, throat 2022 023 [email or web address] [facility] [address], [address] [place], [address], 3 17:20:13 streptococc us group A, culture, throat 2022 023 [email or web address] [facility], [address] [place], [address], 3 13:30:07 Referral None recorded. Procedures None recorded. Surgeries None recorded. Imaging None recorded. Medication Orders azithromyci n 250 mg tablet 2022 023 [id number], [address] [place], [address], 3 17:20:16 Patient TargetsNo targets recorded. Patient InstructionsNo instructions recorded. Reason for Referral None Reported. Results Created Date Observation Date Name Description Value Unit Range Abnormal Flag Note LastModifiedBy Organization Detail LastModifiedTime 03/13/19 23 03/16/2022 BETA STREP GP A CULTU RE beta strep gp A culture NEGATI VE Refer ence Range : Negat deangelo Not Available [facility] ([facility]) [address], [place], [address], 03/16/2022 12:06:35 03/13/1903/13/2022 rapid strep group A, throa t Unknown Analyte Normal = Negati ve Not Available [address] [place], [address], 03/13/2022 16:37:24 03/13/1903/13/2022 rapid strep group A, throa t Unknown Analyte negati ve Not Available [address] [place], [address], 03/13/2022 16:37:24 Result Notes None recorded. Problems Name Problem SNOMED Code Status Onset Date Resolution Date Notes Provider Name and Address Organization Details Recorded Time Hyperlipidemia 75181022 Active 2022 [facility] 3 16:31:38 Problem Notes None recorded. Medical Equipment None Reported. Allergies Allergen ID Allergen Name Allergen Category Reaction Reaction Severity Criticality Documentation Date Start Date Code Code System Note Provider Name and Address Organization Details Recorded Time 251807 amoxicill in medicatio n Not available Not [...] Updated DateTime 3 157.48 cm 23.8 kg/m2 77111.0 1 g 6 68 /min 99 % 99 % 18 /min 98.7 [degF] 130/80 mm[Hg] Kami Todd PA - [facility] 3 16:33:16 Social History None recorded. Functional Status Question Answer Note LastModified by Organizat ion Details LastModified Time Do you use any illicit or recreational drugs? No [email or web address] Information not available 03/13/2022 Do you or have you ever used any other forms of tobacco or nicotine? No [email or web address] Information not available 03/13/2022 What is your level of alcohol consumption? None [email or web address] Information not available 03/13/2022 Mental Status None [...] ICD10 Code Diagnosis IMO Codes Diagnosis Note [id number] [address] [place] [address] 09/12/2021 08:42:07 09/12/2021 09:03:51 [id number] [address] [place] [address] 12/21/2020 08:03:16 12/21/2020 09:16:57 [id number] [address] [place] [address] 06/28/2016 15:17:18 06/28/2016 16:05:30 [id number] [address] [place] [address] 09/13/2021 18:20:53 09/13/2021 19:38:27 [id number] [address] [place] [address] 11/29/2020 16:07:20 11/29/2020 17:06:12 [id number] [address] [place] [address] 10/14/2016 17:41:11 10/14/2016 18:07:37 [id number] FREDDY GUO MD [address] [place] [address] 03/13/2022 15:29:06 03/13/2022 17:21:51 Sore throat 808308995 J02.9 Sore throatClea r liquids for comfortFre sh Helder Root Tea-Cut up fresh helder root and boil it till fragrant. drink the liquid as a tea. Can add Honey to taste. Also For Sore Throat:Thr oat Comfort Tea (by Yogi Brand)Thro at Coat Tea ( by [employer] ) Clear broth soup: Vegetable, Chicken or Beef as tolerated. Cervical lymphadenitis 3784151 I88.9 Health Concerns Section Related Observation LastModified by Organization Detai ls LastModified Time None Recorded Concern Status LastModified by Organization Details LastModified Time None Recorded Advance Directives Directive None Recorded Payers Insurance Date Sequence Insurance Name Policy Number Policy Marcum Covered Member ID Marcum Member ID Guarantor Name 03/13/2022 1 [facility] (MEDICAID HMO) [id number] Reillyjennifer [id number] Purnima Hank Notes Date Note Type Note Provider Name and Address Organization Details Recorded Time 03/13/2022 text/html pt c/o right sided throat pain, fever, weakness x 3 days FREDDY GUO MD [address] [place], [address], [place] - [facility] 03/13/2022 17:34:02 OBGyn Episode No OBEpisode recorded.
--- OUTSIDE RECORDS SUMMARY | 2024-12-21 07:52 | XMS_ITS | Clinical Summary ---
Author Organization [facility] Address [address] [place] [address] Phone Care Team Providers Care Ship Captain Name Role Phone Ana Flores MD Primary Care Provider [phone] Allergies Active Allergy Reactions Criticality Noted Date Comments Amoxicillin 11/21/2023 Medications ferrous sulfate 324 mg (65 mg shoshone-paiute iron) TbEC Take 1 tablet by mouth [...] Pap Test (11/21/2023 12:00 AM EDT) Report [address] [address] Swing Ride Operator: Good Cabello MD CAN SLIDER Cytology Report FINAL DIAGNOSIS A. PAP SMEAR (THIN PREP) CE: SPECIMEN ADEQUACY: Satisfactory for evaluation; transformation zone present. INTERPRETATION: NEGATIVE FOR INTRAEPITHELIAL LESION OR MALIGNANCY. This specimen was analyzed by the automated ThinPrep Imaging System ([employer] Paul.) and the selected pederson were reviewed by a music critic. Electronically Signed Out By: AYDEE Gregory(ASCP) The [...] 59, 66, 68) Note: Testing performed by hint HR-HPV analysis. Clinical correlation is advised. This HPV test was performed at [address] This test has been FDA approved for both SurePath and ThinPrep cervical cytology specimens. The accuracy and precision of this test for all other specimen sources has been verified in the Cytopathology Laboratory of the [facility] and has not been cleared or approved by the U.S. Food and Drug Administration. Clinical correlation is advised. CLINICAL HISTORY Date of Last Menstrual Period: 09-16-2022 Menstrual History: Post Menopausal Other Clinical Conditions: Screening Pap SPECIMEN SOURCE A: PAP SMEAR (THIN PREP) CE Patient Name: SPENCER PEREZ : 1970 (Age: 53) Sex: F Institution[facility] Location: [facility] Date of Collection: 11/21/2023 Date of Reported: 11/26/2023 10:56 Results to: Marcie Ortiz MD [facility] Final Diagnosis A. PAP SMEAR (THIN PREP) CE: SPECIMEN ADEQUACY: Satisfactory for evaluation; transformation zone present. INTERPRETATION: NEGATIVE FOR INTRAEPITHELIAL LESION OR MALIGNANCY. This specimen was analyzed by the automated ThinPrep Imaging System ([employer].) and the selected pederson were reviewed by a music critic. [facility] Results\Inter pretation A. PAP SMEAR (THIN PREP) CE: Human Papilloma Virus TestNEGATIVE for high-risk Human Papilloma Virus types 16, 18, 45 and the Other high risk probe set (Includes 31, 33, 35, 39, 51, 52, 56, 58, 59, 66, 68)Note: Testing performed by [employer] HR-HPV analysis. Clinical correlation is advised. This HPV test was performed at [address] This test has been FDA approved for both SurePath and ThinPrep cervical cytology specimens. The accuracy and precision of this test for all other specimen sources has been verified in the Cytopathology Laboratory of the [facility] and has not been cleared or approved by the U.S. Food and Drug Administration. Clinical correlation is advised. [facility] Conversion Type (Conversion Source) 11/21/2023 11/24/2023 9:24 AM EDT Marcie Ortiz MD CYTOLOGY ORDERABLES Edited Result - Final [facility] [address] [place] [address] from Last 3 Months or Most Recently Relevant to Health Maintenance Insurance [address] [address] NON NSPG PCP SIL[facility] [employer]ITY [facility] NON NSPG PCP S[employer]ITY [facility] NON NSPG PCP S[facility]ITY [facility] NON NSPG PCP S[employer]ITY [employer] [employer] NON NSPG PCP SILVER CLARITY [facility] NON NSPG PCP ROSALINA [facility] [place] [address] Care Teams Ship Captain Relationship Specialty Start Date End Date Ana Flores MD [address] [place] [address] PCP - General Internal Medicine 07/24/23 Additional Source Comments The information contained in this document represents components of the legal health record. It is not the complete legal health record.[facility]
--- NOTE | 2024-12-21 07:59 | A.OFFVIS_ITS ---
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 Patient was refereed by her PCP, 10/01/24. Patient states this has been intermittent for 8 years. Reports difficulty with above the head activities and raising her arms. She states she does Marlo and this has helped relief her symptoms slightly. Tylenol and ibuprofen offers mild relief. 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 The patient does take Advil as needed. She denies any weakness. Allergies amoxicillin (AMOXICILLIN) Allergy (Unknown, Verified 12/21/24 08:02) RASH Medication List - Last Reconciled 12/21/24 by Jayjay Henry MD biotin 10,000 mg PO DAILY cromolyn 4% 1 drp ophthalmic (eye) QID 30 days loratadine 10 mg PO DAILY PRN simvastatin 20 mg PO DAILY 90 days [facility] Medical History Urinary tract infection Surgical History No pertinent past surgical history Family History Other No family history of cancer Social History Household Members: Spouse Housing: House Are you a primary director career services to a significant other at home: No Do you presently have visiting nurse or other home services: No Patient Tobacco Use Status: Never used Tobacco e-Cigarette/Vaping Use: Never Used service: No Current occupational status: employed Cognitive needs: No Hearing needs: No Vision needs: No Physical Exam Vital Signs: BMI result Body Mass Index 23.4 Const Other: Well-nourished well-developed very friendly female awake alert and oriented x3 in no acute distress Extrem Other: Right shoulder examination shows slightly decreased range of motion when compared to her left shoulder, 4+ out of 5 strength with supraspinatus testing, positive impingement signs, tenderness over her acromioclavicular joint, no instability Results Reviewed Results Reviewed: X-rays of the patient's right shoulder show severe acromioclavicular joint narrowing, a type 2 acromion, no acute bony abnormalities Assessment & Plan Assessment & Plan (1) Impingement of right shoulder: Code(s): M25.811 - Other specified joint disorders, right shoulder Category: Medical Plan Ms. Mckinney presents with intermittent right shoulder pain due to impingement syndrome. I had a lengthy discussion with the patient regarding the treatment options. At this point the patient's symptoms are tolerable to her. We will hold off on a cortisone injection. She will continue with her activity modifications. She will follow up with me on an as-needed basis should her symptoms worsen in any way. Feel free to call me at any time should questions regarding her orthopedic management arise. Thank you very much for asking me to see this very friendly patient. I spent 21 minutes in reviewing the patient's records and imaging studies, seeing the patient and documenting in the medical record. Orders: Orders XR shoulder RT min 2V Today M25.511 - Pain in right shoulder Coding Level of Care Code New Pt Level 3 (40527) Complex EM visit Add On G2211 Diagnoses Impingement of right shoulder M25.811
[2024-12-21 08:02] VITALS: BMI 23.4
== END 2024-12-21 08:19 | disposition home or self-care (01) ==
LOC: HO.HOS 07:50
PROVIDERS: PCP Internal Medicine; Visit Provider Orthopaedic Surgery
DX: M25.811 Other specified joint disorders, right shoulder (principal)
CPT/HCPCS: 99203

== ENCOUNTER 2024-12-21 12:43 | Outpatient (REF) | payer OTHER, SELFPAY ==
--- NOTE | ~2024-12-21 | XR_ITS ---
EXAMINATION: XR SHOULDER, RIGHT CLINICAL INFORMATION: M25.511 - Pain in right shoulder COMPARISON: None available. TECHNIQUE: Two views of the right shoulder. FINDINGS: Mild-moderate acromioclavicular arthritis. No acute fracture, dislocation or suspicious bony lesion. No abnormal soft tissue calcification. XR/XR shoulder RT min 2V IMPRESSION: Mild-moderate acromioclavicular arthritis. Electronically signed by: Raymundo Contreras MD 12/22/2024 07:47 AM EST
--- OUTSIDE RECORDS SUMMARY | 2024-12-22 15:20 | XMS_ITS | Clinical Summary ---
Author Organization [facility] Address [address] [place] [address] Phone Care Team Providers Care Manager Sterile Name Role Phone Ana Flores MD Primary Care Provider [phone] Allergies Active Allergy Reactions Criticality Noted Date Comments Amoxicillin 11/21/2023 Medications ferrous sulfate 324 mg (65 mg [place] iron) TbEC Take 1 tablet by mouth [...] Pap Test (11/21/2023 12:00 AM EDT) Report [address] [address] Cap Machine Operator: Good Cabello MD TIME CLOCK INSPECTOR Cytology Report FINAL DIAGNOSIS A. PAP SMEAR (THIN PREP) CE: SPECIMEN ADEQUACY: Satisfactory for evaluation; transformation zone present. INTERPRETATION: NEGATIVE FOR INTRAEPITHELIAL LESION OR MALIGNANCY. This specimen was analyzed by the automated ThinPrep Imaging System ([employer] Paul.) and the selected pederson were reviewed by a halal butcher. Electronically Signed Out By: AYDEE Gregory(ASCP) The [...] 59, 66, 68) Note: Testing performed by [employer] HR-HPV analysis. Clinical correlation is advised. This HPV test was performed at [address] This test has been FDA approved for both SurePath and ThinPrep cervical cytology specimens. The accuracy and precision of this test for all other specimen sources has been verified in the Cytopathology Laboratory of the [facility] and has not been cleared or approved by the U.S. Food and Drug Administration. Clinical correlation is advised. CLINICAL HISTORY Date of Last Menstrual Period: 09-16-2022 Menstrual History: Post Menopausal Other Clinical Conditions: Screening Pap SPECIMEN SOURCE A: PAP SMEAR (THIN PREP) CE Patient Name: SPENCER PEREZ : 1970 (Age: 53) Sex: F Institution: [facility] Location: [facility] Date of Collection: 11/21/2023 Date of Reported: 11/26/2023 10:56 Results to: Marcie Ortiz MD [facility] Final Diagnosis A. PAP SMEAR (THIN PREP) CE: SPECIMEN ADEQUACY: Satisfactory for evaluation; transformation zone present. INTERPRETATION: NEGATIVE FOR INTRAEPITHELIAL LESION OR MALIGNANCY. This specimen was analyzed by the automated ThinPrep Imaging System ([employer].) and the selected pederson were reviewed by a halal butcher. [facility] Results\Inter pretation A. PAP SMEAR (THIN PREP) CE: Human Papilloma Virus TestNEGATIVE for high-risk Human Papilloma Virus types 16, 18, 45 and the Other high risk probe set (Includes 31, 33, 35, 39, 51, 52, 56, 58, 59, 66, 68)Note: Testing performed by [employer] HR-HPV analysis. Clinical correlation is advised. This HPV test was performed at [address] This test has been FDA approved for both SurePath and ThinPrep cervical cytology specimens. The accuracy and precision of this test for all other specimen sources has been verified in the Cytopathology Laboratory of the [facility] and has not been cleared or approved by the U.S. Food and Drug Administration. Clinical correlation is advised. [facility] Conversion Type (Conversion Source) 11/21/2023 11/24/2023 9:24 AM EDT Marcie Ortiz MD CYTOLOGY ORDERABLES Edited Result - Final [facility] [address] [place] [address] from Last 3 Months or Most Recently Relevant to Health Maintenance [place] [address] [place] [address] NON NSPG PCP SILVER CLARITY [facility] NON NSPG PCP S[employer]ITY [employer] [place] NON NSPG PCP SILVER CLARITY [facility] NON NSPG PCP S[employer]ITY [facility] [place] NON NSPG PCP SILVER CLARITY [facility] NON NSPG PCP ROS[facility]INA [facility] Care Teams Manager Sterile Relationship Specialty Start Date End Date Ana Flores MD [address] [place] [address] PCP - General Internal Medicine 07/24/23 Additional Source Comments The information contained in this document represents components of the legal health record. It is not the complete legal health record.[facility]
== END 2024-12-21 12:44 | disposition home or self-care (01) ==
LOC: HO.HOSX 12:43
PROVIDERS: Visit Provider Orthopaedic Surgery
DX: M25.811 Other specified joint disorders, right shoulder (principal); Z79.899 Other long term (current) drug therapy
CPT/HCPCS: 73030; 99202